=== PATIENT | female | born 1980 | race African-American/Black ===

== ENCOUNTER 2018-02-10 23:20 | Inpatient (IN) ==
[2018-02-11 00:41] LABS: Basophils # 0.1 10*3/uL (0.0-0.2); Basophils % 1.2 % (0.0-0.8); Eosinophils # 0.2 10*3/uL (0.0-0.87); Eosinophils % 2.4 % (0.00-10.9); Hematocrit 40.6 VOL% (35.7-47.0); Hemoglobin 13.2 GM/DL (12.0-16.0); Immature Granulocytes % 0.4 %; Immature Granulocytes Absolute 0.03 #; Lymphocytes % 40.1 % (21.3-54.2); Mean Corpuscular HGB Conc 32.5 GM/DL (32-36); Mean Corpuscular Hemoglobin 31 PG (27-34); Mean Corpuscular Volume 95.8 FL (87-102); Mean Platelet Volume 11.5 FL (9.6-12.0); Monocytes # 0.4 10*3/uL (0.11-0.8); Monocytes % 4.8 % (1.7-12.7); Neutrophils # 3.8 10*3/uL (1.4-7.4); Neutrophils % 51.1 % (38.7-73.9); Platelet Count 389 T/CUMM (130-400); Red Blood Count 4.24 MC/CUMM (3.8-5.5); Red Cell Distribution Width 15.9 % (9.3-17.3); White Blood Count 7.4 T/CUMM (4-12)
[2018-02-11 00:45] LABS: Alanine Aminotransferase 81 U/L (13-56); Albumin 3.6 G/DL (3.4-5.0); Alkaline Phosphatase 190 U/L (45-117); Aspartate Amino Transferase 32 U/L (0-37); Bilirubin,Total < 0.39 MG/DL (0.2-1.0); Blood Urea Nitrogen 20 MG/DL (7-18); Calcium 9.2 MG/DL (8.5-10.1); Glucose 369 MG/DL (74-106); Osmolality,Calculated 287.1 MOS/KG (273-304); Potassium 4.4 MMOL/L (3.5-5.1); Sodium 135 MMOL/L (136-145)
[2018-02-11 01:01] LABS: INR 0.9; PT Patient Result 9.8 SECS
[2018-02-11] MEDS ORDERED: INSULIN REGULAR 100 UNIT/ML IV STA (01:29)
[2018-02-11] MEDS ORDERED: SODIUM CHLORIDE 0.9% 1,000 ML IV STA (01:29)
[2018-02-11] MEDS ORDERED: MORPHINE 4 MG/1 ML VIAL IV STA (01:30)
[2018-02-11] MEDS ORDERED: ONDANSETRON 4 MG/2 ML VIAL IV STA (01:30)
[2018-02-11 01:31] LABS: Apearance,Urine CLOUDY (Clear); Bilirubin,Urine Negative (Negative); Blood, Urine Negative (Negative); Glucose,Urine (UA) >=500 mg/dL (Negative); Ketones,Urine 80 mg/dL (Negative); Nitrite,Urine Negative (Negative); Protein,Urine Negative; RBC,Urine 6 /HPF (0-4); Squamous Epithelial Cell,Urine Moderate /HPF (0-10); Urine Color Yellow (Yellow); Urine Urobilinogen < 2.0 EU/DL (0.2-1.0); WBC,Urine 8 /HPF (0-6)
[2018-02-11] MEDS ORDERED: HYDROmorphone 2 MG/1 ML VIAL IV STA (02:10)
[2018-02-11] MEDS ORDERED: DEXTROSE 50% 25 GM/50 ML VIAL IV PRN (04:16)
[2018-02-11] MEDS ORDERED: GLUCAGON 1 MG VIAL IM PRN (04:16)
[2018-02-11] MEDS ORDERED: ACETAMINOPHEN 325 MG TABLET PO PRN (04:16)
[2018-02-11] MEDS ORDERED: ZALEPLON 5 MG CAPSULE PO PRN (04:20)
[2018-02-11] MEDS ORDERED: ALBUTEROL 2.5 MG/3 ML NEB RESP TX PRN (04:20)
[2018-02-11] MEDS ORDERED: SODIUM CHLORIDE 0.9% 1,000 ML IV SCH (04:30)
[2018-02-11] MEDS: MORPHINE 4 MG/1 ML VIAL IV PRN ×4 (07:02→22:12)
[2018-02-11] MEDS: ONDANSETRON 4 MG/2 ML VIAL IV PRN ×2 (08:17→20:31)
[2018-02-11] MEDS: ENOXAPARIN 40 MG/0.4 ML SYRINGE SUBCUT SCH (08:20)
[2018-02-11] MEDS: PREGABALIN 75 MG CAPSULE PO SCH ×2 (08:25→20:32)
[2018-02-11] MEDS: FAMOTIDINE 20 MG TABLET PO SCH ×2 (08:25→20:32)
[2018-02-11] MEDS: LISINOPRIL 10 MG TABLET PO SCH (08:25)
[2018-02-11] MEDS: INSULIN LISPRO PROTAMINE/LISPRO 75/25 100 UNIT/ML SUBCUT SCH ×2 (08:39→18:09)
[2018-02-11] MEDS: INSULIN REGULAR 100 UNIT/ML SUBCUT SCH ×3 (08:40→15:31)
[2018-02-11] MEDS: INSULIN LISPRO 100 UNIT/ML SUBCUT SCH ×4 (08:42→20:30)
[2018-02-11] MEDS ORDERED: PANTOPRAZOLE 40 MG VIAL IV SCH (09:00)
[2018-02-11] MEDS: METOCLOPRAMIDE 10 MG/2 ML VIAL IV SCH ×2 (13:05→18:14)
[2018-02-11] MEDS: ALPRAZolam 0.25 MG TABLET PO PRN (13:15)
[2018-02-11] MEDS: SODIUM CHLORIDE 0.9% 1,000 ML IV SCH (13:20)
[2018-02-11] MEDS: PANTOPRAZOLE 40 MG TABLET PO SCH ×2 (14:22→20:32)
[2018-02-11] MEDS ORDERED: ATORVASTATIN 40 MG TABLET PO SCH (21:00)
[2018-02-12] MEDS: METOCLOPRAMIDE 10 MG/2 ML VIAL IV SCH ×3 (00:32→13:11)
[2018-02-12] MEDS: ONDANSETRON 4 MG/2 ML VIAL IV PRN ×3 (00:33→13:12)
[2018-02-12] MEDS: SODIUM CHLORIDE 0.9% 1,000 ML IV SCH (01:54)
[2018-02-12] MEDS: MORPHINE 4 MG/1 ML VIAL IV PRN ×3 (04:16→13:10)
[2018-02-12] MEDS: ALPRAZolam 0.25 MG TABLET PO PRN (05:26)
[2018-02-12 06:29] LABS: Basophils # 0.1 10*3/uL (0.0-0.2); Basophils % 0.6 % (0.0-0.8); Eosinophils # 0.2 10*3/uL (0.0-0.87); Eosinophils % 2.9 % (0.00-10.9); Hematocrit 31.8 VOL% (35.7-47.0); Immature Granulocytes % 0.4 %; Immature Granulocytes Absolute 0.03 #; Lymphocytes # 3.1 10*3/uL (1.4-4.0); Lymphocytes % 38.3 % (21.3-54.2); Mean Corpuscular HGB Conc 31.4 GM/DL (32-36); Mean Corpuscular Hemoglobin 30 PG (27-34); Mean Corpuscular Volume 96.1 FL (87-102); Mean Platelet Volume 10.9 FL (9.6-12.0); Monocytes # 0.4 10*3/uL (0.11-0.8); Monocytes % 5.1 % (1.7-12.7); Neutrophils # 4.2 10*3/uL (1.4-7.4); Neutrophils % 52.7 % (38.7-73.9); Platelet Count 287 T/CUMM (130-400); Red Blood Count 3.31 MC/CUMM (3.8-5.5)
[2018-02-12 07:08] LABS: Alanine Aminotransferase 48 U/L (13-56); Albumin 2.7 G/DL (3.4-5.0); Alkaline Phosphatase 125 U/L (45-117); Amylase 39 U/L (25-115); Aspartate Amino Transferase 22 U/L (0-37); Bilirubin,Total < 0.39 MG/DL (0.2-1.0); Blood Urea Nitrogen 13 MG/DL (7-18); Calcium 8.2 MG/DL (8.5-10.1); Glucose 182 MG/DL (74-106); Osmolality,Calculated 283.4 MOS/KG (273-304); Potassium 4.1 MMOL/L (3.5-5.1); Sodium 140 MMOL/L (136-145); Total Protein 6.4 G/DL (6.4-8.3)
[2018-02-12] MEDS: INSULIN LISPRO PROTAMINE/LISPRO 75/25 100 UNIT/ML SUBCUT SCH (08:20)
[2018-02-12] MEDS: INSULIN LISPRO 100 UNIT/ML SUBCUT SCH ×2 (08:21→11:54)
[2018-02-12] MEDS: FAMOTIDINE 20 MG TABLET PO SCH (08:21)
[2018-02-12] MEDS: INSULIN REGULAR 100 UNIT/ML SUBCUT SCH ×2 (08:21→11:55)
[2018-02-12] MEDS: PANTOPRAZOLE 40 MG TABLET PO SCH (08:22)
[2018-02-12] MEDS: LISINOPRIL 10 MG TABLET PO SCH (08:22)
[2018-02-12] MEDS: PREGABALIN 75 MG CAPSULE PO SCH (08:22)
[2018-02-12] MEDS: ENOXAPARIN 40 MG/0.4 ML SYRINGE SUBCUT SCH (08:22)
[2018-02-12] MEDS ORDERED: ALUM/MAG/SIMETH/LIDO VISC 1:1 30 ML BOTTLE PO PRN (08:36)
[2018-02-12] MEDS ORDERED: METOPROLOL TARTRATE 25 MG TABLET PO SCH (11:30)
[2018-02-12 12:38] VITALS: BP 138/83
== END 2018-02-12 14:22 | disposition home health service (06) | DRG 48 ==
LOC: N.ED 23:20 → N.EDINP 02-11 04:16 → MERGE 02-11 04:17 → SUATTDRO 02-11 04:17 → N.2E 02-11 05:19
PROVIDERS: ADMIT Internal Medicine; ATTEND Internal Medicine

== ENCOUNTER 2018-02-14 14:19 | Inpatient (IN) ==
[2018-02-14] MEDS ORDERED: ONDANSETRON 4 MG/2 ML VIAL IV STA (15:26)
[2018-02-14] MEDS ORDERED: SODIUM CHLORIDE 0.9% 1,000 ML IV STA ×2 (15:26→16:56)
[2018-02-14] MEDS ORDERED: ONDANSETRON 4 MG/2 ML VIAL ONE (15:28)
[2018-02-14 15:29] LABS: Basophils # 0.1 10*3/uL (0.0-0.2); Basophils % 0.7 % (0.0-0.8); Eosinophils # 0.2 10*3/uL (0.0-0.87); Eosinophils % 2.1 % (0.00-10.9); Hematocrit 37.1 VOL% (35.7-47.0); Immature Granulocytes % 0.6 %; Immature Granulocytes Absolute 0.05 #; Lymphocytes # 1.7 10*3/uL (1.4-4.0); Lymphocytes % 19.9 % (21.3-54.2); Mean Corpuscular HGB Conc 32.3 GM/DL (32-36); Mean Corpuscular Hemoglobin 31 PG (27-34); Mean Corpuscular Volume 95.9 FL (87-102); Mean Platelet Volume 11.3 FL (9.6-12.0); Monocytes # 0.4 10*3/uL (0.11-0.8); Monocytes % 4.7 % (1.7-12.7); Neutrophils # 6.2 10*3/uL (1.4-7.4); Platelet Count 316 T/CUMM (130-400); Red Blood Count 3.87 MC/CUMM (3.8-5.5); Red Cell Distribution Width 16.3 % (9.3-17.3); White Blood Count 8.5 T/CUMM (4-12)
[2018-02-14 15:41] LABS: Calcium 9.1 MG/DL (8.5-10.1); Osmolality,Calculated 285.4 MOS/KG (273-304); Potassium 4.9 MMOL/L (3.5-5.1)
[2018-02-14 15:46] LABS: Apearance,Urine Slightly Hazy (Clear); Bacteria,Urine Occasional /HPF (Few); Bilirubin,Urine Negative (Negative); Blood, Urine Negative (Negative); Glucose,Urine (UA) >=500 mg/dL (Negative); Hyaline Casts,Urine 1 /LPF (0-3); Ketones,Urine 20 mg/dL (Negative); Nitrite,Urine Negative (Negative); Protein,Urine Negative; RBC,Urine 2 /HPF (0-4); Squamous Epithelial Cell,Urine Few /HPF (0-10); Urine Color Yellow (Yellow); Urine Specific Gravity 1.025 (1.001-1.035); Urine Urobilinogen < 2.0 EU/DL (0.2-1.0); WBC,Urine 5 /HPF (0-6)
[2018-02-14 15:49] LABS: Barbiturates Screen,Urine Negative (Negative); Benzodiazepines Screen,Urine Negative (Negative); Cannabinoid Screen,Urine Negative (Negative); Opiate Screen,Urine Positive (Negative); Phencyclidine Screen,Urine Negative (Negative)
[2018-02-14] MEDS ORDERED: MORPHINE 4 MG/1 ML VIAL IV STA (16:01)
[2018-02-14] MEDS ORDERED: MORPHINE 4 MG/1 ML VIAL ONE (16:17)
[2018-02-14 16:19] LABS: Alanine Aminotransferase 94 U/L (13-56); Albumin 3.3 G/DL (3.4-5.0); Alkaline Phosphatase 186 U/L (45-117); Aspartate Amino Transferase 94 U/L (0-37); Bilirubin,Total < 0.39 MG/DL (0.2-1.0); Blood Urea Nitrogen 15 MG/DL (7-18); Calcium 8.9 MG/DL (8.5-10.1); Glucose 436 MG/DL (74-106); Osmolality,Calculated 289.1 MOS/KG (273-304); Sodium 135 MMOL/L (136-145); Total Protein 7.6 G/DL (6.4-8.3)
[2018-02-14 16:48] LABS: Lactic Acid 0.9 MMOL/L (0.4-2.0)
[2018-02-14] MEDS ORDERED: INSULIN REGULAR 100 UNIT/ML IV STA (18:20)
[2018-02-14] MEDS ORDERED: ONDANSETRON 4 MG/2 ML VIAL IV PRN (20:42)
[2018-02-14] MEDS ORDERED: PROMETHAZINE 25 MG/1 ML VIAL IM PRN (20:42)
[2018-02-14] MEDS ORDERED: ZALEPLON 5 MG CAPSULE PO PRN (20:42)
[2018-02-14] MEDS ORDERED: DEXTROSE 50% 25 GM/50 ML VIAL IV PRN (20:42)
[2018-02-14] MEDS ORDERED: ACETAMINOPHEN 325 MG TABLET PO PRN (20:42)
[2018-02-14] MEDS ORDERED: cefTRIAXone 1,000 MG in SYRINGE 1 EACH IV SCH (21:00)
[2018-02-14] MEDS ORDERED: ENOXAPARIN 40 MG/0.4 ML SYRINGE SUBCUT SCH (21:00)
[2018-02-14] MEDS ORDERED: ATORVASTATIN 40 MG TABLET PO SCH (21:00)
[2018-02-14] MEDS: SODIUM CHLORIDE 0.9% 1,000 ML IV SCH (22:00)
[2018-02-14] MEDS ORDERED: MORPHINE 4 MG/1 ML VIAL IV ONE (22:06)
[2018-02-14] MEDS: INSULIN REGULAR 100 UNIT/ML SUBCUT SCH (22:20)
[2018-02-14] MEDS: ALPRAZolam 0.25 MG TABLET PO SCH (22:30)
[2018-02-14] MEDS: METOPROLOL TARTRATE 25 MG TABLET PO SCH (22:30)
[2018-02-14] MEDS: PREGABALIN 75 MG CAPSULE PO SCH (22:40)
[2018-02-14 23:04] LABS: Apearance,Urine Slightly Hazy (Clear); Bilirubin,Urine Negative (Negative); Blood, Urine Negative (Negative); Glucose,Urine (UA) >=500 mg/dL (Negative); Ketones,Urine 80 mg/dL (Negative); Nitrite,Urine Negative (Negative); Protein,Urine Negative; RBC,Urine 2 /HPF (0-4); Squamous Epithelial Cell,Urine Occasional /HPF (0-10); Urine Color Straw (Yellow); Urine Specific Gravity 1.021 (1.001-1.035); Urine Urobilinogen < 2.0 EU/DL (0.2-1.0); WBC,Urine 3 /HPF (0-6)
[2018-02-14] MEDS: ALUM/MAG/SIMETH/LIDO VISC 1:1 30 ML BOTTLE PO SCH ×2 (23:39→23:48)
[2018-02-14] MEDS: METOCLOPRAMIDE 10 MG/2 ML VIAL IV SCH (23:43)
[2018-02-15] MEDS: INSULIN LISPRO PROTAMINE/LISPRO 75/25 100 UNIT/ML SUBCUT SCH ×2 (00:42→08:55)
[2018-02-15] MEDS: KETOROLAC 15 MG/1 ML VIAL IV PRN ×3 (02:41→15:15)
[2018-02-15] MEDS: SODIUM CHLORIDE 0.9% 1,000 ML IV SCH ×4 (02:42→13:28)
[2018-02-15] MEDS: METOCLOPRAMIDE 10 MG/2 ML VIAL IV SCH ×3 (02:42→15:16)
[2018-02-15 03:36] LABS: Basophils # 0.1 10*3/uL (0.0-0.2); Basophils % 0.8 % (0.0-0.8); Eosinophils # 0.3 10*3/uL (0.0-0.87); Hematocrit 35.3 VOL% (35.7-47.0); Hemoglobin 11.5 GM/DL (12.0-16.0); Immature Granulocytes % 0.4 %; Immature Granulocytes Absolute 0.05 #; Lymphocytes # 6.2 10*3/uL (1.4-4.0); Mean Corpuscular HGB Conc 32.6 GM/DL (32-36); Mean Corpuscular Hemoglobin 31 PG (27-34); Mean Corpuscular Volume 94.4 FL (87-102); Mean Platelet Volume 11.4 FL (9.6-12.0); Monocytes # 1.1 10*3/uL (0.11-0.8); Monocytes % 7.7 % (1.7-12.7); Neutrophils # 6.4 10*3/uL (1.4-7.4); Neutrophils % 45.1 % (38.7-73.9); Platelet Count 354 T/CUMM (130-400); Red Blood Count 3.74 MC/CUMM (3.8-5.5); Red Cell Distribution Width 16.3 % (9.3-17.3); White Blood Count 14.1 T/CUMM (4-12)
[2018-02-15 03:43] LABS: Alanine Aminotransferase 70 U/L (13-56); Albumin 3.2 G/DL (3.4-5.0); Alkaline Phosphatase 157 U/L (45-117); Aspartate Amino Transferase 41 U/L (0-37); Bilirubin,Total < 0.39 MG/DL (0.2-1.0); Blood Urea Nitrogen 13 MG/DL (7-18); Calcium 9.1 MG/DL (8.5-10.1); Osmolality,Calculated 278.1 MOS/KG (273-304); Potassium 3.2 MMOL/L (3.5-5.1); Sodium 142 MMOL/L (136-145); Total Protein 7.4 G/DL (6.4-8.3)
[2018-02-15 03:45] LABS: Glucose 28 MG/DL (74-106)
[2018-02-15] MEDS: ALUM/MAG/SIMETH/LIDO VISC 1:1 30 ML BOTTLE PO SCH ×3 (06:42→17:38)
[2018-02-15] MEDS: INSULIN REGULAR 100 UNIT/ML SUBCUT SCH ×3 (08:28→15:29)
[2018-02-15] MEDS: METOPROLOL TARTRATE 25 MG TABLET PO SCH (08:28)
[2018-02-15] MEDS: PREGABALIN 75 MG CAPSULE PO SCH (08:28)
[2018-02-15] MEDS: ALPRAZolam 0.25 MG TABLET PO SCH (08:28)
[2018-02-15] MEDS ORDERED: POTASSIUM CHLORIDE RIDER 10 MEQ in PREMIX 1 EACH IV PRN (08:46)
[2018-02-15] MEDS ORDERED: LISINOPRIL 10 MG TABLET PO SCH (09:00)
[2018-02-15] MEDS ORDERED: POTASSIUM CHLORIDE 20 MEQ/15 ML UDCUP PER TUBE PRN (10:07)
[2018-02-15] MEDS ORDERED: traMADol 50 MG TABLET PO PRN (15:07)
[2018-02-15 15:46] VITALS: BP 176/91
[2018-02-15] MEDS ORDERED: INSULIN LISPRO PROTAMINE/LISPRO 75/25 100 UNIT/ML SUBCUT SCH (16:30)
[2018-02-16] MEDS ORDERED: INSULIN LISPRO PROTAMINE/LISPRO 75/25 100 UNIT/ML SUBCUT SCH (07:30)
== END 2018-02-15 18:45 | disposition left against medical advice (07) | DRG 48 ==
LOC: N.ED 14:19 → MERGE 18:18 → N.CC 18:18 → N.2E 02-15 13:42
PROVIDERS: ADMIT Internal Medicine; ATTEND Internal Medicine

== ENCOUNTER 2018-02-26 22:32 | Inpatient (IN) ==
[2018-02-26] MEDS ORDERED: FUROSEMIDE 20 MG/2 ML VIAL ONE (22:42)
[2018-02-26] MEDS ORDERED: ONDANSETRON 4 MG/2 ML VIAL ONE (22:43)
[2018-02-26] MEDS ORDERED: MORPHINE 4 MG/1 ML VIAL ONE (22:43)
[2018-02-26] MEDS ORDERED: ONDANSETRON 4 MG/2 ML VIAL IV STA (22:56)
[2018-02-26] MEDS ORDERED: ASPIRIN 325 MG TABLET PO STA (22:56)
[2018-02-26] MEDS ORDERED: LEVALBUTEROL 1.25 MG/3 ML NEB RESP TX STA (22:56)
[2018-02-26] MEDS ORDERED: FUROSEMIDE 100 MG/10 ML VIAL IV STA (22:56)
[2018-02-26] MEDS ORDERED: methylPREDNISolone SOD SUC 125 MG/2 ML VIAL IV STA (22:56)
[2018-02-26] MEDS ORDERED: ENOXAPARIN 100 MG/ML SYRINGE SUBCUT STA (22:56)
[2018-02-26] MEDS ORDERED: MORPHINE 4 MG/1 ML VIAL IV STA (22:56)
[2018-02-26 23:05] LABS: Basophils # 0.1 10*3/uL (0.0-0.2); Basophils % 0.4 % (0.0-0.8); Eosinophils # 0.4 10*3/uL (0.0-0.87); Eosinophils % 2.1 % (0.00-10.9); Hematocrit 35.6 VOL% (35.7-47.0); Hemoglobin 11.4 GM/DL (12.0-16.0); Immature Granulocytes % 0.6 %; Lymphocytes # 2.1 10*3/uL (1.4-4.0); Lymphocytes % 12.1 % (21.3-54.2); Mean Corpuscular Hemoglobin 30 PG (27-34); Mean Corpuscular Volume 94.4 FL (87-102); Mean Platelet Volume 12.1 FL (9.6-12.0); Monocytes # 0.8 10*3/uL (0.11-0.8); Monocytes % 4.6 % (1.7-12.7); Neutrophils # 13.9 10*3/uL (1.4-7.4); Neutrophils % 80.2 % (38.7-73.9); Platelet Count 343 T/CUMM (130-400); Red Blood Count 3.77 MC/CUMM (3.8-5.5); Red Cell Distribution Width 16.3 % (9.3-17.3); White Blood Count 17.3 T/CUMM (4-12)
[2018-02-26 23:16] LABS: INR 0.9; PT Patient Result 9.5 SECS
[2018-02-26 23:33] LABS: Alanine Aminotransferase 293 U/L (13-56); Alkaline Phosphatase 310 U/L (45-117); Aspartate Amino Transferase 242 U/L (0-37); Blood Urea Nitrogen 20 MG/DL (7-18); Calcium 9.2 MG/DL (8.5-10.1); Glucose 227 MG/DL (74-106); Osmolality,Calculated 279.1 MOS/KG (273-304); Sodium 135 MMOL/L (136-145); Total Protein 8.2 G/DL (6.4-8.3); Troponin I < 0.015 NG/ML (0.00-0.045)
[2018-02-26 23:34] LABS: ABG Base Excess -0.9 MMOL/L (-2.5-2.5); ABG Oxygen Saturation 97.1 % (95-100); ABG PCO2 31.1 MM HG (35-48); ABG PH 7.468 (7.35-7.45)
[2018-02-26 23:58] LABS: Apearance,Urine CLEAR (Clear); Bacteria,Urine Occasional /HPF (Few); Bilirubin,Urine Negative (Negative); Blood, Urine Large mg/dL (Negative); Glucose,Urine (UA) 50 mg/dL (Negative); Ketones,Urine Negative (Negative); Mucus,Urine Occasional /LPF (Occasional); Nitrite,Urine Negative (Negative); Protein,Urine Negative; RBC,Urine <1 /HPF (0-4); Squamous Epithelial Cell,Urine Occasional /HPF (0-10); Urine Color Straw (Yellow); Urine Specific Gravity 1.008 (1.001-1.035); Urine Urobilinogen < 2.0 EU/DL (0.2-1.0); WBC,Urine 1 /HPF (0-6)
[2018-02-27] MEDS ORDERED: LEVOFLOXACIN INJ 750 MG in PREMIX 1 EACH IV STA (00:01)
[2018-02-27 00:02] LABS: Barbiturates Screen,Urine Negative (Negative); Benzodiazepines Screen,Urine Negative (Negative); Cannabinoid Screen,Urine Negative (Negative); Opiate Screen,Urine Positive (Negative); Phencyclidine Screen,Urine Negative (Negative)
[2018-02-27] MEDS ORDERED: LORazepam 2 MG/1 ML VIAL IV STA (00:22)
[2018-02-27] MEDS ORDERED: traZODone 50 MG TABLET PO PRN (01:23)
[2018-02-27] MEDS ORDERED: ACETAMINOPHEN 325 MG TABLET PO PRN (01:23)
[2018-02-27] MEDS ORDERED: GLUCAGON 1 MG VIAL IM PRN (01:30)
[2018-02-27] MEDS ORDERED: DEXTROSE 50% 25 GM/50 ML VIAL IV PRN (01:30)
[2018-02-27 01:55] LABS: ABG Base Excess -0.3 MMOL/L (-2.5-2.5); ABG HCO3 24.2 MMOL/L (20-26); ABG Oxygen Saturation 97.1 % (95-100); ABG PCO2 31.3 MM HG (35-48); ABG PH 7.468 (7.35-7.45); ABG PO2 83.9 MM HG (80-95); ABG TCO2 20.3 MMOL/L (23-27); Allen Test Positive
[2018-02-27] MEDS ORDERED: PIPERACILLIN/TAZOBACTAM 3,375 MG in SODIUM CHLORIDE 0.9% 100 ML IV ONE (04:30)
[2018-02-27] MEDS: VANCOMYCIN INJ 1,000 MG in SODIUM CHLORIDE 0.9% 250 ML IV SCH ×2 (04:31→15:31)
[2018-02-27 05:03] LABS: Basophils # 0.1 10*3/uL (0.0-0.2); Basophils % 0.5 % (0.0-0.8); Eosinophils # 0.2 10*3/uL (0.0-0.87); Eosinophils % 0.9 % (0.00-10.9); Hematocrit 32.6 VOL% (35.7-47.0); Hemoglobin 10.6 GM/DL (12.0-16.0); Immature Granulocytes % 0.6 %; Immature Granulocytes Absolute 0.11 #; Lymphocytes # 1.3 10*3/uL (1.4-4.0); Lymphocytes % 7.6 % (21.3-54.2); Mean Corpuscular HGB Conc 32.5 GM/DL (32-36); Mean Corpuscular Hemoglobin 30 PG (27-34); Mean Corpuscular Volume 93.1 FL (87-102); Mean Platelet Volume 12.5 FL (9.6-12.0); Monocytes # 0.6 10*3/uL (0.11-0.8); Monocytes % 3.4 % (1.7-12.7); Neutrophils # 15.3 10*3/uL (1.4-7.4); Platelet Count 305 T/CUMM (130-400); Red Cell Distribution Width 16.3 % (9.3-17.3); White Blood Count 17.6 T/CUMM (4-12)
[2018-02-27 05:29] LABS: Calcium 8.7 MG/DL (8.5-10.1); Osmolality,Calculated 272.2 MOS/KG (273-304); Potassium 3.9 MMOL/L (3.5-5.1)
[2018-02-27 05:47] LABS: HIV Antigen/Antibody Result Nonreactive (Nonreactive); Hepatitis A Ab IgM Quant 0.14 Index; Hepatitis A Ab IgM Result Negative (Negative); Hepatitis B Core IgM Quant 0.07 Index; Hepatitis B Core IgM Result Negative (Negative); Hepatitis B Surface Ag Quant 0.33 Index; Hepatitis B Surface Ag Result Negative (Negative); Hepatitis C Virus Ab Quant 0.13 Index; Hepatitis C Virus Ab Result Negative (Negative)
[2018-02-27] MEDS: ENOXAPARIN 40 MG/0.4 ML SYRINGE SUBCUT SCH (08:45)
[2018-02-27] MEDS: FUROSEMIDE 40 MG/4 ML VIAL IV SCH (08:45)
[2018-02-27] MEDS: INSULIN LISPRO 100 UNIT/ML SUBCUT SCH ×4 (08:45→21:14)
[2018-02-27] MEDS ORDERED: PROMETHAZINE 25 MG TABLET PO PRN (09:40)
[2018-02-27] MEDS ORDERED: ZALEPLON 5 MG CAPSULE PO PRN (09:40)
[2018-02-27] MEDS ORDERED: ALBUTEROL 2.5 MG/3 ML NEB RESP TX PRN (09:40)
[2018-02-27] MEDS ORDERED: ALPRAZolam 0.25 MG TABLET PO PRN (09:40)
[2018-02-27] MEDS: PANTOPRAZOLE 40 MG TABLET PO SCH ×2 (09:50→21:17)
[2018-02-27] MEDS: LISINOPRIL 10 MG TABLET PO SCH (10:30)
[2018-02-27] MEDS: METOPROLOL TARTRATE 25 MG TABLET PO SCH ×2 (10:30→21:16)
[2018-02-27] MEDS: FAMOTIDINE 20 MG TABLET PO SCH ×2 (10:30→21:15)
[2018-02-27] MEDS: PREGABALIN 75 MG CAPSULE PO SCH ×2 (10:30→21:22)
[2018-02-27] MEDS: METOCLOPRAMIDE 5 MG TABLET PO SCH ×2 (11:42→16:44)
[2018-02-27] MEDS: MORPHINE 4 MG/1 ML VIAL IV PRN ×3 (11:42→21:11)
[2018-02-27] MEDS: INSULIN REGULAR 100 UNIT/ML SUBCUT SCH ×2 (12:33→16:44)
[2018-02-27] MEDS ORDERED: INSULIN LISPRO 100 UNIT/ML SUBCUT ONE (15:30)
[2018-02-27] MEDS: ALBUTEROL 2.5 MG/3 ML NEB RESP TX PRN ×2 (15:40→17:58)
[2018-02-27] MEDS: ONDANSETRON 4 MG/2 ML VIAL IV PRN (17:32)
[2018-02-27] MEDS ORDERED: ATORVASTATIN 40 MG TABLET PO SCH (21:00)
[2018-02-27] MEDS: INSULIN LISPRO PROTAMINE/LISPRO 75/25 100 UNIT/ML SUBCUT SCH (21:13)
[2018-02-28] MEDS: ALBUTEROL 2.5 MG/3 ML NEB RESP TX PRN ×2 (00:01→04:49)
[2018-02-28] MEDS: ONDANSETRON 4 MG/2 ML VIAL IV PRN ×2 (01:12→07:49)
[2018-02-28] MEDS: MORPHINE 4 MG/1 ML VIAL IV PRN ×3 (01:14→13:53)
[2018-02-28] MEDS: VANCOMYCIN INJ 1,000 MG in SODIUM CHLORIDE 0.9% 250 ML IV SCH (03:23)
[2018-02-28] MEDS ORDERED: LEVOFLOXACIN INJ 750 MG in PREMIX 1 EACH IV SCH (04:00)
[2018-02-28] MEDS: PREGABALIN 75 MG CAPSULE PO SCH (09:09)
[2018-02-28] MEDS: METOPROLOL TARTRATE 25 MG TABLET PO SCH (09:09)
[2018-02-28] MEDS: FAMOTIDINE 20 MG TABLET PO SCH (09:09)
[2018-02-28] MEDS: PANTOPRAZOLE 40 MG TABLET PO SCH (09:09)
[2018-02-28] MEDS: ENOXAPARIN 40 MG/0.4 ML SYRINGE SUBCUT SCH (09:09)
[2018-02-28] MEDS: METOCLOPRAMIDE 5 MG TABLET PO SCH ×2 (09:09→12:12)
[2018-02-28] MEDS: LISINOPRIL 10 MG TABLET PO SCH (09:09)
[2018-02-28] MEDS: INSULIN LISPRO 100 UNIT/ML SUBCUT SCH ×2 (09:10→12:12)
[2018-02-28] MEDS: INSULIN LISPRO PROTAMINE/LISPRO 75/25 100 UNIT/ML SUBCUT SCH (09:10)
[2018-02-28] MEDS: INSULIN REGULAR 100 UNIT/ML SUBCUT SCH ×2 (09:11→12:12)
[2018-02-28] MEDS: FUROSEMIDE 40 MG/4 ML VIAL IV SCH (09:11)
[2018-02-28 12:24] VITALS: BP 97/50
[2018-02-28] MEDS ORDERED: VANCOMYCIN INJ 1,000 MG in SODIUM CHLORIDE 0.9% 250 ML IV SCH (17:00)
== END 2018-02-28 16:15 | disposition left against medical advice (07) | DRG 139 ==
LOC: N.ED 22:32 → N.EDINP 02-27 01:23 → SUATTDRO 02-27 01:26 → N.ICU 02-27 03:02 → N.5E 02-28 04:10
PROVIDERS: ADMIT Internal Medicine; ATTEND Internal Medicine

== ENCOUNTER 2018-03-11 09:48 | Inpatient (IN) ==
[2018-03-11] MEDS ORDERED: SODIUM CHLORIDE 0.9% 1,000 ML IV STA (10:05)
[2018-03-11] MEDS ORDERED: PANTOPRAZOLE 40 MG VIAL IV STA (10:05)
[2018-03-11] MEDS ORDERED: ONDANSETRON 4 MG/2 ML VIAL IV STA (10:05)
[2018-03-11] MEDS ORDERED: HYDROmorphone 2 MG/1 ML VIAL IV ONE (10:10)
[2018-03-11] MEDS ORDERED: INSULIN REGULAR 100 UNIT/ML IV STA (10:12)
[2018-03-11 10:23] LABS: ABG Base Excess -10.1 MMOL/L (-2.5-2.5); ABG HCO3 16.4 MMOL/L (20-26); ABG Oxygen Saturation 96.2 % (95-100); ABG PCO2 33.1 MM HG (35-48); ABG PH 7.284 (7.35-7.45); ABG PO2 92.6 MM HG (80-95); ABG TCO2 14.2 MMOL/L (23-27)
[2018-03-11 10:26] LABS: Basophils # 0.1 10*3/uL (0.0-0.2); Basophils % 1.3 % (0.0-0.8); Eosinophils # 0.3 10*3/uL (0.0-0.87); Hematocrit 39.8 VOL% (35.7-47.0); Hemoglobin 12.3 GM/DL (12.0-16.0); Immature Granulocytes % 0.5 %; Immature Granulocytes Absolute 0.04 #; Lymphocytes # 2.5 10*3/uL (1.4-4.0); Lymphocytes % 29.5 % (21.3-54.2); Mean Corpuscular HGB Conc 30.9 GM/DL (32-36); Mean Corpuscular Hemoglobin 30 PG (27-34); Mean Corpuscular Volume 97.1 FL (87-102); Mean Platelet Volume 11.3 FL (9.6-12.0); Monocytes # 0.5 10*3/uL (0.11-0.8); Monocytes % 5.9 % (1.7-12.7); Neutrophils # 5.1 10*3/uL (1.4-7.4); Neutrophils % 59.8 % (38.7-73.9); Platelet Count 388 T/CUMM (130-400); Red Cell Distribution Width 15.7 % (9.3-17.3); White Blood Count 8.5 T/CUMM (4-12)
[2018-03-11 10:40] LABS: Apearance,Urine CLOUDY (Clear); Bacteria,Urine Occasional /HPF (Few); Bilirubin,Urine Negative (Negative); Blood, Urine Negative (Negative); Glucose,Urine (UA) >=500 mg/dL (Negative); Hyaline Casts,Urine 10 /LPF (0-3); Ketones,Urine 80 mg/dL (Negative); Mucus,Urine Few /LPF (Occasional); Nitrite,Urine Negative (Negative); Protein,Urine 100 MG/DL; RBC,Urine 2 /HPF (0-4); Squamous Epithelial Cell,Urine Moderate /HPF (0-10); Urine Color Yellow (Yellow); Urine Specific Gravity 1.018 (1.001-1.035); WBC,Urine 15 /HPF (0-6)
[2018-03-11 10:49] LABS: Barbiturates Screen,Urine Negative (Negative); Benzodiazepines Screen,Urine Negative (Negative); Cannabinoid Screen,Urine Negative (Negative); Opiate Screen,Urine Negative (Negative); Phencyclidine Screen,Urine Negative (Negative)
[2018-03-11] MEDS ORDERED: SODIUM BICARBONATE 50 MEQ/50 ML VIAL IV STA (10:54)
[2018-03-11] MEDS ORDERED: SODIUM BICARBONATE 50 MEQ/50 ML SYRINGE IV ONE (10:57)
[2018-03-11] MEDS ORDERED: PROMETHAZINE 25 MG/1 ML VIAL ONE (11:11)
[2018-03-11] MEDS ORDERED: PROMETHAZINE 25 MG/1 ML VIAL IM STA (11:17)
[2018-03-11 11:18] LABS: Lactic Acid 1.8 MMOL/L (0.4-2.0)
[2018-03-11 11:19] LABS: Albumin 3.5 G/DL (3.4-5.0); Bilirubin,Total 0.4 MG/DL (0.2-1.0); Calcium 9.7 MG/DL (8.5-10.1); Osmolality,Calculated 283.4 MOS/KG (273-304); Potassium 4.9 MMOL/L (3.5-5.1); Total Protein 8.1 G/DL (6.4-8.3)
[2018-03-11] MEDS ORDERED: MAGNESIUM SULF RIDER 4 GM in PREMIX 1 EACH IV PRN (11:41)
[2018-03-11] MEDS ORDERED: SODIUM PHOSPHATE INJ 17.5 MMOL in SODIUM CHLORIDE 0.9% 250 ML IV PRN (11:41)
[2018-03-11] MEDS ORDERED: SODIUM BICARB INJ 100 MEQ in STERILE WATER INJ 400 ML IV PRN (11:41)
[2018-03-11] MEDS ORDERED: LEVOFLOXACIN INJ 750 MG in PREMIX 1 EACH IV STA (11:41)
[2018-03-11] MEDS ORDERED: DEXTROSE 50% 25 GM/50 ML VIAL IV PRN ×2 (11:41)
[2018-03-11] MEDS ORDERED: SODIUM CHLORIDE 0.9% 1,000 ML IV ONE (11:41)
[2018-03-11] MEDS ORDERED: POTASSIUM CHLORIDE RIDER 10 MEQ in PREMIX 1 EACH IV PRN (11:41)
[2018-03-11] MEDS ORDERED: INSULIN REGULAR 100 UNIT/ML IV ONE (11:41)
[2018-03-11] MEDS ORDERED: MAGNESIUM SULF RIDER 2 GM in PREMIX 1 EACH IV PRN (11:41)
[2018-03-11] MEDS ORDERED: ZALEPLON 5 MG CAPSULE PO PRN (11:49)
[2018-03-11] MEDS ORDERED: PROMETHAZINE 25 MG TABLET PO PRN (11:49)
[2018-03-11] MEDS ORDERED: ALPRAZolam 0.25 MG TABLET PO PRN (11:49)
[2018-03-11] MEDS ORDERED: ALBUTEROL 2.5 MG/3 ML NEB RESP TX PRN (11:49)
[2018-03-11] MEDS ORDERED: ENOXAPARIN 40 MG/0.4 ML SYRINGE SUBCUT SCH (12:00)
[2018-03-11] MEDS ORDERED: LEVOFLOXACIN INJ 750 MG in PREMIX 1 EACH IV SCH (12:30)
[2018-03-11] MEDS ORDERED: INSULIN REGULAR DRIP 100 ML IV SCH (12:30)
[2018-03-11 12:59] LABS: Calcium 9.1 MG/DL (8.5-10.1); Potassium 4.3 MMOL/L (3.5-5.1)
[2018-03-11] MEDS: SODIUM CHLORIDE 0.9% 1,000 ML IV SCH ×2 (14:10→16:31)
[2018-03-11] MEDS ORDERED: MORPHINE 4 MG/1 ML VIAL IV ONE (14:15)
[2018-03-11 14:31] LABS: ABG Base Excess -9.8 MMOL/L (-2.5-2.5); ABG HCO3 16.5 MMOL/L (20-26); ABG PCO2 34.4 MM HG (35-48); ABG PH 7.279 (7.35-7.45); ABG PO2 83.1 MM HG (80-95); ABG TCO2 14.9 MMOL/L (23-27)
[2018-03-11] MEDS: DEXTROSE 5% NACL 0.9% 1,000 ML IV SCH ×2 (16:15→19:06)
[2018-03-11] MEDS ORDERED: METOCLOPRAMIDE 5 MG TABLET PO SCH (16:30)
[2018-03-11] MEDS ORDERED: SODIUM CHLORIDE 0.9% 1,000 ML IV SCH (16:41)
[2018-03-11 17:04] LABS: Calcium 7.8 MG/DL (8.5-10.1); Osmolality,Calculated 285.5 MOS/KG (273-304)
[2018-03-11 17:18] LABS: Apearance,Urine CLEAR (Clear); Bilirubin,Urine Negative (Negative); Blood, Urine Negative (Negative); Glucose,Urine (UA) >=500 mg/dL (Negative); Ketones,Urine 80 mg/dL (Negative); Mucus,Urine Occasional /LPF (Occasional); Nitrite,Urine Negative (Negative); Protein,Urine 30 MG/DL; RBC,Urine 1 /HPF (0-4); Urine Color Yellow (Yellow); Urine Specific Gravity 1.014 (1.001-1.035); Urine Urobilinogen < 2.0 EU/DL (0.2-1.0); WBC,Urine 1 /HPF (0-6)
[2018-03-11] MEDS ORDERED: SODIUM CHLORIDE 0.45% 1,000 ML IV SCH (19:00)
[2018-03-11 19:48] LABS: Calcium 7.5 MG/DL (8.5-10.1); Osmolality,Calculated 287.4 MOS/KG (273-304); Potassium 3.8 MMOL/L (3.5-5.1)
[2018-03-11] MEDS: DEXTROSE 5% NACL 0.45% 1,000 ML IV SCH (20:08)
[2018-03-11] MEDS ORDERED: FAMOTIDINE 20 MG TABLET PO SCH (21:00)
[2018-03-11] MEDS ORDERED: PREGABALIN 75 MG CAPSULE PO SCH (21:00)
[2018-03-11] MEDS ORDERED: PANTOPRAZOLE 40 MG TABLET PO SCH (21:00)
[2018-03-11] MEDS ORDERED: METOPROLOL TARTRATE 25 MG TABLET PO SCH (21:00)
[2018-03-12] MEDS ORDERED: INSULIN REGULAR 100 UNIT/ML SUBCUT SCH
[2018-03-12] MEDS: DEXTROSE 5% NACL 0.45% 1,000 ML IV SCH (00:12)
[2018-03-12 00:15] VITALS: BP 128/82
[2018-03-12 00:40] LABS: Basophils # 0.1 10*3/uL (0.0-0.2); Basophils % 0.9 % (0.0-0.8); Eosinophils # 0.2 10*3/uL (0.0-0.87); Eosinophils % 2.1 % (0.00-10.9); Hematocrit 31.5 VOL% (35.7-47.0); Hemoglobin 9.6 GM/DL (12.0-16.0); Immature Granulocytes % 0.3 %; Immature Granulocytes Absolute 0.02 #; Lymphocytes # 2.5 10*3/uL (1.4-4.0); Mean Corpuscular HGB Conc 30.5 GM/DL (32-36); Mean Corpuscular Hemoglobin 30 PG (27-34); Mean Corpuscular Volume 97.2 FL (87-102); Mean Platelet Volume 10.9 FL (9.6-12.0); Monocytes # 0.5 10*3/uL (0.11-0.8); Monocytes % 6.7 % (1.7-12.7); Neutrophils # 4.5 10*3/uL (1.4-7.4); Platelet Count 346 T/CUMM (130-400); Red Blood Count 3.24 MC/CUMM (3.8-5.5); Red Cell Distribution Width 15.5 % (9.3-17.3); White Blood Count 7.8 T/CUMM (4-12)
[2018-03-12 01:00] LABS: Calcium 7.6 MG/DL (8.5-10.1); Osmolality,Calculated 285.5 MOS/KG (273-304); Potassium 3.7 MMOL/L (3.5-5.1)
[2018-03-12] MEDS ORDERED: SODIUM CHLORIDE 0.45% 1,000 ML IV SCH (04:41)
[2018-03-12] MEDS ORDERED: LISINOPRIL 10 MG TABLET PO SCH (08:00)
== END 2018-03-12 00:58 | disposition left against medical advice (07) | DRG 420 ==
LOC: EDUNIT# → EDBD → N.ED 09:48 → N.EDINP 11:48 → N.ICU 12:03
PROVIDERS: ADMIT Internal Medicine; ATTEND Internal Medicine

== ENCOUNTER 2018-06-16 21:13 | Inpatient (IN) ==
[2018-06-16] MEDS ORDERED: ONDANSETRON 4 MG/2 ML VIAL IV STA (21:49)
[2018-06-16] MEDS ORDERED: SODIUM CHLORIDE 0.9% 1,000 ML IV STA ×3 (21:49→23:04)
[2018-06-16] MEDS ORDERED: INSULIN REGULAR 100 UNIT/ML IV STA (21:50)
[2018-06-16 22:07] LABS: Alanine Aminotransferase 22 U/L (13-56); Albumin 3.5 G/DL (3.4-5.0); Alkaline Phosphatase 129 U/L (45-117); Aspartate Amino Transferase 20 U/L (0-37); Blood Urea Nitrogen 30 MG/DL (7-18); Calcium 9.1 MG/DL (8.5-10.1); Lipase < 50.0 U/L (73-393); Osmolality,Calculated 298.4 MOS/KG (273-304); Potassium 5.9 MMOL/L (3.5-5.1); Sodium 133 MMOL/L (136-145); Total Protein 8.8 G/DL (6.4-8.3)
[2018-06-16 22:11] LABS: Glucose 592 MG/DL (74-106)
[2018-06-16 22:18] LABS: Basophils # 0.1 10*3/uL (0.0-0.2); Basophils % 0.8 % (0.0-0.8); Eosinophils % 0.1 % (0.00-10.9); Hematocrit 44.8 VOL% (35.7-47.0); Hemoglobin 13.2 GM/DL (12.0-16.0); Immature Granulocytes Absolute 0.16 #; Lymphocytes # 1.4 10*3/uL (1.4-4.0); Lymphocytes % 8.9 % (21.3-54.2); Mean Corpuscular HGB Conc 29.5 GM/DL (32-36); Mean Corpuscular Hemoglobin 29 PG (27-34); Mean Corpuscular Volume 97.6 FL (87-102); Mean Platelet Volume 12.5 FL (9.6-12.0); Monocytes # 0.5 10*3/uL (0.11-0.8); Monocytes % 3.1 % (1.7-12.7); Neutrophils # 13.9 10*3/uL (1.4-7.4); Neutrophils % 86.1 % (38.7-73.9); Platelet Count 290 T/CUMM (130-400); Red Blood Count 4.59 MC/CUMM (3.8-5.5); Red Cell Distribution Width 18.6 % (9.3-17.3); White Blood Count 16.2 T/CUMM (4-12)
[2018-06-16] MEDS ORDERED: INSULIN REGULAR DRIP 100 ML IV PRN (22:29)
[2018-06-16 22:56] LABS: Giant Platelets Few; Platelet Estimate Normal; Polychromasia Few
[2018-06-16] MEDS ORDERED: MORPHINE 4 MG/1 ML VIAL IV STA (23:03)
[2018-06-16 23:07] LABS: VBG Base Excess -25.9 MEQ/L (0-4); VBG HCO3 7.1 MEQ/L (24-28); VBG Oxygen Saturation 90.8 %; VBG PCO2 19.9 MMHG (41-51); VBG PH 7.012; VBG PO2 86.2 MMHG (17-40)
[2018-06-16 23:26] LABS: Apearance,Urine CLOUDY (Clear); Bilirubin,Urine Negative (Negative); Blood, Urine Large mg/dL (Negative); Glucose,Urine (UA) >=500 mg/dL (Negative); Hyaline Casts,Urine 6 /LPF (0-3); Ketones,Urine 80 mg/dL (Negative); Nitrite,Urine Negative (Negative); Protein,Urine 100 MG/DL; RBC,Urine 447 /HPF (0-4); Squamous Epithelial Cell,Urine Occasional /HPF (0-10); Urine Color Red (Yellow); Urine Specific Gravity 1.016 (1.001-1.035); Urine Urobilinogen < 2.0 EU/DL (0.2-1.0); WBC,Urine 86 /HPF (0-6)
[2018-06-16] MEDS ORDERED: SODIUM CHLORIDE 0.9% 1,000 ML IV ONE (23:26)
[2018-06-16] MEDS ORDERED: SODIUM BICARB INJ 100 MEQ in STERILE WATER INJ 400 ML IV PRN (23:26)
[2018-06-16] MEDS ORDERED: DEXTROSE 50% 25 GM/50 ML SYRINGE IV PRN ×2 (23:26)
[2018-06-16] MEDS ORDERED: INSULIN REGULAR 100 UNIT/ML IV ONE (23:26)
[2018-06-16] MEDS ORDERED: SODIUM PHOSPHATE IV PRN (23:26)
[2018-06-16] MEDS ORDERED: MAGNESIUM SULF RIDER 2 GM in PREMIX 1 EACH IV PRN (23:26)
[2018-06-16] MEDS ORDERED: SODIUM CHLORIDE 0.9% IV PRN (23:26)
[2018-06-16] MEDS ORDERED: POTASSIUM CHLORIDE RIDER 10 MEQ in PREMIX 1 EACH IV PRN (23:26)
[2018-06-16] MEDS ORDERED: MAGNESIUM SULF RIDER 4 GM in PREMIX 1 EACH IV PRN (23:26)
[2018-06-16] MEDS ORDERED: INSULIN REGULAR DRIP 100 ML IV SCH (23:30)
[2018-06-16 23:52] LABS: ABG Base Excess -22.6 MMOL/L (-2.5-2.5); ABG HCO3 8.6 MMOL/L (20-26); ABG Oxygen Saturation 97.2 % (95-100); ABG TCO2 5.2 MMOL/L (23-27); Allen Test Positive; Pt O2 Delivery Device Room Air
[2018-06-16 23:55] LABS: ABG PCO2 16.5 MM HG (35-48); ABG PH 7.139 (7.35-7.45)
[2018-06-17] MEDS: SODIUM CHLORIDE 0.9% 1,000 ML IV SCH ×2 (00:32→02:41)
[2018-06-17] MEDS: ONDANSETRON 4 MG/2 ML VIAL IV PRN ×4 (00:40→16:11)
[2018-06-17] MEDS: NICOTINE 21 MG/24 HR PATCH TRANSDERM PRN ×2 (00:48→21:26)
[2018-06-17] MEDS: ALPRAZolam 0.25 MG TABLET PO PRN ×4 (00:48→21:27)
[2018-06-17 01:35] LABS: Osmolality,Calculated 296.5 MOS/KG (273-304); Potassium 4.8 MMOL/L (3.5-5.1)
[2018-06-17 02:51] LABS: Calcium 8.1 MG/DL (8.5-10.1)
[2018-06-17] MEDS ORDERED: SODIUM CHLORIDE 0.9% 1,000 ML IV SCH ×2 (04:27→09:30)
[2018-06-17] MEDS ORDERED: DEXTROSE 5% NACL 0.9% 1,000 ML IV SCH ×2 (05:15)
[2018-06-17] MEDS ORDERED: DEXTROSE 5% 1,000 ML IV SCH (05:15)
[2018-06-17] MEDS ORDERED: LORazepam 2 MG/1 ML VIAL IV ONE (06:36)
[2018-06-17 06:50] LABS: Calcium 7.4 MG/DL (8.5-10.1); Potassium 5.5 MMOL/L (3.5-5.1)
[2018-06-17 07:36] LABS: Basophils # 0.1 10*3/uL (0.0-0.2); Basophils % 0.4 % (0.0-0.8); Eosinophils % 0.1 % (0.00-10.9); Hematocrit 35.3 VOL% (35.7-47.0); Lymphocytes # 3.3 10*3/uL (1.4-4.0); Lymphocytes % 15.9 % (21.3-54.2); Mean Corpuscular Hemoglobin 29 PG (27-34); Mean Corpuscular Volume 97.5 FL (87-102); Monocytes # 1.4 10*3/uL (0.11-0.8); Monocytes % 6.5 % (1.7-12.7); Neutrophils % 76.1 % (38.7-73.9); Platelet Count 302 T/CUMM (130-400); Red Cell Distribution Width 18.3 % (9.3-17.3); White Blood Count 20.9 T/CUMM (4-12)
[2018-06-17 07:37] LABS: Hemoglobin 10.6 GM/DL (12.0-16.0); Red Blood Count 3.62 MC/CUMM (3.8-5.5)
[2018-06-17 07:41] LABS: Hypochromasia 1+; Lymphocytes 19 % (20-55); Segmented Neutrophils 74 % (50-85); Total Cells Counted 100
[2018-06-17 07:42] LABS: Macrocytosis 1+
[2018-06-17 07:43] LABS: Polychromasia Slight
[2018-06-17 07:44] LABS: Calcium 7.7 MG/DL (8.5-10.1); Osmolality,Calculated 284.8 MOS/KG (273-304); Potassium 4.3 MMOL/L (3.5-5.1)
[2018-06-17] MEDS ORDERED: LEVOFLOXACIN INJ 750 MG in PREMIX 1 EACH IV SCH (08:30)
[2018-06-17] MEDS ORDERED: INSULIN REGULAR 100 UNIT/ML IV ONE (09:11)
[2018-06-17] MEDS: METOPROLOL TARTRATE 25 MG TABLET PO SCH ×2 (09:37→21:26)
[2018-06-17] MEDS: PANTOPRAZOLE 40 MG TABLET PO SCH ×2 (09:38→21:26)
[2018-06-17] MEDS: PREGABALIN 75 MG CAPSULE PO SCH ×2 (09:38→21:27)
[2018-06-17] MEDS: MORPHINE 4 MG/1 ML VIAL IV PRN ×2 (10:21→16:08)
[2018-06-17] MEDS ORDERED: DEXTROSE 50% 25 GM/50 ML VIAL IV PRN (10:24)
[2018-06-17] MEDS ORDERED: GLUCAGON 1 MG VIAL IM PRN (10:24)
[2018-06-17] MEDS: DEXTROSE 5% NACL 0.9% 1,000 ML IV SCH ×5 (11:12→23:58)
[2018-06-17 12:20] LABS: Calcium 7.3 MG/DL (8.5-10.1); Osmolality,Calculated 283.5 MOS/KG (273-304); Potassium 3.7 MMOL/L (3.5-5.1)
[2018-06-17] MEDS ORDERED: INSULIN GLARGINE HUM REC ANLOG 100 UNIT SQ SCH (13:00)
[2018-06-17] MEDS ORDERED: [UNRECOGNIZED DRUG - OTHER] SQ SCH (13:00)
[2018-06-17] MEDS: INSULIN ASPART PROTAMINE/ASPART 70/30 100 UNIT/ML SUBCUT SCH (13:28)
[2018-06-17 15:12] LABS: Calcium 7.4 MG/DL (8.5-10.1); Osmolality,Calculated 282.5 MOS/KG (273-304); Potassium 3.8 MMOL/L (3.5-5.1)
[2018-06-17] MEDS: INSULIN REGULAR 100 UNIT/ML SUBCUT SCH ×3 (16:07→23:28)
[2018-06-17] MEDS ORDERED: SODIUM CHLORIDE 0.45% 1,000 ML IV SCH (16:27)
[2018-06-17 20:33] LABS: Calcium 7.3 MG/DL (8.5-10.1); Osmolality,Calculated 281.5 MOS/KG (273-304); Potassium 3.5 MMOL/L (3.5-5.1)
[2018-06-17] MEDS: POTASSIUM CHLORIDE 20 MEQ TABLET PO PRN ×2 (21:26→23:28)
[2018-06-18] MEDS: MORPHINE 4 MG/1 ML VIAL IV PRN ×2 (01:20→07:51)
[2018-06-18] MEDS: ONDANSETRON 4 MG/2 ML VIAL IV PRN ×3 (01:23→12:17)
[2018-06-18] MEDS: INSULIN REGULAR 100 UNIT/ML SUBCUT SCH ×2 (04:46→07:50)
[2018-06-18] MEDS: DEXTROSE 5% NACL 0.9% 1,000 ML IV SCH (04:53)
[2018-06-18 05:52] LABS: Basophils # 0.1 10*3/uL (0.0-0.2); Basophils % 0.5 % (0.0-0.8); Eosinophils # 0.2 10*3/uL (0.0-0.87); Eosinophils % 1.7 % (0.00-10.9); Hematocrit 30.9 VOL% (35.7-47.0); Hemoglobin 9.4 GM/DL (12.0-16.0); Immature Granulocytes % 0.4 %; Immature Granulocytes Absolute 0.04 #; Lymphocytes # 2.6 10*3/uL (1.4-4.0); Mean Corpuscular HGB Conc 30.4 GM/DL (32-36); Mean Corpuscular Hemoglobin 28 PG (27-34); Mean Corpuscular Volume 93.4 FL (87-102); Mean Platelet Volume 12.4 FL (9.6-12.0); Monocytes # 0.8 10*3/uL (0.11-0.8); Monocytes % 7.5 % (1.7-12.7); Neutrophils # 6.7 10*3/uL (1.4-7.4); Neutrophils % 64.9 % (38.7-73.9); Platelet Count 237 T/CUMM (130-400); Red Blood Count 3.31 MC/CUMM (3.8-5.5); Red Cell Distribution Width 18.6 % (9.3-17.3); White Blood Count 10.3 T/CUMM (4-12)
[2018-06-18 06:04] LABS: Calcium 7.5 MG/DL (8.5-10.1); Osmolality,Calculated 281.5 MOS/KG (273-304); Potassium 4.9 MMOL/L (3.5-5.1)
[2018-06-18] MEDS: INSULIN ASPART PROTAMINE/ASPART 70/30 100 UNIT/ML SUBCUT SCH (07:50)
[2018-06-18] MEDS: ALPRAZolam 0.25 MG TABLET PO PRN (07:50)
[2018-06-18] MEDS ORDERED: LEVOFLOXACIN 500 MG TABLET PO SCH (09:00)
[2018-06-18] MEDS: METOPROLOL TARTRATE 25 MG TABLET PO SCH (09:07)
[2018-06-18] MEDS: PANTOPRAZOLE 40 MG TABLET PO SCH (09:08)
[2018-06-18] MEDS: PREGABALIN 75 MG CAPSULE PO SCH (09:09)
[2018-06-18] MEDS ORDERED: INSULIN REGULAR 100 UNIT/ML SUBCUT SCH (11:30)
[2018-06-18] MEDS ORDERED: metroNIDAZOLE INJ 500 MG in PREMIX 1 EACH IV ONE (11:48)
[2018-06-18] MEDS ORDERED: LEVOFLOXACIN INJ 750 MG in PREMIX 1 EACH IV ONE (11:48)
[2018-06-18] MEDS ORDERED: CLINDAMYCIN 300 MG CAPSULE PO SCH (12:00)
[2018-06-18] MEDS ORDERED: MAGNESIUM SULF RIDER 4 GM in PREMIX 1 EACH IV ONE (12:00)
[2018-06-18] MEDS ORDERED: INSULIN ASPART PROTAMINE/ASPART 70/30 100 UNIT/ML SUBCUT SCH (14:21)
[2018-06-18 15:49] VITALS: BP 138/80
== END 2018-06-18 18:25 | disposition left against medical advice (07) | DRG 638 ==
LOC: EDBD → EDUNIT# → N.ED 21:13 → N.EDINP 23:26 → SUATTDRO 23:26 → N.ICU 06-17 00:09 → N.4E 06-18 11:07
PROVIDERS: ADMIT Internal Medicine; ATTEND Internal Medicine Geriatric Medicine

== ENCOUNTER 2018-08-06 03:02 | Inpatient (IN) ==
[2018-08-06] MEDS ORDERED: SODIUM CHLORIDE 0.9% 1,000 ML IV STA ×2 (03:07→03:09)
[2018-08-06] MEDS ORDERED: INSULIN REGULAR 100 UNIT/ML IV STA (03:10)
[2018-08-06] MEDS ORDERED: ONDANSETRON 4 MG/2 ML VIAL IV STA (03:32)
[2018-08-06] MEDS ORDERED: INSULIN REGULAR DRIP 100 ML IV PRN ×2 (03:37→03:51)
[2018-08-06 03:44] LABS: Basophils # 0.1 10*3/uL (0.0-0.2); Eosinophils # 0.1 10*3/uL (0.0-0.87); Eosinophils % 0.7 % (0.00-10.9); Hematocrit 42.9 VOL% (35.7-47.0); Hemoglobin 12.8 GM/DL (12.0-16.0); Immature Granulocytes % 0.4 %; Immature Granulocytes Absolute 0.04 #; Lymphocytes # 1.3 10*3/uL (1.4-4.0); Lymphocytes % 14.6 % (21.3-54.2); Mean Corpuscular HGB Conc 29.8 GM/DL (32-36); Mean Corpuscular Hemoglobin 30 PG (27-34); Mean Platelet Volume 12.1 FL (9.6-12.0); Monocytes # 0.5 10*3/uL (0.11-0.8); Monocytes % 5.4 % (1.7-12.7); Neutrophils % 77.9 % (38.7-73.9); Platelet Count 277 T/CUMM (130-400); Red Blood Count 4.29 MC/CUMM (3.8-5.5); Red Cell Distribution Width 16.8 % (9.3-17.3); VBG Base Excess -19.5 MEQ/L (0-4); VBG HCO3 10.6 MEQ/L (24-28); VBG Oxygen Saturation 96.7 %; VBG PCO2 24.2 MMHG (41-51); VBG PH 7.156
[2018-08-06 04:01] LABS: Albumin 3.5 G/DL (3.4-5.0); Bilirubin,Total 0.5 MG/DL (0.2-1.0); Calcium 9.7 MG/DL (8.5-10.1); Osmolality,Calculated 290.8 MOS/KG (273-304); Potassium 5.2 MMOL/L (3.5-5.1); Total Protein 8.6 G/DL (6.4-8.3)
[2018-08-06 04:20] LABS: Apearance,Urine Slightly Hazy (Clear); Bacteria,Urine Few /HPF (Few); Bilirubin,Urine Negative (Negative); Blood, Urine Small mg/dL (Negative); Glucose,Urine (UA) >=500 mg/dL (Negative); Hyaline Casts,Urine 4 /LPF (0-3); Ketones,Urine 80 mg/dL (Negative); Mucus,Urine Occasional /LPF (Occasional); Nitrite,Urine Negative (Negative); Protein,Urine 30 MG/DL; Squamous Epithelial Cell,Urine Occasional /HPF (0-10); Urine Color Yellow (Yellow); Urine Specific Gravity 1.017 (1.001-1.035); Urine Urobilinogen < 2.0 EU/DL (0.2-1.0); WBC,Urine 1 /HPF (0-6)
[2018-08-06] MEDS ORDERED: DEXTROSE 50% 25 GM/50 ML SYRINGE IV PRN (04:33)
[2018-08-06] MEDS ORDERED: SODIUM PHOSPHATE IV PRN (04:33)
[2018-08-06] MEDS ORDERED: SODIUM CHLORIDE 0.9% IV PRN (04:33)
[2018-08-06] MEDS ORDERED: MAGNESIUM SULF RIDER 4 GM in PREMIX 1 EACH IV PRN (04:33)
[2018-08-06] MEDS ORDERED: DEXTROSE 50% 25 GM/50 ML VIAL IV PRN (04:33)
[2018-08-06] MEDS ORDERED: SODIUM BICARB INJ 100 MEQ in STERILE WATER INJ 400 ML IV PRN (04:33)
[2018-08-06] MEDS ORDERED: MAGNESIUM SULF RIDER 2 GM in PREMIX 1 EACH IV PRN (04:33)
[2018-08-06] MEDS ORDERED: SODIUM CHLORIDE 0.9% 1,000 ML IV ONE (04:33)
[2018-08-06] MEDS ORDERED: POTASSIUM CHLORIDE RIDER 10 MEQ in PREMIX 1 EACH IV PRN (04:33)
[2018-08-06] MEDS ORDERED: ONDANSETRON 4 MG/2 ML VIAL IV PRN (04:40)
[2018-08-06] MEDS ORDERED: ALBUTEROL 2.5 MG/3 ML NEB RESP TX PRN (04:40)
[2018-08-06] MEDS ORDERED: ZALEPLON 5 MG CAPSULE PO PRN (04:40)
[2018-08-06] MEDS ORDERED: ENOXAPARIN 40 MG/0.4 ML SYRINGE SUBCUT SCH (05:00)
[2018-08-06] MEDS: PROMETHAZINE 25 MG/1 ML VIAL IM PRN ×2 (05:23→19:32)
[2018-08-06] MEDS: SODIUM CHLORIDE 0.9% 1,000 ML IV SCH ×2 (08:01→09:51)
[2018-08-06 08:23] LABS: Calcium 8.3 MG/DL (8.5-10.1); Potassium 5.5 MMOL/L (3.5-5.1)
[2018-08-06] MEDS ORDERED: PANTOPRAZOLE 40 MG TABLET PO SCH (09:00)
[2018-08-06] MEDS ORDERED: SODIUM CHLORIDE 0.9% 1,000 ML IV SCH (09:34)
[2018-08-06] MEDS: PREGABALIN 75 MG CAPSULE PO SCH ×2 (10:28→21:24)
[2018-08-06] MEDS ORDERED: INSULIN REGULAR 100 UNIT/ML IV PRN (11:15)
[2018-08-06] MEDS: ACETAMINOPHEN 325 MG TABLET PO PRN ×2 (13:05→21:24)
[2018-08-06 13:09] LABS: Calcium 7.6 MG/DL (8.5-10.1); Osmolality,Calculated 284.5 MOS/KG (273-304); Potassium 4.3 MMOL/L (3.5-5.1)
[2018-08-06] MEDS ORDERED: DEXTROSE 5% NACL 0.9% 1,000 ML IV SCH (13:30)
[2018-08-06] MEDS ORDERED: DEXT 5% NACL 0.45% KCL 20 MEQ 20 MEQ/1,000 ML BAG IV SCH (16:30)
[2018-08-06 17:08] LABS: Calcium 7.8 MG/DL (8.5-10.1); Potassium 5.2 MMOL/L (3.5-5.1)
[2018-08-06] MEDS ORDERED: DEXTROSE 5% NACL 0.45% 1,000 ML IV PRN (17:29)
[2018-08-06] MEDS ORDERED: SODIUM CHLORIDE 0.45% 1,000 ML IV SCH (21:34)
[2018-08-06 22:05] LABS: Calcium 7.4 MG/DL (8.5-10.1); Osmolality,Calculated 283.3 MOS/KG (273-304); Potassium 3.5 MMOL/L (3.5-5.1)
[2018-08-06 23:46] VITALS: BP 124/82
== END 2018-08-07 00:05 | disposition left against medical advice (07) | DRG 639 ==
LOC: EDUNIT# → EDBD → N.ED 03:02 → N.EDINP 04:33 → N.ICU 05:32
PROVIDERS: ADMIT Internal Medicine; ATTEND Internal Medicine

== ENCOUNTER 2018-08-16 10:37 | Inpatient (IN) ==
[2018-08-16] MEDS ORDERED: MORPHINE 4 MG/1 ML VIAL IV STA ×2 (10:56→14:38)
[2018-08-16] MEDS ORDERED: SODIUM CHLORIDE 0.9% 1,000 ML IV STA ×2 (10:56→11:56)
[2018-08-16 11:20] LABS: ABG Base Excess -21.8 MMOL/L (-2.5-2.5); ABG HCO3 3.4 MMOL/L (20-26); ABG Oxygen Saturation 97.5 % (95-100); ABG PH 7.228 (7.35-7.45); ABG PO2 120.9 MM HG (80-95); ABG TCO2 3.7 MMOL/L (23-27)
[2018-08-16 11:21] LABS: ABG PCO2 8.4 MM HG (35-48)
[2018-08-16] MEDS ORDERED: INSULIN REGULAR 100 UNIT/ML IV STA (11:26)
[2018-08-16 11:38] LABS: Apearance,Urine CLEAR (Clear); Bilirubin,Urine Negative (Negative); Blood, Urine Moderate mg/dL (Negative); Glucose,Urine (UA) >=500 mg/dL (Negative); Ketones,Urine 80 mg/dL (Negative); Mucus,Urine Occasional /LPF (Occasional); Nitrite,Urine Negative (Negative); Protein,Urine 30 MG/DL; RBC,Urine 3 /HPF (0-4); Squamous Epithelial Cell,Urine Occasional /HPF (0-10); Urine Color Straw (Yellow); Urine Specific Gravity 1.012 (1.001-1.035); Urine Urobilinogen < 2.0 EU/DL (0.2-1.0); WBC,Urine <1 /HPF (0-6)
[2018-08-16 11:48] LABS: Barbiturates Screen,Urine Negative (Negative); Benzodiazepines Screen,Urine Negative (Negative); Cannabinoid Screen,Urine Negative (Negative); Opiate Screen,Urine Positive (Negative); Phencyclidine Screen,Urine Negative (Negative)
[2018-08-16 11:56] LABS: Basophils # 0.2 10*3/uL (0.0-0.2); Basophils % 0.9 % (0.0-0.8); Eosinophils # 0.3 10*3/uL (0.0-0.87); Hematocrit 31.9 VOL% (35.7-47.0); Hemoglobin 9.8 GM/DL (12.0-16.0); Immature Granulocytes % 7.1 %; Immature Granulocytes Absolute 1.21 #; Lymphocytes # 2.2 10*3/uL (1.4-4.0); Lymphocytes % 13.2 % (21.3-54.2); Mean Corpuscular HGB Conc 30.7 GM/DL (32-36); Mean Corpuscular Hemoglobin 30 PG (27-34); Mean Platelet Volume 12.1 FL (9.6-12.0); Monocytes # 1.1 10*3/uL (0.11-0.8); Monocytes % 6.6 % (1.7-12.7); NRBC # 0.15 10*3/uL; Neutrophils # 11.9 10*3/uL (1.4-7.4); Neutrophils % 70.2 % (38.7-73.9); Platelet Count 296 T/CUMM (130-400); Red Blood Count 3.29 MC/CUMM (3.8-5.5); Red Cell Distribution Width 18.1 % (9.3-17.3)
[2018-08-16] MEDS ORDERED: SODIUM BICARBONATE 50 MEQ/50 ML SYRINGE IV STA (11:56)
[2018-08-16] MEDS ORDERED: PROMETHAZINE 25 MG/1 ML VIAL IM PRN (11:57)
[2018-08-16] MEDS ORDERED: ALBUTEROL 2.5 MG/3 ML NEB RESP TX PRN (11:57)
[2018-08-16] MEDS ORDERED: MAGNESIUM SULF RIDER 2 GM in PREMIX 1 EACH IV PRN (11:59)
[2018-08-16] MEDS ORDERED: SODIUM CHLORIDE 0.9% IV PRN (11:59)
[2018-08-16] MEDS ORDERED: SODIUM PHOSPHATE IV PRN (11:59)
[2018-08-16] MEDS ORDERED: MAGNESIUM SULF RIDER 4 GM in PREMIX 1 EACH IV PRN (11:59)
[2018-08-16] MEDS ORDERED: DEXTROSE 50% 25 GM/50 ML VIAL IV PRN ×2 (11:59)
[2018-08-16] MEDS ORDERED: SODIUM CHLORIDE 0.9% 1,000 ML IV ONE (11:59)
[2018-08-16] MEDS ORDERED: SODIUM BICARB INJ 100 MEQ in STERILE WATER INJ 400 ML IV PRN (11:59)
[2018-08-16] MEDS ORDERED: INSULIN REGULAR DRIP 100 ML IV SCH (12:00)
[2018-08-16] MEDS ORDERED: PANTOPRAZOLE 40 MG VIAL IV SCH (12:00)
[2018-08-16 12:20] LABS: Bilirubin,Total 0.4 MG/DL (0.2-1.0); Calcium 8.4 MG/DL (8.5-10.1); Potassium 4.7 MMOL/L (3.5-5.1); Total Protein 6.4 G/DL (6.4-8.3)
[2018-08-16 12:30] LABS: Anisocytosis 1+; Band Neutrophils 7 % (0-10); Burr Cells Slight; Eosinophils 2 % (0-10); Lymphocytes 7 % (20-55); Macrocytosis 1+; Metamyelocytes 6 %; Nucleated Red Blood Cells 2 (0-5); Platelet Estimate Normal; Segmented Neutrophils 68 % (50-85); Target Cells Slight; Total Cells Counted 100
[2018-08-16 12:31] LABS: Poikilocytosis 1+; Schistocytes Slight
[2018-08-16] MEDS ORDERED: SODIUM BICARB INJ 100 MEQ in STERILE WATER INJ 400 ML IV ONE (12:31)
[2018-08-16] MEDS ORDERED: INSULIN GLARGINE 100 UNIT/ML SUBCUT STA (12:41)
[2018-08-16 12:42] LABS: Cholesterol 130 MG/DL (50-200); HDL Cholesterol < 10 MG/DL (40-60); Thyroid Stimulating Hormone 0.179 uIU/ml (0.358-3.74); Triglycerides 307 MG/DL (2-150); VLDL CHOLESTEROL 61.4 MG/DL
[2018-08-16] MEDS ORDERED: SODIUM CHLORIDE 0.9% 1,000 ML IV SCH ×2 (13:00→17:00)
[2018-08-16] MEDS: INSULIN REGULAR 100 UNIT/ML SUBCUT SCH ×6 (13:40→22:43)
[2018-08-16 13:53] LABS: Free T4 (Free Thyroxine) 1.49 NG/DL (0.76-1.46)
[2018-08-16] MEDS ORDERED: INSULIN REGULAR 100 UNIT/ML SUBCUT SCH (14:00)
[2018-08-16 16:31] LABS: Calcium 8.5 MG/DL (8.5-10.1); Potassium 4.7 MMOL/L (3.5-5.1)
[2018-08-16 17:45] LABS: ABG Base Excess -6.1 MMOL/L (-2.5-2.5); ABG HCO3 19.3 MMOL/L (20-26); ABG Oxygen Saturation 95.5 % (95-100); ABG PCO2 23.5 MM HG (35-48); ABG PH 7.462 (7.35-7.45); ABG PO2 75.1 MM HG (80-95); ABG TCO2 15.8 MMOL/L (23-27); Pt O2 Delivery Device BIPAP
[2018-08-16 18:35] LABS: Pt O2 Delivery Device BIPAP
[2018-08-16 18:36] LABS: ABG Base Excess -3.8 MMOL/L (-2.5-2.5); ABG HCO3 21.2 MMOL/L (20-26); ABG PCO2 25.4 MM HG (35-48); ABG PH 7.481 (7.35-7.45); ABG PO2 95.7 MM HG (80-95); ABG TCO2 17.8 MMOL/L (23-27)
[2018-08-16 19:21] LABS: Alanine Aminotransferase 13 U/L (13-56); Albumin 1.6 G/DL (3.4-5.0); Alkaline Phosphatase 130 U/L (45-117); Aspartate Amino Transferase 11 U/L (0-37); Bilirubin,Total < 0.39 MG/DL (0.2-1.0); Blood Urea Nitrogen 35 MG/DL (7-18); Calcium 8.1 MG/DL (8.5-10.1); Glucose 251 MG/DL (74-106); Sodium 143 MMOL/L (136-145); Total Protein 6.1 G/DL (6.4-8.3)
[2018-08-16] MEDS ORDERED: POTASSIUM CHLORIDE RIDER 20 MEQ in PREMIX 1 EACH IV PRN (20:06)
[2018-08-16] MEDS: POTASSIUM CHLORIDE RIDER 10 MEQ in PREMIX 1 EACH IV PRN ×2 (20:25→21:30)
[2018-08-16] MEDS: SODIUM CHLOR 0.45% KCL 20 MEQ 20 MEQ/1,000 ML BAG IV SCH (20:50)
[2018-08-16 21:03] LABS: Calcium 7.9 MG/DL (8.5-10.1)
[2018-08-16] MEDS: MORPHINE 4 MG/1 ML VIAL IV PRN (21:14)
[2018-08-16] MEDS: ONDANSETRON 4 MG/2 ML VIAL IV PRN (21:14)
[2018-08-16] MEDS: ENOXAPARIN 40 MG/0.4 ML SYRINGE SUBCUT SCH (21:14)
[2018-08-17 00:44] LABS: Calcium 7.8 MG/DL (8.5-10.1); Osmolality,Calculated 298.6 MOS/KG (273-304); Potassium 3.3 MMOL/L (3.5-5.1)
[2018-08-17] MEDS: INSULIN REGULAR 100 UNIT/ML SUBCUT SCH ×7 (00:54→21:19)
[2018-08-17] MEDS: ONDANSETRON 4 MG/2 ML VIAL IV PRN ×3 (01:55→11:21)
[2018-08-17] MEDS: MORPHINE 4 MG/1 ML VIAL IV PRN ×4 (01:55→14:19)
[2018-08-17 03:27] LABS: Basophils # 0.1 10*3/uL (0.0-0.2); Basophils % 0.4 % (0.0-0.8); Eosinophils # 0.3 10*3/uL (0.0-0.87); Eosinophils % 1.7 % (0.00-10.9); Hematocrit 21.7 VOL% (35.7-47.0); Hemoglobin 7.1 GM/DL (12.0-16.0); Immature Granulocytes % 1.7 %; Immature Granulocytes Absolute 0.33 #; Lymphocytes # 3.8 10*3/uL (1.4-4.0); Lymphocytes % 19.9 % (21.3-54.2); Mean Corpuscular HGB Conc 32.7 GM/DL (32-36); Mean Corpuscular Hemoglobin 29 PG (27-34); Mean Corpuscular Volume 89.3 FL (87-102); Mean Platelet Volume 11.7 FL (9.6-12.0); Monocytes # 1.9 10*3/uL (0.11-0.8); Monocytes % 9.8 % (1.7-12.7); Neutrophils # 12.6 10*3/uL (1.4-7.4); Neutrophils % 66.5 % (38.7-73.9); Platelet Count 346 T/CUMM (130-400); Red Blood Count 2.43 MC/CUMM (3.8-5.5); Red Cell Distribution Width 17.1 % (9.3-17.3)
[2018-08-17 03:40] LABS: Calcium 7.8 MG/DL (8.5-10.1); Osmolality,Calculated 295.6 MOS/KG (273-304); Potassium 3.3 MMOL/L (3.5-5.1)
[2018-08-17] MEDS ORDERED: NITROGLYCERIN SL 0.4 MG TABLET SL ONE (03:46)
[2018-08-17] MEDS: NITROGLYCERIN SL 0.4 MG TABLET SL PRN ×2 (03:48→03:53)
[2018-08-17 03:57] LABS: ABG Base Excess 0.6 MMOL/L (-2.5-2.5); ABG HCO3 24.9 MMOL/L (20-26); ABG Oxygen Saturation 92.2 % (95-100); ABG PCO2 39.1 MM HG (35-48); ABG PH 7.415 (7.35-7.45); ABG PO2 65.9 MM HG (80-95); Allen Test Positive; Pt O2 Delivery Device BIPAP
[2018-08-17] MEDS ORDERED: SODIUM CHLORIDE 0.45% 1,000 ML IV SCH (05:00)
[2018-08-17] MEDS: SODIUM CHLOR 0.45% KCL 20 MEQ 20 MEQ/1,000 ML BAG IV SCH ×2 (06:20→14:56)
[2018-08-17] MEDS: INSULIN ASPART PROTAMINE/ASPART 70/30 100 UNIT/ML SUBCUT SCH ×2 (07:45→15:54)
[2018-08-17] MEDS: ACETAMINOPHEN 325 MG TABLET PO PRN ×2 (08:21→12:45)
[2018-08-17 08:28] LABS: Calcium 7.7 MG/DL (8.5-10.1); Osmolality,Calculated 295.7 MOS/KG (273-304); Potassium 3.4 MMOL/L (3.5-5.1)
[2018-08-17] MEDS: PANTOPRAZOLE 40 MG TABLET PO SCH (10:22)
[2018-08-17] MEDS ORDERED: INSULIN REGULAR 100 UNIT/ML SUBCUT SCH (12:00)
[2018-08-17] MEDS: ENOXAPARIN 40 MG/0.4 ML SYRINGE SUBCUT SCH (21:20)
[2018-08-17] MEDS ORDERED: oxyCODONE/ACETAMINOPHEN 5-325 MG TABLET PO PRN (23:00)
[2018-08-18] MEDS: ONDANSETRON 4 MG/2 ML VIAL IV PRN (08:53)
[2018-08-18] MEDS: MORPHINE 4 MG/1 ML VIAL IV PRN (08:54)
[2018-08-18] MEDS: INSULIN ASPART PROTAMINE/ASPART 70/30 100 UNIT/ML SUBCUT SCH ×2 (08:55→17:26)
[2018-08-18] MEDS: INSULIN REGULAR 100 UNIT/ML SUBCUT SCH ×4 (08:56→20:39)
[2018-08-18] MEDS: PANTOPRAZOLE 40 MG TABLET PO SCH (08:57)
[2018-08-18] MEDS ORDERED: FUROSEMIDE 40 MG/4 ML VIAL IV ONE ×2 (09:33→09:48)
[2018-08-18 09:46] LABS: Alanine Aminotransferase 13 U/L (13-56); Alkaline Phosphatase 126 U/L (45-117); Aspartate Amino Transferase 21 U/L (0-37); Bilirubin,Total < 0.39 MG/DL (0.2-1.0); Blood Urea Nitrogen 24 MG/DL (7-18); Glucose 292 MG/DL (74-106); Potassium 3.8 MMOL/L (3.5-5.1); Sodium 136 MMOL/L (136-145); Total Protein 6.9 G/DL (6.4-8.3)
[2018-08-18] MEDS ORDERED: SODIUM CHLORIDE 0.9% 1,000 ML IV PRN (09:48)
[2018-08-18 09:50] LABS: Basophils # 0.1 10*3/uL (0.0-0.2); Basophils % 0.4 % (0.0-0.8); Eosinophils # 0.4 10*3/uL (0.0-0.87); Eosinophils % 3.6 % (0.00-10.9); Hematocrit 25.1 VOL% (35.7-47.0); Hemoglobin 7.8 GM/DL (12.0-16.0); Immature Granulocytes % 1.9 %; Immature Granulocytes Absolute 0.23 #; Lymphocytes # 2.3 10*3/uL (1.4-4.0); Lymphocytes % 18.7 % (21.3-54.2); Mean Corpuscular HGB Conc 31.1 GM/DL (32-36); Mean Corpuscular Hemoglobin 29 PG (27-34); Mean Corpuscular Volume 94.4 FL (87-102); Mean Platelet Volume 11.5 FL (9.6-12.0); Monocytes # 0.5 10*3/uL (0.11-0.8); Monocytes % 3.9 % (1.7-12.7); NRBC # 0.02 10*3/uL; Neutrophils # 8.8 10*3/uL (1.4-7.4); Neutrophils % 71.5 % (38.7-73.9); Platelet Count 358 T/CUMM (130-400); Red Blood Count 2.66 MC/CUMM (3.8-5.5); Red Cell Distribution Width 17.9 % (9.3-17.3); White Blood Count 12.3 T/CUMM (4-12)
[2018-08-18] MEDS ORDERED: INSULIN ASPART PROTAMINE/ASPART 70/30 100 UNIT/ML SUBCUT SCH (10:06)
[2018-08-18] MEDS ORDERED: CYCLOBENZAPRINE 10 MG TABLET PO PRN (10:07)
[2018-08-18] MEDS ORDERED: SODIUM BICARB INJ 100 MEQ in STERILE WATER INJ 400 ML IV ONE (10:10)
[2018-08-18] MEDS ORDERED: POTASSIUM CHLORIDE 20 MEQ TABLET PO ONE (10:10)
[2018-08-18 10:47] LABS: % Iron Saturation 11.8 % (18-50); Ferritin 262.8 ng/ml (8-252)
[2018-08-18] MEDS: CITALOPRAM 20 MG TABLET PO SCH (11:15)
[2018-08-18] MEDS: oxyCODONE/ACETAMINOPHEN 5-325 MG TABLET PO PRN ×2 (11:16→23:26)
[2018-08-18] MEDS: LIDOCAINE 5% PATCH TRANSDERM SCH (11:17)
[2018-08-18] MEDS: DULoxetine 20 MG CAPSULE PO SCH (11:17)
[2018-08-18] MEDS: SODIUM CHLOR 0.45% KCL 20 MEQ 20 MEQ/1,000 ML BAG IV SCH (11:26)
[2018-08-18] MEDS ORDERED: INSULIN LISPRO 100 UNIT/ML SUBCUT SCH (12:00)
[2018-08-18] MEDS: METOCLOPRAMIDE 10 MG/2 ML VIAL IV SCH ×3 (12:48→23:24)
[2018-08-18] MEDS: METHOCARBAMOL 500 MG TABLET PO SCH ×2 (15:30→20:18)
[2018-08-18] MEDS: INSULIN LISPRO 100 UNIT/ML SUBCUT SCH (17:27)
[2018-08-18 18:07] LABS: Calcium 7.9 MG/DL (8.5-10.1); Osmolality,Calculated 274.1 MOS/KG (273-304); Potassium 3.8 MMOL/L (3.5-5.1)
[2018-08-18] MEDS: ENOXAPARIN 40 MG/0.4 ML SYRINGE SUBCUT SCH (20:18)
[2018-08-18] MEDS ORDERED: TEMAZEPAM 15 MG CAPSULE PO SCH (21:00)
[2018-08-19 04:39] LABS: Basophils # 0.1 10*3/uL (0.0-0.2); Basophils % 0.5 % (0.0-0.8); Eosinophils # 0.4 10*3/uL (0.0-0.87); Eosinophils % 3.5 % (0.00-10.9); Hematocrit 28.8 VOL% (35.7-47.0); Hemoglobin 9.4 GM/DL (12.0-16.0); Immature Granulocytes % 1.5 %; Immature Granulocytes Absolute 0.18 #; Lymphocytes # 2.8 10*3/uL (1.4-4.0); Mean Corpuscular HGB Conc 32.6 GM/DL (32-36); Mean Corpuscular Hemoglobin 29 PG (27-34); Monocytes % 8.3 % (1.7-12.7); NRBC # 0.04 10*3/uL; Neutrophils # 7.8 10*3/uL (1.4-7.4); Neutrophils % 63.2 % (38.7-73.9); Platelet Count 326 T/CUMM (130-400); Red Cell Distribution Width 16.4 % (9.3-17.3); White Blood Count 12.4 T/CUMM (4-12)
[2018-08-19 04:59] LABS: Calcium 7.7 MG/DL (8.5-10.1); Osmolality,Calculated 274.8 MOS/KG (273-304); Potassium 3.1 MMOL/L (3.5-5.1)
[2018-08-19 05:06] LABS: Hypochromasia 1+; Platelet Estimate Normal; Polychromasia Few; Target Cells 2+
[2018-08-19] MEDS: METOCLOPRAMIDE 10 MG/2 ML VIAL IV SCH ×2 (05:08→12:02)
[2018-08-19] MEDS: INSULIN REGULAR 100 UNIT/ML SUBCUT SCH ×2 (09:05→11:51)
[2018-08-19] MEDS: INSULIN LISPRO 100 UNIT/ML SUBCUT SCH ×2 (09:08→11:51)
[2018-08-19] MEDS: oxyCODONE/ACETAMINOPHEN 5-325 MG TABLET PO PRN (09:08)
[2018-08-19] MEDS: CITALOPRAM 20 MG TABLET PO SCH (09:08)
[2018-08-19] MEDS: DULoxetine 20 MG CAPSULE PO SCH (09:08)
[2018-08-19] MEDS: METHOCARBAMOL 500 MG TABLET PO SCH (09:08)
[2018-08-19] MEDS: PANTOPRAZOLE 40 MG TABLET PO SCH (09:08)
[2018-08-19] MEDS: INSULIN ASPART PROTAMINE/ASPART 70/30 100 UNIT/ML SUBCUT SCH (09:09)
[2018-08-19] MEDS: LIDOCAINE 5% PATCH TRANSDERM SCH (09:09)
[2018-08-19] MEDS ORDERED: POTASSIUM CHLORIDE 20 MEQ TABLET PO PRN (09:32)
[2018-08-19] MEDS ORDERED: FUROSEMIDE 20 MG/2 ML VIAL IV ONE (09:34)
[2018-08-19 12:38] VITALS: BP 176/103
[2018-08-19 13:51] LABS: Folate 9.4 NG/ML (5.4-24.0)
== END 2018-08-19 15:43 | disposition home or self-care (01) | DRG 637 ==
LOC: EDUNIT# → EDBD → N.ED 10:37 → SUATTDRO 11:52 → N.EDINP 11:52 → N.CC 17:52 → N.4E 08-17 16:56
PROVIDERS: ADMIT Internal Medicine; ATTEND Phlebology

== ENCOUNTER 2018-08-21 20:52 | Inpatient (IN) ==
[2018-08-21] MEDS ORDERED: ONDANSETRON 4 MG/2 ML VIAL IV STA (21:09)
[2018-08-21] MEDS ORDERED: SODIUM CHLORIDE 0.9% 1,000 ML IV STA (21:09)
[2018-08-21] MEDS ORDERED: INSULIN REGULAR 100 UNIT/ML SUBCUT STA (21:09)
[2018-08-21] MEDS ORDERED: METOCLOPRAMIDE 10 MG/2 ML VIAL IV STA (21:09)
[2018-08-21] MEDS ORDERED: PANTOPRAZOLE 40 MG VIAL IV STA (21:09)
[2018-08-21] MEDS ORDERED: LEVOFLOXACIN INJ 750 MG in PREMIX 1 EACH IV STA (21:14)
[2018-08-21] MEDS ORDERED: VANCOMYCIN INJ 1,000 MG in SODIUM CHLORIDE 0.9% 250 ML IV STA (21:21)
[2018-08-21] MEDS ORDERED: KETOROLAC 30 MG/1 ML VIAL IV STA (21:28)
[2018-08-21] MEDS ORDERED: FUROSEMIDE 40 MG/4 ML VIAL IV STA (21:31)
[2018-08-21] MEDS ORDERED: ALBUTEROL/IPRATROPIUM 3 ML NEB RESP TX STA (21:31)
[2018-08-21 21:39] LABS: Basophils # 0.1 10*3/uL (0.0-0.2); Basophils % 0.3 % (0.0-0.8); Eosinophils # 0.3 10*3/uL (0.0-0.87); Eosinophils % 1.6 % (0.00-10.9); Hematocrit 30.9 VOL% (35.7-47.0); Immature Granulocytes % 0.7 %; Immature Granulocytes Absolute 0.13 #; Lymphocytes # 1.7 10*3/uL (1.4-4.0); Lymphocytes % 9.1 % (21.3-54.2); Mean Corpuscular HGB Conc 32.4 GM/DL (32-36); Mean Corpuscular Hemoglobin 30 PG (27-34); Mean Corpuscular Volume 92.2 FL (87-102); Monocytes # 0.9 10*3/uL (0.11-0.8); Monocytes % 4.8 % (1.7-12.7); NRBC # 0.02 10*3/uL; Neutrophils # 15.5 10*3/uL (1.4-7.4); Neutrophils % 83.5 % (38.7-73.9); Platelet Count 306 T/CUMM (130-400); Red Blood Count 3.35 MC/CUMM (3.8-5.5); Red Cell Distribution Width 17.3 % (9.3-17.3); White Blood Count 18.5 T/CUMM (4-12)
[2018-08-21 21:42] LABS: Apearance,Urine CLEAR (Clear); Bilirubin,Urine Negative (Negative); Blood, Urine Small mg/dL (Negative); Glucose,Urine (UA) >=500 mg/dL (Negative); Ketones,Urine Negative (Negative); Nitrite,Urine Negative (Negative); Protein,Urine Negative; RBC,Urine 1 /HPF (0-4); Squamous Epithelial Cell,Urine Occasional /HPF (0-10); Urine Color Straw (Yellow); Urine Specific Gravity 1.012 (1.001-1.035); Urine Urobilinogen < 2.0 EU/DL (0.2-1.0); WBC,Urine 2 /HPF (0-6)
[2018-08-21 21:50] LABS: PT Patient Result 10.5 SECS; Partial Thromboplastin Time 23.9 SECS (0-40)
[2018-08-21] MEDS ORDERED: MORPHINE 4 MG/1 ML VIAL ONE (22:05)
[2018-08-21] MEDS ORDERED: NITROGLYCERIN 2% OINT 1 INCH/GM PACK TOP ONE (22:06)
[2018-08-21 22:09] LABS: Alanine Aminotransferase 58 U/L (13-56); Albumin 2.2 G/DL (3.4-5.0); Alkaline Phosphatase 210 U/L (45-117); Aspartate Amino Transferase 120 U/L (0-37); Blood Urea Nitrogen 16 MG/DL (7-18); Calcium 8.2 MG/DL (8.5-10.1); Potassium 3.8 MMOL/L (3.5-5.1); Sodium 136 MMOL/L (136-145); Total Protein 7.2 G/DL (6.4-8.3); Troponin I < 0.015 NG/ML (0.00-0.045)
[2018-08-21] MEDS ORDERED: MORPHINE 4 MG/1 ML VIAL IV STA (22:10)
[2018-08-21] MEDS ORDERED: hydrALAZINE 20 MG/1 ML VIAL IV STA (22:28)
[2018-08-21 22:32] LABS: Glucose 504 MG/DL (74-106)
[2018-08-22] MEDS ORDERED: CYCLOBENZAPRINE 10 MG TABLET PO PRN (00:59)
[2018-08-22] MEDS ORDERED: ALBUTEROL 2.5 MG/3 ML NEB RESP TX PRN (01:47)
[2018-08-22] MEDS ORDERED: ZALEPLON 5 MG CAPSULE PO PRN (01:47)
[2018-08-22] MEDS ORDERED: GLUCAGON 1 MG VIAL IM PRN (01:47)
[2018-08-22] MEDS ORDERED: DEXTROSE 50% 25 GM/50 ML SYRINGE IV PRN (01:47)
[2018-08-22] MEDS ORDERED: DOCUSATE SODIUM 100 MG CAPSULE PO PRN (01:47)
[2018-08-22] MEDS ORDERED: ACETAMINOPHEN 325 MG TABLET PO PRN (01:47)
[2018-08-22] MEDS ORDERED: ONDANSETRON 4 MG/2 ML VIAL IV PRN (01:47)
[2018-08-22] MEDS ORDERED: ALBUTEROL/IPRATROPIUM 3 ML NEB RESP TX PRN (01:57)
[2018-08-22] MEDS ORDERED: hydrALAZINE 20 MG/1 ML VIAL IV PRN (02:27)
[2018-08-22] MEDS: AZTREONAM 2,000 MG in SODIUM CHLORIDE 0.9% 100 ML IV SCH ×4 (02:30→22:42)
[2018-08-22 06:54] LABS: Basophils # 0.1 10*3/uL (0.0-0.2); Basophils % 0.4 % (0.0-0.8); Eosinophils # 0.5 10*3/uL (0.0-0.87); Eosinophils % 2.7 % (0.00-10.9); Hematocrit 27.3 VOL% (35.7-47.0); Hemoglobin 8.7 GM/DL (12.0-16.0); Immature Granulocytes % 0.8 %; Immature Granulocytes Absolute 0.14 #; Mean Corpuscular HGB Conc 31.9 GM/DL (32-36); Mean Corpuscular Hemoglobin 29 PG (27-34); Mean Corpuscular Volume 92.2 FL (87-102); Mean Platelet Volume 12.2 FL (9.6-12.0); Monocytes # 1.1 10*3/uL (0.11-0.8); Neutrophils # 14.3 10*3/uL (1.4-7.4); Neutrophils % 79.1 % (38.7-73.9); Platelet Count 281 T/CUMM (130-400); Red Blood Count 2.96 MC/CUMM (3.8-5.5); Red Cell Distribution Width 17.1 % (9.3-17.3); White Blood Count 18.1 T/CUMM (4-12)
[2018-08-22] MEDS: ENOXAPARIN 30 MG/0.3 ML SYRINGE SUBCUT SCH (07:07)
[2018-08-22] MEDS: INSULIN REGULAR 100 UNIT/ML SUBCUT SCH ×5 (07:10→21:59)
[2018-08-22 07:16] LABS: Alanine Aminotransferase 43 U/L (13-56); Albumin 1.9 G/DL (3.4-5.0); Alkaline Phosphatase 173 U/L (45-117); Aspartate Amino Transferase 52 U/L (0-37); Bilirubin,Total < 0.39 MG/DL (0.2-1.0); Blood Urea Nitrogen 17 MG/DL (7-18); Calcium 7.8 MG/DL (8.5-10.1); Glucose 169 MG/DL (74-106); Potassium 3.6 MMOL/L (3.5-5.1); Sodium 136 MMOL/L (136-145); Total Protein 6.5 G/DL (6.4-8.3)
[2018-08-22] MEDS ORDERED: MAGNESIUM SULF RIDER 2 GM in PREMIX 1 EACH IV ONE (08:12)
[2018-08-22] MEDS ORDERED: SODIUM CHLORIDE 0.9% 100 ML IV ONE (08:39)
[2018-08-22] MEDS ORDERED: AZTREONAM 1,000 MG VIAL ONE (08:39)
[2018-08-22] MEDS: FUROSEMIDE 40 MG/4 ML VIAL IV SCH ×3 (08:50→17:21)
[2018-08-22] MEDS: PREGABALIN 75 MG CAPSULE PO SCH ×2 (10:08→21:58)
[2018-08-22] MEDS: METHOCARBAMOL 500 MG TABLET PO SCH ×3 (10:08→21:57)
[2018-08-22] MEDS: CITALOPRAM 20 MG TABLET PO SCH (10:08)
[2018-08-22] MEDS ORDERED: ASPIRIN CHEW 81 MG TABLET PO ONE ×2 (17:05→17:06)
[2018-08-22] MEDS ORDERED: NITROGLYCERIN SL 0.4 MG TABLET SL PRN (17:05)
[2018-08-22 17:23] LABS: Basophils # 0.1 10*3/uL (0.0-0.2); Basophils % 0.6 % (0.0-0.8); Eosinophils # 0.7 10*3/uL (0.0-0.87); Eosinophils % 5.2 % (0.00-10.9); Hematocrit 26.5 VOL% (35.7-47.0); Hemoglobin 8.4 GM/DL (12.0-16.0); Immature Granulocytes % 0.8 %; Lymphocytes # 2.4 10*3/uL (1.4-4.0); Mean Corpuscular HGB Conc 31.7 GM/DL (32-36); Mean Corpuscular Hemoglobin 30 PG (27-34); Mean Corpuscular Volume 94.6 FL (87-102); Mean Platelet Volume 12.3 FL (9.6-12.0); Monocytes # 0.9 10*3/uL (0.11-0.8); Monocytes % 6.9 % (1.7-12.7); Neutrophils # 8.5 10*3/uL (1.4-7.4); Neutrophils % 67.5 % (38.7-73.9); Platelet Count 274 T/CUMM (130-400); Red Cell Distribution Width 17.2 % (9.3-17.3); White Blood Count 12.7 T/CUMM (4-12)
[2018-08-22] MEDS: MORPHINE 4 MG/1 ML VIAL IV PRN ×2 (17:32→20:08)
[2018-08-22 17:53] LABS: Alanine Aminotransferase 36 U/L (13-56); Albumin 1.8 G/DL (3.4-5.0); Alkaline Phosphatase 183 U/L (45-117); Aspartate Amino Transferase 43 U/L (0-37); Bilirubin,Total < 0.39 MG/DL (0.2-1.0); Blood Urea Nitrogen 19 MG/DL (7-18); Calcium 7.8 MG/DL (8.5-10.1); Glucose 297 MG/DL (74-106); Osmolality,Calculated 276.5 MOS/KG (273-304); Potassium 3.7 MMOL/L (3.5-5.1); Sodium 132 MMOL/L (136-145); Total Protein 6.5 G/DL (6.4-8.3)
[2018-08-22] MEDS: TEMAZEPAM 15 MG CAPSULE PO SCH (21:58)
[2018-08-22] MEDS: INSULIN GLARGINE 100 UNIT/ML SUBCUT SCH (22:00)
[2018-08-22] MEDS ORDERED: BENZONATATE 100 MG CAPSULE PO PRN (23:55)
[2018-08-23] MEDS: MORPHINE 4 MG/1 ML VIAL IV PRN (03:09)
[2018-08-23] MEDS: AZTREONAM 2,000 MG in SODIUM CHLORIDE 0.9% 100 ML IV SCH ×2 (04:40→11:41)
[2018-08-23 04:53] LABS: Basophils # 0.1 10*3/uL (0.0-0.2); Basophils % 0.7 % (0.0-0.8); Eosinophils # 0.7 10*3/uL (0.0-0.87); Eosinophils % 7.8 % (0.00-10.9); Hematocrit 27.8 VOL% (35.7-47.0); Hemoglobin 8.7 GM/DL (12.0-16.0); Immature Granulocytes % 0.7 %; Immature Granulocytes Absolute 0.07 #; Lymphocytes # 2.4 10*3/uL (1.4-4.0); Lymphocytes % 25.5 % (21.3-54.2); Mean Corpuscular HGB Conc 31.3 GM/DL (32-36); Mean Corpuscular Hemoglobin 29 PG (27-34); Mean Corpuscular Volume 93.9 FL (87-102); Mean Platelet Volume 13.3 FL (9.6-12.0); Monocytes # 0.7 10*3/uL (0.11-0.8); Monocytes % 7.6 % (1.7-12.7); Neutrophils # 5.4 10*3/uL (1.4-7.4); Neutrophils % 57.7 % (38.7-73.9); Platelet Count 262 T/CUMM (130-400); Red Blood Count 2.96 MC/CUMM (3.8-5.5); Red Cell Distribution Width 17.2 % (9.3-17.3); White Blood Count 9.4 T/CUMM (4-12)
[2018-08-23 05:27] LABS: Calcium 7.9 MG/DL (8.5-10.1); Potassium 4.4 MMOL/L (3.5-5.1)
[2018-08-23 07:29] LABS: Eosinophils 8 % (0-10); Lymphocytes 31 % (20-55); Segmented Neutrophils 58 % (50-85); Total Cells Counted 100
[2018-08-23 07:30] LABS: Hypochromasia 1+; Target Cells Few
[2018-08-23 07:31] LABS: Anisocytosis 1+; Microcytosis 1+; Platelet Estimate Normal
[2018-08-23] MEDS: INSULIN REGULAR 100 UNIT/ML SUBCUT SCH ×4 (08:45→20:53)
[2018-08-23] MEDS: PREGABALIN 75 MG CAPSULE PO SCH ×2 (08:46→20:52)
[2018-08-23] MEDS: METHOCARBAMOL 500 MG TABLET PO SCH ×3 (08:46→20:52)
[2018-08-23] MEDS: ENOXAPARIN 30 MG/0.3 ML SYRINGE SUBCUT SCH (08:46)
[2018-08-23] MEDS: CITALOPRAM 20 MG TABLET PO SCH (08:47)
[2018-08-23] MEDS: FUROSEMIDE 40 MG/4 ML VIAL IV SCH ×2 (08:48→15:17)
[2018-08-23] MEDS ORDERED: amLODIPine 5 MG TABLET PO SCH (09:00)
[2018-08-23] MEDS: traMADol 50 MG TABLET PO PRN ×2 (12:21→21:20)
[2018-08-23] MEDS: LIDOCAINE 5% PATCH TRANSDERM SCH (15:17)
[2018-08-23] MEDS: AZTREONAM 2,000 MG in SYRINGE 1 EACH IV SCH ×2 (15:25→23:18)
[2018-08-23] MEDS ORDERED: NICOTINE 21 MG/24 HR PATCH TRANSDERM PRN (16:23)
[2018-08-23] MEDS: TEMAZEPAM 15 MG CAPSULE PO SCH (20:52)
[2018-08-23] MEDS: amLODIPine 5 MG TABLET PO SCH (20:52)
[2018-08-23] MEDS: INSULIN GLARGINE 100 UNIT/ML SUBCUT SCH (20:53)
[2018-08-23] MEDS ORDERED: LEVOFLOXACIN INJ 750 MG in PREMIX 1 EACH IV SCH (21:00)
[2018-08-24 04:58] LABS: Basophils # 0.1 10*3/uL (0.0-0.2); Basophils % 0.7 % (0.0-0.8); Eosinophils # 0.7 10*3/uL (0.0-0.87); Eosinophils % 7.4 % (0.00-10.9); Hematocrit 27.8 VOL% (35.7-47.0); Hemoglobin 8.8 GM/DL (12.0-16.0); Immature Granulocytes % 0.8 %; Immature Granulocytes Absolute 0.08 #; Lymphocytes # 1.9 10*3/uL (1.4-4.0); Lymphocytes % 19.4 % (21.3-54.2); Mean Corpuscular HGB Conc 31.7 GM/DL (32-36); Mean Corpuscular Hemoglobin 29 PG (27-34); Mean Platelet Volume 12.7 FL (9.6-12.0); Monocytes # 0.8 10*3/uL (0.11-0.8); Monocytes % 8.1 % (1.7-12.7); Neutrophils # 6.3 10*3/uL (1.4-7.4); Neutrophils % 63.6 % (38.7-73.9); Platelet Count 311 T/CUMM (130-400); Red Blood Count 2.99 MC/CUMM (3.8-5.5); Red Cell Distribution Width 16.8 % (9.3-17.3)
[2018-08-24] MEDS: AZTREONAM 2,000 MG in SYRINGE 1 EACH IV SCH ×2 (05:09→09:33)
[2018-08-24 05:21] LABS: Calcium 8.1 MG/DL (8.5-10.1); Osmolality,Calculated 283.5 MOS/KG (273-304); Potassium 3.9 MMOL/L (3.5-5.1)
[2018-08-24] MEDS: traMADol 50 MG TABLET PO PRN (06:22)
[2018-08-24] MEDS: ENOXAPARIN 30 MG/0.3 ML SYRINGE SUBCUT SCH (06:23)
[2018-08-24] MEDS: LIDOCAINE 5% PATCH TRANSDERM SCH (09:28)
[2018-08-24] MEDS: FUROSEMIDE 40 MG/4 ML VIAL IV SCH (09:30)
[2018-08-24] MEDS: CITALOPRAM 20 MG TABLET PO SCH (09:31)
[2018-08-24] MEDS: METHOCARBAMOL 500 MG TABLET PO SCH (09:31)
[2018-08-24] MEDS: PREGABALIN 75 MG CAPSULE PO SCH (09:32)
[2018-08-24] MEDS: amLODIPine 5 MG TABLET PO SCH (09:32)
[2018-08-24] MEDS: INSULIN REGULAR 100 UNIT/ML SUBCUT SCH ×2 (09:39→12:03)
[2018-08-24 11:55] VITALS: BP 144/84
[2018-08-24] MEDS ORDERED: KETOROLAC 30 MG/1 ML VIAL IM ONE (12:22)
== END 2018-08-24 13:55 | disposition home or self-care (01) | DRG 291 ==
LOC: N.ED 20:52 → SUATTDRO 08-22 00:58 → N.EDINP 08-22 00:58 → N.2E 08-22 14:32
PROVIDERS: ADMIT Family Medicine; ATTEND Internal Medicine

== ENCOUNTER 2018-08-30 17:06 | Inpatient (IN) ==
[2018-08-30] MEDS ORDERED: ONDANSETRON 4 MG/2 ML VIAL ONE (18:09)
[2018-08-30] MEDS ORDERED: ONDANSETRON 4 MG/2 ML VIAL IV STA (18:19)
[2018-08-30 18:25] LABS: Basophils # 0.2 10*3/uL (0.0-0.2); Eosinophils % 0.2 % (0.00-10.9); Hematocrit 37.1 VOL% (35.7-47.0); Hemoglobin 11.4 GM/DL (12.0-16.0); Immature Granulocytes % 0.5 %; Immature Granulocytes Absolute 0.08 #; Lymphocytes % 6.3 % (21.3-54.2); Mean Corpuscular HGB Conc 30.7 GM/DL (32-36); Mean Corpuscular Hemoglobin 29 PG (27-34); Mean Corpuscular Volume 95.4 FL (87-102); Monocytes # 0.2 10*3/uL (0.11-0.8); Monocytes % 1.1 % (1.7-12.7); Neutrophils # 14.7 10*3/uL (1.4-7.4); Neutrophils % 90.9 % (38.7-73.9); Platelet Count 376 T/CUMM (130-400); Red Blood Count 3.89 MC/CUMM (3.8-5.5); Red Cell Distribution Width 18.8 % (9.3-17.3); White Blood Count 16.1 T/CUMM (4-12)
[2018-08-30 18:39] LABS: Albumin 2.7 G/DL (3.4-5.0); Bilirubin,Total 0.8 MG/DL (0.2-1.0); Osmolality,Calculated 298.5 MOS/KG (273-304); Potassium 4.7 MMOL/L (3.5-5.1); Total Protein 8.3 G/DL (6.4-8.3)
[2018-08-30] MEDS ORDERED: INSULIN REGULAR 100 UNIT/ML IV STA (18:44)
[2018-08-30] MEDS ORDERED: SODIUM CHLORIDE 0.9% 1,000 ML IV STA (18:47)
[2018-08-30] MEDS ORDERED: MORPHINE 4 MG/1 ML VIAL IV STA (18:47)
[2018-08-30] MEDS ORDERED: FAMOTIDINE 20 MG/2 ML VIAL IV STA (18:48)
[2018-08-30 19:00] LABS: Lymphocytes 6 % (20-55)
[2018-08-30 19:01] LABS: Hypochromasia Slight; Platelet Estimate Normal; Segmented Neutrophils 92 % (50-85)
[2018-08-30 19:02] LABS: Macrocytosis 1+; Total Cells Counted 100
[2018-08-30] MEDS ORDERED: SODIUM CHLORIDE 0.9% 1,000 ML IV ONE (19:16)
[2018-08-30] MEDS ORDERED: SODIUM CHLORIDE 0.9% IV PRN (19:16)
[2018-08-30] MEDS ORDERED: POTASSIUM CHLORIDE RIDER 10 MEQ in PREMIX 1 EACH IV PRN (19:16)
[2018-08-30] MEDS ORDERED: MAGNESIUM SULF RIDER 4 GM in PREMIX 1 EACH IV PRN (19:16)
[2018-08-30] MEDS ORDERED: MAGNESIUM SULF RIDER 2 GM in PREMIX 1 EACH IV PRN (19:16)
[2018-08-30] MEDS ORDERED: SODIUM PHOSPHATE IV PRN (19:16)
[2018-08-30] MEDS ORDERED: SODIUM BICARB INJ 100 MEQ in STERILE WATER INJ 400 ML IV PRN (19:16)
[2018-08-30] MEDS ORDERED: DEXTROSE 50% 25 GM/50 ML SYRINGE IV PRN ×2 (19:16)
[2018-08-30] MEDS ORDERED: ALBUTEROL/IPRATROPIUM 3 ML NEB RESP TX PRN (19:22)
[2018-08-30] MEDS ORDERED: INSULIN REGULAR DRIP 100 ML IV SCH (19:30)
[2018-08-30] MEDS ORDERED: METOCLOPRAMIDE 10 MG/2 ML VIAL IV STA (19:40)
[2018-08-30 19:43] LABS: Albumin 2.8 G/DL (3.4-5.0); Bilirubin,Direct 0.38 MG/DL (0.0-0.20); Bilirubin,Indirect 0.4 MG/DL (0.0-1.0); Bilirubin,Total 0.8 MG/DL (0.2-1.0); Total Protein 8.4 G/DL (6.4-8.3)
[2018-08-30 19:54] LABS: ABG Base Excess -15.2 MMOL/L (-2.5-2.5); ABG HCO3 12.8 MMOL/L (20-26); ABG Oxygen Saturation 97.7 % (95-100); ABG PCO2 24.6 MM HG (35-48); ABG PH 7.251 (7.35-7.45); Allen Test Positive; Pt O2 Delivery Device Room Air
[2018-08-30] MEDS: SODIUM CHLORIDE 0.9% 1,000 ML IV SCH ×2 (21:15→22:33)
[2018-08-30] MEDS ORDERED: LEVOFLOXACIN INJ 750 MG in PREMIX 1 EACH IV SCH (21:30)
[2018-08-30] MEDS: INSULIN GLARGINE 100 UNIT/ML SUBCUT SCH (21:56)
[2018-08-30] MEDS: ENOXAPARIN 40 MG/0.4 ML SYRINGE SUBCUT SCH (22:00)
[2018-08-30] MEDS: ONDANSETRON 4 MG/2 ML VIAL IV PRN (22:00)
[2018-08-30] MEDS: MORPHINE 4 MG/1 ML VIAL IV PRN (22:15)
[2018-08-30] MEDS: amLODIPine 5 MG TABLET PO SCH (22:31)
[2018-08-30] MEDS: METHOCARBAMOL 500 MG TABLET PO SCH (23:07)
[2018-08-30] MEDS: PREGABALIN 75 MG CAPSULE PO SCH (23:07)
[2018-08-30 23:28] LABS: Osmolality,Calculated 313.1 MOS/KG (273-304); Potassium 5.5 MMOL/L (3.5-5.1)
[2018-08-30] MEDS: INSULIN REGULAR 100 UNIT/ML IV ONE (23:42)
[2018-08-30] MEDS: INSULIN REGULAR DRIP 100 ML IV PRN (23:44)
[2018-08-30 23:56] LABS: Calcium 7.9 MG/DL (8.5-10.1); Potassium 5.4 MMOL/L (3.5-5.1)
[2018-08-31] MEDS ORDERED: SODIUM CHLORIDE 0.9% 1,000 ML IV SCH (00:16)
[2018-08-31] MEDS: MORPHINE 4 MG/1 ML VIAL IV PRN ×6 (01:56→23:50)
[2018-08-31 02:07] LABS: Apearance,Urine CLOUDY (Clear); Bacteria,Urine Few /HPF (Few); Bilirubin,Urine Negative (Negative); Blood, Urine Small mg/dL (Negative); Glucose,Urine (UA) >=500 mg/dL (Negative); Ketones,Urine 80 mg/dL (Negative); Mucus,Urine Occasional /LPF (Occasional); Nitrite,Urine Negative (Negative); Protein,Urine Negative; RBC,Urine 3 /HPF (0-4); Squamous Epithelial Cell,Urine Few /HPF (0-10); Urine Color Yellow (Yellow); Urine Specific Gravity 1.015 (1.001-1.035); Urine Urobilinogen < 2.0 EU/DL (0.2-1.0); WBC,Urine 4 /HPF (0-6)
[2018-08-31 05:19] LABS: Calcium 8.1 MG/DL (8.5-10.1); Osmolality,Calculated 305.5 MOS/KG (273-304); Potassium 4.4 MMOL/L (3.5-5.1)
[2018-08-31 05:24] LABS: Albumin 2.4 G/DL (3.4-5.0); Basophils # 0.1 10*3/uL (0.0-0.2); Basophils % 0.4 % (0.0-0.8); Bilirubin,Direct 0.17 MG/DL (0.0-0.20); Bilirubin,Indirect 0.6 MG/DL (0.0-1.0); Bilirubin,Total 0.8 MG/DL (0.2-1.0); Eosinophils % 0.1 % (0.00-10.9); Hematocrit 29.3 VOL% (35.7-47.0); Immature Granulocytes % 1.5 %; Immature Granulocytes Absolute 0.39 #; Lymphocytes # 3.2 10*3/uL (1.4-4.0); Lymphocytes % 12.4 % (21.3-54.2); Mean Corpuscular HGB Conc 30.7 GM/DL (32-36); Mean Corpuscular Hemoglobin 30 PG (27-34); Mean Corpuscular Volume 97.7 FL (87-102); Mean Platelet Volume 12.3 FL (9.6-12.0); Monocytes # 1.3 10*3/uL (0.11-0.8); Neutrophils # 20.5 10*3/uL (1.4-7.4); Neutrophils % 80.6 % (38.7-73.9); Platelet Count 324 T/CUMM (130-400); Red Cell Distribution Width 18.6 % (9.3-17.3); Total Protein 7.1 G/DL (6.4-8.3)
[2018-08-31 05:26] LABS: White Blood Count 25.5 T/CUMM (4-12)
[2018-08-31 05:47] LABS: Band Neutrophils 7 % (0-10); Lymphocytes 11 % (20-55); Platelet Estimate Normal; Segmented Neutrophils 77 % (50-85); Total Cells Counted 100
[2018-08-31 06:33] LABS: Hepatitis A Ab IgM Quant 0.18 Index; Hepatitis A Ab IgM Result Negative (Negative); Hepatitis B Core IgM Quant 0.11 Index; Hepatitis B Core IgM Result Negative (Negative); Hepatitis B Surface Ag Quant 0.28 Index; Hepatitis B Surface Ag Result Negative (Negative); Hepatitis C Virus Ab Quant 0.07 Index; Hepatitis C Virus Ab Result Negative (Negative)
[2018-08-31] MEDS ORDERED: SODIUM CHLOR 0.45% KCL 20 MEQ 20 MEQ/1,000 ML BAG IV SCH (07:30)
[2018-08-31 07:50] LABS: Calcium 7.8 MG/DL (8.5-10.1); Osmolality,Calculated 300.3 MOS/KG (273-304)
[2018-08-31] MEDS: METHOCARBAMOL 500 MG TABLET PO SCH ×3 (08:57→21:05)
[2018-08-31] MEDS: CITALOPRAM 20 MG TABLET PO SCH (08:58)
[2018-08-31] MEDS: PREGABALIN 75 MG CAPSULE PO SCH ×2 (08:58→21:05)
[2018-08-31] MEDS: DEXT 5% NACL 0.45% KCL 20 MEQ 20 MEQ/1,000 ML BAG IV SCH ×3 (09:00→22:22)
[2018-08-31] MEDS: amLODIPine 5 MG TABLET PO SCH ×2 (09:00→21:05)
[2018-08-31] MEDS: INSULIN REGULAR 100 UNIT/ML IV ONE (09:04)
[2018-08-31] MEDS: ONDANSETRON 4 MG/2 ML VIAL IV PRN ×2 (09:19→13:07)
[2018-08-31] MEDS: diphenhydrAMINE 25 MG/10 ML UDCUP PO PRN ×2 (10:38→21:39)
[2018-08-31 12:04] LABS: Osmolality,Calculated 282.5 MOS/KG (273-304); Potassium 3.7 MMOL/L (3.5-5.1)
[2018-08-31] MEDS ORDERED: SODIUM CHLORIDE 0.45% 1,000 ML IV SCH (12:16)
[2018-08-31 16:27] LABS: Calcium 7.7 MG/DL (8.5-10.1); Osmolality,Calculated 280.5 MOS/KG (273-304)
[2018-08-31] MEDS: INSULIN REGULAR DRIP 100 ML IV PRN (17:43)
[2018-08-31] MEDS: INSULIN GLARGINE 100 UNIT/ML SUBCUT SCH (21:04)
[2018-08-31] MEDS: ENOXAPARIN 40 MG/0.4 ML SYRINGE SUBCUT SCH (21:05)
[2018-08-31 21:06] LABS: Osmolality,Calculated 276.2 MOS/KG (273-304); Potassium 3.9 MMOL/L (3.5-5.1)
[2018-08-31] MEDS: CYCLOBENZAPRINE 10 MG TABLET PO PRN (23:53)
[2018-09-01] MEDS: INSULIN LISPRO 100 UNIT/ML SUBCUT SCH ×6 (02:16→21:24)
[2018-09-01] MEDS: MORPHINE 4 MG/1 ML VIAL IV PRN (03:20)
[2018-09-01] MEDS: DEXT 5% NACL 0.45% KCL 20 MEQ 20 MEQ/1,000 ML BAG IV SCH (03:56)
[2018-09-01 03:57] LABS: Calcium 7.9 MG/DL (8.5-10.1); Osmolality,Calculated 285.2 MOS/KG (273-304); Potassium 4.4 MMOL/L (3.5-5.1)
[2018-09-01] MEDS: PREGABALIN 75 MG CAPSULE PO SCH ×2 (08:32→21:25)
[2018-09-01] MEDS: CYCLOBENZAPRINE 10 MG TABLET PO PRN (08:32)
[2018-09-01] MEDS: METHOCARBAMOL 500 MG TABLET PO SCH ×3 (08:33→21:25)
[2018-09-01] MEDS ORDERED: LEVOFLOXACIN 750 MG TABLET PO SCH (09:00)
[2018-09-01] MEDS: amLODIPine 5 MG TABLET PO SCH ×2 (09:36→21:25)
[2018-09-01] MEDS: CITALOPRAM 20 MG TABLET PO SCH (09:36)
[2018-09-01] MEDS: ONDANSETRON 4 MG/2 ML VIAL IV PRN ×2 (17:17→20:06)
[2018-09-01 18:11] VITALS: BP 150/85
[2018-09-01] MEDS: INSULIN GLARGINE 100 UNIT/ML SUBCUT SCH (21:24)
[2018-09-01] MEDS: ENOXAPARIN 40 MG/0.4 ML SYRINGE SUBCUT SCH (21:25)
[2018-09-02] MEDS: diphenhydrAMINE 25 MG/10 ML UDCUP PO PRN (01:52)
[2018-09-02 05:19] LABS: Basophils % 0.8 % (0.0-0.8); Eosinophils # 0.5 10*3/uL (0.0-0.87); Eosinophils % 9.6 % (0.00-10.9); Hematocrit 28.2 VOL% (35.7-47.0); Hemoglobin 8.6 GM/DL (12.0-16.0); Immature Granulocytes % 0.6 %; Immature Granulocytes Absolute 0.03 #; Lymphocytes # 1.8 10*3/uL (1.4-4.0); Lymphocytes % 37.1 % (21.3-54.2); Mean Corpuscular HGB Conc 30.5 GM/DL (32-36); Mean Corpuscular Hemoglobin 29 PG (27-34); Mean Corpuscular Volume 95.6 FL (87-102); Mean Platelet Volume 12.3 FL (9.6-12.0); Monocytes # 0.3 10*3/uL (0.11-0.8); Monocytes % 5.2 % (1.7-12.7); Neutrophils # 2.2 10*3/uL (1.4-7.4); Neutrophils % 46.7 % (38.7-73.9); Platelet Count 251 T/CUMM (130-400); Red Blood Count 2.95 MC/CUMM (3.8-5.5); Red Cell Distribution Width 19.3 % (9.3-17.3); White Blood Count 4.8 T/CUMM (4-12)
[2018-09-02 05:40] LABS: Calcium 8.3 MG/DL (8.5-10.1); Osmolality,Calculated 284.5 MOS/KG (273-304); Potassium 4.5 MMOL/L (3.5-5.1)
[2018-09-02] MEDS: CYCLOBENZAPRINE 10 MG TABLET PO PRN (07:26)
[2018-09-02] MEDS ORDERED: INSULIN GLARGINE 100 UNIT/ML SUBCUT ONE (08:01)
[2018-09-02] MEDS: amLODIPine 5 MG TABLET PO SCH (09:15)
[2018-09-02] MEDS: PREGABALIN 75 MG CAPSULE PO SCH (09:16)
[2018-09-02] MEDS: METHOCARBAMOL 500 MG TABLET PO SCH (09:16)
[2018-09-02] MEDS: CITALOPRAM 20 MG TABLET PO SCH (09:16)
[2018-09-02] MEDS: INSULIN LISPRO 100 UNIT/ML SUBCUT SCH (09:19)
== END 2018-09-02 09:30 | disposition home or self-care (01) | DRG 637 ==
LOC: EDUNIT# → N.ED 17:06 → N.EDINP 19:16 → SUATTDRO 19:16 → N.ICU 20:48
PROVIDERS: ADMIT Internal Medicine; ATTEND Internal Medicine

== ENCOUNTER 2018-09-18 17:01 | Inpatient (IN) ==
[2018-09-18] MEDS ORDERED: SODIUM CHLORIDE 0.9% 1,000 ML IV STA (17:26)
[2018-09-18] MEDS ORDERED: ONDANSETRON 4 MG/2 ML VIAL IV STA (17:26)
[2018-09-18] MEDS ORDERED: ONDANSETRON 4 MG/2 ML VIAL ONE (17:29)
[2018-09-18 18:18] LABS: Basophils # 0.1 10*3/uL (0.0-0.2); Basophils % 0.7 % (0.0-0.8); Eosinophils % 0.1 % (0.00-10.9); Hematocrit 36.8 VOL% (35.7-47.0); Hemoglobin 11.3 GM/DL (12.0-16.0); Immature Granulocytes % 0.7 %; Lymphocytes # 0.7 10*3/uL (1.4-4.0); Mean Corpuscular HGB Conc 30.7 GM/DL (32-36); Mean Corpuscular Hemoglobin 30 PG (27-34); Mean Corpuscular Volume 97.9 FL (87-102); Mean Platelet Volume 13.3 FL (9.6-12.0); Monocytes # 0.2 10*3/uL (0.11-0.8); Monocytes % 1.5 % (1.7-12.7); Neutrophils # 12.5 10*3/uL (1.4-7.4); Platelet Count 319 T/CUMM (130-400); Red Blood Count 3.76 MC/CUMM (3.8-5.5); Red Cell Distribution Width 21.6 % (9.3-17.3); White Blood Count 13.6 T/CUMM (4-12)
[2018-09-18] MEDS ORDERED: KETOROLAC 30 MG/1 ML VIAL IV STA (18:30)
[2018-09-18] MEDS ORDERED: INSULIN REGULAR 100 UNIT/ML IV STA (18:30)
[2018-09-18 18:53] LABS: Alanine Aminotransferase 228 U/L (13-56); Amylase 40 U/L (25-115); Aspartate Amino Transferase 79 U/L (0-37); Blood Urea Nitrogen 25 MG/DL (7-18); Calcium 9.6 MG/DL (8.5-10.1); Lipase < 50.0 U/L (73-393); Osmolality,Calculated 293.4 MOS/KG (273-304); Potassium 4.5 MMOL/L (3.5-5.1); Sodium 133 MMOL/L (136-145); Total Protein 8.5 G/DL (6.4-8.3)
[2018-09-18 19:00] LABS: Eosinophils 1 % (0-10); Hypochromasia Slight; Lymphocytes 3 % (20-55); Platelet Estimate Normal; Segmented Neutrophils 96 % (50-85)
[2018-09-18 19:01] LABS: Polychromasia Slight; Total Cells Counted 100
[2018-09-18 19:02] LABS: Alkaline Phosphatase 1488 U/L (45-117)
[2018-09-18 19:06] LABS: Glucose 531 MG/DL (74-106)
[2018-09-18] MEDS ORDERED: HYDROmorphone 2 MG/1 ML VIAL IV ONE (19:14)
[2018-09-18 19:17] LABS: Apearance,Urine CLEAR (Clear); Bilirubin,Urine Negative (Negative); Blood, Urine Large mg/dL (Negative); Glucose,Urine (UA) >=500 mg/dL (Negative); Ketones,Urine 80 mg/dL (Negative); Nitrite,Urine Negative (Negative); Protein,Urine 100 MG/DL; RBC,Urine 385 /HPF (0-4); Squamous Epithelial Cell,Urine Occasional /HPF (0-10); Urine Color Yellow (Yellow); Urine Specific Gravity 1.023 (1.001-1.035); Urine Urobilinogen < 2.0 EU/DL (0.2-1.0); WBC,Urine 10 /HPF (0-6)
[2018-09-18 19:32] LABS: Barbiturates Screen,Urine Negative (Negative); Benzodiazepines Screen,Urine Negative (Negative); Cannabinoid Screen,Urine Negative (Negative); Opiate Screen,Urine Positive (Negative); Phencyclidine Screen,Urine Negative (Negative)
[2018-09-18] MEDS ORDERED: LEVOFLOXACIN INJ 750 MG in PREMIX 1 EACH IV STA (19:54)
[2018-09-18] MEDS ORDERED: SODIUM CHLORIDE 0.9% 1,000 ML IV ONE (19:57)
[2018-09-18] MEDS ORDERED: DEXTROSE 50% 25 GM/50 ML SYRINGE IV PRN ×2 (19:57)
[2018-09-18] MEDS ORDERED: SODIUM PHOSPHATE INJ 19.3 MMOL in SODIUM CHLORIDE 0.9% 250 ML IV PRN (19:57)
[2018-09-18] MEDS ORDERED: MAGNESIUM SULF RIDER 2 GM in PREMIX 1 EACH IV PRN (19:57)
[2018-09-18] MEDS ORDERED: SODIUM BICARB INJ 100 MEQ in STERILE WATER INJ 400 ML IV PRN (19:57)
[2018-09-18] MEDS ORDERED: POTASSIUM CHLORIDE RIDER 10 MEQ in PREMIX 1 EACH IV PRN (19:57)
[2018-09-18] MEDS ORDERED: MAGNESIUM SULF RIDER 4 GM in PREMIX 1 EACH IV PRN (19:57)
[2018-09-18] MEDS ORDERED: INSULIN REGULAR DRIP 100 ML IV SCH (20:00)
[2018-09-18] MEDS ORDERED: ONDANSETRON 4 MG/2 ML VIAL IV PRN (20:05)
[2018-09-18] MEDS ORDERED: ALBUTEROL 2.5 MG/3 ML NEB RESP TX PRN (20:05)
[2018-09-18] MEDS ORDERED: PROMETHAZINE 25 MG/1 ML VIAL IM PRN (20:05)
[2018-09-18] MEDS ORDERED: ALBUTEROL/IPRATROPIUM 3 ML NEB RESP TX PRN (20:10)
[2018-09-18] MEDS: PANTOPRAZOLE 40 MG VIAL IV SCH (21:15)
[2018-09-18] MEDS: PREGABALIN 75 MG CAPSULE PO SCH (21:16)
[2018-09-18] MEDS: SODIUM CHLORIDE 0.9% 1,000 ML IV SCH ×2 (21:16→23:57)
[2018-09-18] MEDS: ENOXAPARIN 40 MG/0.4 ML SYRINGE SUBCUT SCH (21:16)
[2018-09-18] MEDS: TEMAZEPAM 15 MG CAPSULE PO SCH (21:17)
[2018-09-18] MEDS: amLODIPine 5 MG TABLET PO SCH (21:17)
[2018-09-18] MEDS: METHOCARBAMOL 500 MG TABLET PO SCH (21:17)
[2018-09-18 21:50] LABS: Troponin I < 0.015 NG/ML (0.00-0.045)
[2018-09-18] MEDS: CYCLOBENZAPRINE 10 MG TABLET PO PRN (22:22)
[2018-09-18 22:57] LABS: Calcium 8.8 MG/DL (8.5-10.1); Osmolality,Calculated 292.1 MOS/KG (273-304); Potassium 4.1 MMOL/L (3.5-5.1)
[2018-09-19 00:32] LABS: Calcium 7.9 MG/DL (8.5-10.1); Potassium 3.7 MMOL/L (3.5-5.1)
[2018-09-19] MEDS ORDERED: SODIUM CHLORIDE 0.9% 1,000 ML IV SCH (00:57)
[2018-09-19] MEDS: HYDROmorphone 2 MG/1 ML VIAL IV PRN ×2 (01:06→05:46)
[2018-09-19] MEDS: METOCLOPRAMIDE 10 MG/2 ML VIAL IV SCH ×4 (01:06→17:46)
[2018-09-19 04:16] LABS: Basophils % 0.3 % (0.0-0.8); Eosinophils % 0.2 % (0.00-10.9); Hematocrit 30.3 VOL% (35.7-47.0); Hemoglobin 9.1 GM/DL (12.0-16.0); Immature Granulocytes % 0.5 %; Immature Granulocytes Absolute 0.07 #; Lymphocytes # 1.6 10*3/uL (1.4-4.0); Lymphocytes % 12.4 % (21.3-54.2); Mean Corpuscular Hemoglobin 31 PG (27-34); Mean Corpuscular Volume 102.4 FL (87-102); Mean Platelet Volume 13.6 FL (9.6-12.0); Monocytes # 0.4 10*3/uL (0.11-0.8); Monocytes % 3.4 % (1.7-12.7); Neutrophils # 10.6 10*3/uL (1.4-7.4); Neutrophils % 83.2 % (38.7-73.9); Platelet Count 257 T/CUMM (130-400); Red Blood Count 2.96 MC/CUMM (3.8-5.5); Red Cell Distribution Width 20.8 % (9.3-17.3); White Blood Count 12.8 T/CUMM (4-12)
[2018-09-19 04:57] LABS: Albumin 2.3 G/DL (3.4-5.0); Bilirubin,Total 0.8 MG/DL (0.2-1.0); Calcium 7.8 MG/DL (8.5-10.1); Osmolality,Calculated 287.1 MOS/KG (273-304); Total Protein 6.7 G/DL (6.4-8.3)
[2018-09-19] MEDS: SODIUM CHLORIDE 0.45% 1,000 ML IV SCH ×2 (05:28→13:29)
[2018-09-19] MEDS: DEXTROSE 5% NACL 0.9% 1,000 ML IV SCH ×2 (05:30→13:28)
[2018-09-19] MEDS: DEXT 5% NACL 0.45% KCL 20 MEQ 20 MEQ/1,000 ML BAG IV SCH ×2 (06:19→10:31)
[2018-09-19] MEDS: amLODIPine 5 MG TABLET PO SCH ×2 (08:17→21:01)
[2018-09-19] MEDS: CITALOPRAM 20 MG TABLET PO SCH (08:17)
[2018-09-19] MEDS: PREGABALIN 75 MG CAPSULE PO SCH ×2 (08:17→21:01)
[2018-09-19] MEDS: FUROSEMIDE 40 MG TABLET PO SCH (08:17)
[2018-09-19] MEDS: METHOCARBAMOL 500 MG TABLET PO SCH ×3 (08:17→21:01)
[2018-09-19 08:28] LABS: Calcium 7.8 MG/DL (8.5-10.1); Osmolality,Calculated 281.8 MOS/KG (273-304); Potassium 3.8 MMOL/L (3.5-5.1)
[2018-09-19] MEDS: INSULIN REGULAR 100 UNIT/ML SUBCUT SCH ×3 (10:29→15:50)
[2018-09-19] MEDS: INSULIN GLARGINE 100 UNIT/ML SUBCUT SCH ×2 (10:30→20:59)
[2018-09-19] MEDS: LACTATED RINGERS 1,000 ML IV SCH ×2 (11:20→21:51)
[2018-09-19 12:17] LABS: Calcium 7.8 MG/DL (8.5-10.1); Osmolality,Calculated 281.1 MOS/KG (273-304); Potassium 3.8 MMOL/L (3.5-5.1)
[2018-09-19] MEDS: INSULIN LISPRO 100 UNIT/ML SUBCUT SCH ×3 (12:30→20:59)
[2018-09-19] MEDS: CYCLOBENZAPRINE 10 MG TABLET PO PRN (15:49)
[2018-09-19 17:31] LABS: Calcium 7.6 MG/DL (8.5-10.1); Osmolality,Calculated 289.8 MOS/KG (273-304); Potassium 4.2 MMOL/L (3.5-5.1)
[2018-09-19] MEDS: PROMETHAZINE 25 MG TABLET PO SCH (20:59)
[2018-09-19] MEDS: PANTOPRAZOLE 40 MG VIAL IV SCH (20:59)
[2018-09-19] MEDS: ENOXAPARIN 40 MG/0.4 ML SYRINGE SUBCUT SCH (21:00)
[2018-09-19] MEDS ORDERED: INSULIN GLARGINE 100 UNIT/ML SUBCUT SCH (21:00)
[2018-09-19] MEDS: TEMAZEPAM 15 MG CAPSULE PO SCH (21:01)
[2018-09-20] MEDS: PROMETHAZINE 25 MG TABLET PO SCH ×4 (01:13→17:31)
[2018-09-20] MEDS: METOCLOPRAMIDE 10 MG/2 ML VIAL IV SCH ×4 (01:13→17:31)
[2018-09-20 06:29] LABS: Basophils # 0.1 10*3/uL (0.0-0.2); Basophils % 0.4 % (0.0-0.8); Eosinophils # 0.3 10*3/uL (0.0-0.87); Eosinophils % 2.1 % (0.00-10.9); Hematocrit 31.7 VOL% (35.7-47.0); Hemoglobin 9.8 GM/DL (12.0-16.0); Immature Granulocytes % 0.4 %; Immature Granulocytes Absolute 0.05 #; Lymphocytes # 1.8 10*3/uL (1.4-4.0); Lymphocytes % 13.3 % (21.3-54.2); Mean Corpuscular HGB Conc 30.9 GM/DL (32-36); Mean Corpuscular Hemoglobin 30 PG (27-34); Mean Corpuscular Volume 98.1 FL (87-102); Mean Platelet Volume 13.2 FL (9.6-12.0); Monocytes # 0.5 10*3/uL (0.11-0.8); Neutrophils # 10.8 10*3/uL (1.4-7.4); Neutrophils % 79.8 % (38.7-73.9); Platelet Count 289 T/CUMM (130-400); Red Blood Count 3.23 MC/CUMM (3.8-5.5); Red Cell Distribution Width 20.5 % (9.3-17.3); White Blood Count 13.6 T/CUMM (4-12)
[2018-09-20] MEDS ORDERED: INSULIN REGULAR 100 UNIT/ML SUBCUT SCH (07:30)
[2018-09-20] MEDS: CITALOPRAM 20 MG TABLET PO SCH (08:17)
[2018-09-20] MEDS: METHOCARBAMOL 500 MG TABLET PO SCH ×3 (08:18→21:38)
[2018-09-20] MEDS: FUROSEMIDE 40 MG TABLET PO SCH (08:18)
[2018-09-20] MEDS: amLODIPine 5 MG TABLET PO SCH ×2 (08:18→21:38)
[2018-09-20] MEDS: LACTATED RINGERS 1,000 ML IV SCH ×2 (08:19→17:13)
[2018-09-20] MEDS: PREGABALIN 75 MG CAPSULE PO SCH ×2 (08:19→21:38)
[2018-09-20] MEDS: INSULIN LISPRO 100 UNIT/ML SUBCUT SCH ×4 (08:20→21:37)
[2018-09-20] MEDS: INSULIN REGULAR 100 UNIT/ML SUBCUT SCH ×3 (08:21→16:43)
[2018-09-20] MEDS: ACETAMINOPHEN 325 MG TABLET PO PRN ×2 (14:34→21:36)
[2018-09-20] MEDS: CYCLOBENZAPRINE 10 MG TABLET PO PRN ×2 (17:34→21:58)
[2018-09-20] MEDS: INSULIN GLARGINE 100 UNIT/ML SUBCUT SCH (21:37)
[2018-09-20] MEDS: PANTOPRAZOLE 40 MG VIAL IV SCH (21:37)
[2018-09-20] MEDS: TEMAZEPAM 15 MG CAPSULE PO SCH (21:38)
[2018-09-20] MEDS: ENOXAPARIN 40 MG/0.4 ML SYRINGE SUBCUT SCH (21:38)
[2018-09-21] MEDS: METOCLOPRAMIDE 10 MG/2 ML VIAL IV SCH ×2 (01:39→06:10)
[2018-09-21] MEDS: PROMETHAZINE 25 MG TABLET PO SCH ×2 (01:39→06:10)
[2018-09-21] MEDS ORDERED: DEXTROSE 50% 25 GM/50 ML VIAL IV PRN ×2 (02:00)
[2018-09-21 05:09] LABS: Basophils # 0.1 10*3/uL (0.0-0.2); Basophils % 0.7 % (0.0-0.8); Eosinophils # 0.3 10*3/uL (0.0-0.87); Eosinophils % 3.9 % (0.00-10.9); Hematocrit 29.5 VOL% (35.7-47.0); Hemoglobin 9.2 GM/DL (12.0-16.0); Immature Granulocytes % 0.3 %; Immature Granulocytes Absolute 0.03 #; Lymphocytes # 1.9 10*3/uL (1.4-4.0); Lymphocytes % 22.3 % (21.3-54.2); Mean Corpuscular HGB Conc 31.2 GM/DL (32-36); Mean Corpuscular Hemoglobin 31 PG (27-34); Mean Platelet Volume 12.6 FL (9.6-12.0); Monocytes # 0.6 10*3/uL (0.11-0.8); Monocytes % 6.8 % (1.7-12.7); Neutrophils # 5.8 10*3/uL (1.4-7.4); Platelet Count 270 T/CUMM (130-400); Red Blood Count 2.98 MC/CUMM (3.8-5.5); Red Cell Distribution Width 20.4 % (9.3-17.3); White Blood Count 8.7 T/CUMM (4-12)
[2018-09-21 05:44] LABS: Calcium 8.1 MG/DL (8.5-10.1); Osmolality,Calculated 284.5 MOS/KG (273-304); Potassium 3.6 MMOL/L (3.5-5.1)
[2018-09-21] MEDS: INSULIN REGULAR 100 UNIT/ML SUBCUT SCH ×2 (08:31→11:15)
[2018-09-21] MEDS: INSULIN LISPRO 100 UNIT/ML SUBCUT SCH ×2 (08:31→11:15)
[2018-09-21] MEDS: METHOCARBAMOL 500 MG TABLET PO SCH (08:32)
[2018-09-21] MEDS: amLODIPine 5 MG TABLET PO SCH (08:32)
[2018-09-21] MEDS: CITALOPRAM 20 MG TABLET PO SCH (08:33)
[2018-09-21] MEDS: FUROSEMIDE 40 MG TABLET PO SCH (08:33)
[2018-09-21] MEDS: PREGABALIN 75 MG CAPSULE PO SCH (08:33)
[2018-09-21 10:53] VITALS: BP 162/97
[2018-09-21] MEDS: LACTATED RINGERS 1,000 ML IV SCH (11:12)
== END 2018-09-21 11:50 | disposition home or self-care (01) | DRG 638 ==
LOC: EDUNIT# → EDBD → N.ED 17:01 → N.EDINP 19:56 → SUATTDRO 19:56 → N.CC 20:23 → N.5E 09-20 13:04
PROVIDERS: ADMIT Family Medicine; ATTEND Internal Medicine

== ENCOUNTER 2019-03-22 22:45 | Inpatient (IN) ==
[2019-03-22] MEDS ORDERED: SODIUM CHLORIDE 0.9% 1,000 ML IV STA (23:43)
[2019-03-22] MEDS ORDERED: INSULIN REGULAR 100 UNIT/ML IV STA (23:44)
[2019-03-22 23:51] LABS: Basophils # 0.1 10*3/uL (0.0-0.2); Basophils % 0.9 % (0.0-0.8); Eosinophils # 0.3 10*3/uL (0.0-0.87); Eosinophils % 3.9 % (0.00-10.9); Hematocrit 40.2 VOL% (35.7-47.0); Hemoglobin 13.3 GM/DL (12.0-16.0); Immature Granulocytes % 0.2 %; Immature Granulocytes Absolute 0.02 #; Mean Corpuscular HGB Conc 33.1 GM/DL (32-36); Mean Platelet Volume 12.1 FL (9.6-12.0); Monocytes % 5.7 % (1.7-12.7); Neutrophils % 64.3 % (38.7-73.9); Platelet Count 267 T/CUMM (130-400); Red Blood Count 4.06 MC/CUMM (3.8-5.5); Red Cell Distribution Width 13.8 % (9.3-17.3); White Blood Count 8.1 T/CUMM (4-12)
[2019-03-23 00:14] LABS: Albumin 3.5 G/DL (3.4-5.0); Bilirubin,Total 0.4 MG/DL (0.2-1.0); Calcium 9.4 MG/DL (8.5-10.1); Osmolality,Calculated 301.4 MOS/KG (273-304)
[2019-03-23] MEDS ORDERED: HYDROmorphone 2 MG/1 ML VIAL IV STA (00:32)
[2019-03-23] MEDS ORDERED: ONDANSETRON 4 MG/2 ML VIAL IV STA (00:33)
[2019-03-23 01:59] LABS: Apearance,Urine CLEAR (Clear); Bilirubin,Urine Negative (Negative); Blood, Urine Small mg/dL (Negative); Glucose,Urine (UA) >=500 mg/dL (Negative); Ketones,Urine 20 mg/dL (Negative); Nitrite,Urine Negative (Negative); Protein,Urine Negative; RBC,Urine 2 /HPF (0-4); Squamous Epithelial Cell,Urine Occasional /HPF (0-10); Urine Color Straw (Yellow); Urine Specific Gravity 1.024 (1.001-1.035); Urine Urobilinogen < 2.0 EU/DL (0.2-1.0); WBC,Urine <1 /HPF (0-6)
[2019-03-23] MEDS ORDERED: ONDANSETRON 4 MG/2 ML VIAL IV PRN (02:48)
[2019-03-23] MEDS ORDERED: DOCUSATE SODIUM 100 MG CAPSULE PO PRN (02:48)
[2019-03-23] MEDS ORDERED: PROMETHAZINE 25 MG/1 ML VIAL IM PRN (02:48)
[2019-03-23] MEDS ORDERED: ZALEPLON 5 MG CAPSULE PO PRN (02:48)
[2019-03-23] MEDS ORDERED: hydrALAZINE 20 MG/1 ML VIAL IV PRN (04:15)
[2019-03-23] MEDS ORDERED: HYDROmorphone 2 MG/1 ML VIAL IV PRN (04:15)
[2019-03-23] MEDS ORDERED: ALBUTEROL/IPRATROPIUM 3 ML NEB RESP TX PRN (04:15)
[2019-03-23] MEDS: INSULIN REGULAR 100 UNIT/ML SUBCUT SCH ×7 (04:40→20:40)
[2019-03-23] MEDS: SODIUM CHLORIDE 0.9% 1,000 ML IV SCH ×3 (04:41→23:25)
[2019-03-23] MEDS: ENOXAPARIN 40 MG/0.4 ML SYRINGE SUBCUT SCH (05:56)
[2019-03-23 07:22] LABS: Basophils # 0.1 10*3/uL (0.0-0.2); Basophils % 0.7 % (0.0-0.8); Eosinophils # 0.3 10*3/uL (0.0-0.87); Eosinophils % 3.2 % (0.00-10.9); Hematocrit 38.4 VOL% (35.7-47.0); Hemoglobin 12.4 GM/DL (12.0-16.0); Immature Granulocytes % 0.2 %; Immature Granulocytes Absolute 0.02 #; Lymphocytes # 2.6 10*3/uL (1.4-4.0); Lymphocytes % 31.5 % (21.3-54.2); Mean Corpuscular HGB Conc 32.3 GM/DL (32-36); Mean Corpuscular Volume 98.7 FL (87-102); Mean Platelet Volume 11.5 FL (9.6-12.0); Neutrophils % 58.4 % (38.7-73.9); Platelet Count 258 T/CUMM (130-400); Red Blood Count 3.89 MC/CUMM (3.8-5.5); Red Cell Distribution Width 13.8 % (9.3-17.3); White Blood Count 8.3 T/CUMM (4-12)
[2019-03-23 07:48] LABS: Alanine Aminotransferase 18 U/L (13-56); Albumin 3.4 G/DL (3.4-5.0); Alkaline Phosphatase 100 U/L (45-117); Aspartate Amino Transferase 11 U/L (0-37); Bilirubin,Total < 0.39 MG/DL (0.2-1.0); Blood Urea Nitrogen 33 MG/DL (7-18); Calcium 9.3 MG/DL (8.5-10.1); Estimated Glom Filtration Rate 67 ML/MIN; Glucose 209 MG/DL (74-106); Osmolality,Calculated 289.5 MOS/KG (273-304); Total Protein 7.7 G/DL (6.4-8.3)
[2019-03-23] MEDS: PANTOPRAZOLE 40 MG TABLET PO SCH (09:17)
[2019-03-23] MEDS ORDERED: METAXALONE 800 MG TABLET PO ONE (10:29)
[2019-03-23] MEDS ORDERED: SCOPOLAMINE 1.5 MG PATCH TRANSDERM ONE (10:29)
[2019-03-23] MEDS ORDERED: PROCHLORPERAZINE 10 MG TABLET PO ONE (10:30)
[2019-03-23] MEDS ORDERED: CYCLOBENZAPRINE 10 MG TABLET PO PRN (10:31)
[2019-03-23] MEDS ORDERED: METOPROLOL TARTRATE 25 MG TABLET PO ONE (10:31)
[2019-03-23] MEDS: PREGABALIN 75 MG CAPSULE PO SCH ×2 (10:46→20:32)
[2019-03-23] MEDS: CITALOPRAM 20 MG TABLET PO SCH (10:47)
[2019-03-23] MEDS: METOCLOPRAMIDE 5 MG TABLET PO SCH ×3 (10:47→20:32)
[2019-03-23] MEDS: amLODIPine 5 MG TABLET PO SCH ×2 (10:47→20:32)
[2019-03-23] MEDS: METHOCARBAMOL 500 MG TABLET PO SCH ×2 (14:45→20:33)
[2019-03-23] MEDS: ACETAMINOPHEN 325 MG TABLET PO PRN ×2 (19:14→23:20)
[2019-03-24 05:40] LABS: Calcium 8.9 MG/DL (8.5-10.1); Osmolality,Calculated 283.7 MOS/KG (273-304)
[2019-03-24] MEDS: ENOXAPARIN 40 MG/0.4 ML SYRINGE SUBCUT SCH (05:40)
[2019-03-24] MEDS: SODIUM CHLORIDE 0.9% 1,000 ML IV SCH (06:35)
[2019-03-24 07:31] VITALS: BP 156/87
[2019-03-24] MEDS: METOCLOPRAMIDE 5 MG TABLET PO SCH (09:09)
[2019-03-24] MEDS: CITALOPRAM 20 MG TABLET PO SCH (09:09)
[2019-03-24] MEDS: PANTOPRAZOLE 40 MG TABLET PO SCH (09:09)
[2019-03-24] MEDS: amLODIPine 5 MG TABLET PO SCH (09:10)
[2019-03-24] MEDS: PREGABALIN 75 MG CAPSULE PO SCH (09:10)
[2019-03-24] MEDS: INSULIN REGULAR 100 UNIT/ML SUBCUT SCH ×2 (09:10)
[2019-03-24] MEDS ORDERED: METHOCARBAMOL 750 MG TABLET PO ONE (09:30)
[2019-03-24] MEDS: METHOCARBAMOL 500 MG TABLET PO SCH (10:18)
== END 2019-03-24 10:10 | disposition home or self-care (01) | DRG 74 ==
LOC: N.ED 22:45 → N.EDINP 03-23 02:49 → N.5E 03-23 03:53
PROVIDERS: ADMIT Internal Medicine; ATTEND Internal Medicine

== ENCOUNTER 2020-05-08 01:58 | Inpatient (IN) ==
[2020-05-08 02:33] LABS: Basophils % 0.6 % (0.0-0.8); Eosinophils # 0.3 10*3/uL (0.0-0.87); Eosinophils % 4.4 % (0.00-10.9); Hematocrit 35.1 VOL% (35.7-47.0); Hemoglobin 11.4 GM/DL (12.0-16.0); Immature Granulocytes % 0.3 %; Immature Granulocytes Absolute 0.02 #; Lymphocytes # 1.5 10*3/uL (1.4-4.0); Lymphocytes % 20.1 % (21.3-54.2); Mean Corpuscular HGB Conc 32.5 GM/DL (32-36); Mean Corpuscular Volume 100.3 FL (87-102); Mean Platelet Volume 11.9 FL (9.6-12.0); Monocytes % 5.6 % (1.7-12.7); Platelet Count 267 T/CUMM (130-400); Red Cell Distribution Width 13.3 % (9.3-17.3); White Blood Count 7.2 T/CUMM (4-12)
[2020-05-08 03:00] LABS: Alanine Aminotransferase 304 U/L (13-56); Alkaline Phosphatase 706 U/L (45-117); Aspartate Amino Transferase 664 U/L (0-37); Bilirubin,Total < 0.39 MG/DL (0.2-1.0); Blood Urea Nitrogen 25 MG/DL (7-18); Calcium 8.4 MG/DL (8.5-10.1); Estimated Glom Filtration Rate 68 ML/MIN; Glucose 338 MG/DL (74-106); Osmolality,Calculated 286.1 MOS/KG (273-304); Total Protein 6.8 G/DL (6.4-8.3)
[2020-05-08] MEDS ORDERED: SODIUM CHLORIDE 0.9% 1,000 ML IV STA (03:13)
[2020-05-08] MEDS ORDERED: ONDANSETRON 4 MG/2 ML VIAL IV ONE (03:13)
[2020-05-08] MEDS ORDERED: ACETAMINOPHEN 500 MG TABLET PO STA (03:14)
[2020-05-08 04:07] LABS: Bilirubin,Urine Negative (Negative); Blood, Urine Small mg/dL (Negative); Glucose,Urine (UA) >=500 mg/dL (Negative); Ketones,Urine Negative (Negative); Mucus,Urine Occasional /LPF (Occasional); Nitrite,Urine Negative (Negative); Protein,Urine 100 MG/DL; RBC,Urine 10 /HPF (0-4); Squamous Epithelial Cell,Urine Occasional /HPF (0-10); Urine Appearance CLEAR (Clear); Urine Color Yellow (Yellow); Urine Specific Gravity 1.027 (1.001-1.035); Urine Urobilinogen < 2.0 EU/DL (0.2-1.0); WBC,Urine 2 /HPF (0-6)
[2020-05-08 04:56] LABS: Hepatitis B Core IgM Quant 0.19 Index; Hepatitis B Surface Ag Quant < 0.10 Index; Hepatitis B Surface Ag Result Negative (Negative); Hepatitis C Virus Ab Quant 0.02 Index; Hepatitis C Virus Ab Result Negative (Negative)
[2020-05-08] MEDS ORDERED: CYCLOBENZAPRINE 10 MG TABLET PO PRN (05:50)
[2020-05-08] MEDS ORDERED: ALBUTEROL/IPRATROPIUM 3 ML NEB RESP TX PRN (05:50)
[2020-05-08] MEDS ORDERED: PROMETHAZINE 25 MG TABLET PO SCH (06:00)
[2020-05-08] MEDS ORDERED: NICOTINE 21 MG/24 HR PATCH TRANSDERM PRN (06:24)
[2020-05-08] MEDS ORDERED: guaiFENesin/DM ER 600-30 MG TABLET PO PRN (06:24)
[2020-05-08] MEDS ORDERED: ZALEPLON 5 MG CAPSULE PO PRN (06:24)
[2020-05-08] MEDS ORDERED: ALUMINUM/MAGNES/SIMETH MAX STR 30 ML UDCUP PO PRN (06:24)
[2020-05-08] MEDS ORDERED: diphenhydrAMINE CAP 25 MG CAPSULE PO PRN (06:24)
[2020-05-08] MEDS ORDERED: PROMETHAZINE 25 MG TABLET PO PRN (06:24)
[2020-05-08] MEDS ORDERED: DEXTROSE 50% 25 GM/50 ML VIAL IV PRN ×2 (06:24)
[2020-05-08] MEDS ORDERED: SIMETHICONE CHEW 125 MG TABLET PO PRN (06:24)
[2020-05-08] MEDS ORDERED: ONDANSETRON 4 MG/2 ML VIAL IV PRN (06:24)
[2020-05-08] MEDS ORDERED: GLUCAGON 1 MG VIAL IM PRN ×2 (06:24)
[2020-05-08] MEDS: SODIUM CHLORIDE 0.9% 1,000 ML IV SCH ×2 (07:13→20:56)
[2020-05-08] MEDS: LEVOFLOXACIN INJ 750 MG in PREMIX 1 EACH IV SCH (07:14)
[2020-05-08] MEDS: ENOXAPARIN 40 MG/0.4 ML SYRINGE SUBCUT SCH (07:15)
[2020-05-08] MEDS ORDERED: INSULIN GLARGINE 100 UNIT/ML SUBCUT SCH (09:00)
[2020-05-08] MEDS ORDERED: PANTOPRAZOLE 40 MG TABLET PO SCH (09:00)
[2020-05-08] MEDS: CITALOPRAM 20 MG TABLET PO SCH (11:01)
[2020-05-08] MEDS: DOCUSATE SODIUM 100 MG CAPSULE PO SCH ×2 (11:01→20:32)
[2020-05-08] MEDS: amLODIPine 5 MG TABLET PO SCH ×2 (11:02→20:32)
[2020-05-08] MEDS: PANTOPRAZOLE 40 MG TABLET PO SCH (11:02)
[2020-05-08] MEDS: PREGABALIN 75 MG CAPSULE PO SCH ×2 (11:02→20:32)
[2020-05-08] MEDS: METOCLOPRAMIDE 5 MG TABLET PO SCH ×4 (11:37→20:33)
[2020-05-08] MEDS: metroNIDAZOLE INJ 500 MG in PREMIX 1 EACH IV SCH ×3 (11:37→23:30)
[2020-05-08] MEDS: INSULIN LISPRO 100 UNIT/ML SUBCUT SCH ×4 (12:31→20:32)
[2020-05-08] MEDS: hydrALAZINE 20 MG/1 ML VIAL IV PRN (13:20)
[2020-05-08] MEDS: PROMETHAZINE 25 MG/1 ML VIAL IM PRN (14:56)
[2020-05-08] MEDS: INSULIN GLARGINE 100 UNIT/ML SUBCUT SCH (20:32)
[2020-05-08] MEDS: TEMAZEPAM 15 MG CAPSULE PO SCH (20:33)
[2020-05-08] MEDS: MORPHINE 4 MG/1 ML VIAL IV PRN (20:57)
[2020-05-09] MEDS: PROMETHAZINE 25 MG/1 ML VIAL IM PRN ×2 (00:27→09:20)
[2020-05-09] MEDS: MORPHINE 4 MG/1 ML VIAL IV PRN ×4 (04:37→17:59)
[2020-05-09] MEDS: LEVOFLOXACIN INJ 750 MG in PREMIX 1 EACH IV SCH (06:09)
[2020-05-09] MEDS: ENOXAPARIN 40 MG/0.4 ML SYRINGE SUBCUT SCH (06:10)
[2020-05-09 07:17] LABS: Basophils % 0.7 % (0.0-0.8); Eosinophils # 0.3 10*3/uL (0.0-0.87); Eosinophils % 5.3 % (0.00-10.9); Hematocrit 32.6 VOL% (35.7-47.0); Hemoglobin 10.5 GM/DL (12.0-16.0); Immature Granulocytes % 0.3 %; Immature Granulocytes Absolute 0.02 #; Lymphocytes # 1.4 10*3/uL (1.4-4.0); Lymphocytes % 23.9 % (21.3-54.2); Mean Corpuscular HGB Conc 32.2 GM/DL (32-36); Mean Corpuscular Volume 101.2 FL (87-102); Mean Platelet Volume 11.9 FL (9.6-12.0); Monocytes % 7.7 % (1.7-12.7); Neutrophils % 62.1 % (38.7-73.9); Platelet Count 246 T/CUMM (130-400); Red Blood Count 3.22 MC/CUMM (3.8-5.5); Red Cell Distribution Width 13.5 % (9.3-17.3); White Blood Count 5.9 T/CUMM (4-12)
[2020-05-09 07:38] LABS: Alanine Aminotransferase 280 U/L (13-56); Albumin 1.8 G/DL (3.4-5.0); Alkaline Phosphatase 620 U/L (45-117); Aspartate Amino Transferase 252 U/L (0-37); Bilirubin,Total < 0.39 MG/DL (0.2-1.0); Blood Urea Nitrogen 18 MG/DL (7-18); Calcium 8.2 MG/DL (8.5-10.1); Estimated Glom Filtration Rate 85 ML/MIN; Glucose 177 MG/DL (74-106); Osmolality,Calculated 284.4 MOS/KG (273-304); Total Protein 6.3 G/DL (6.4-8.3)
[2020-05-09 07:39] LABS: Alanine Aminotransferase 283 U/L (13-56); Albumin 1.8 G/DL (3.4-5.0); Alkaline Phosphatase 631 U/L (45-117); Aspartate Amino Transferase 259 U/L (0-37); Bilirubin,Direct < 0.100 MG/DL (0.0-0.20); Bilirubin,Indirect 0.3 MG/DL (0.0-1.0); Blood Urea Nitrogen 19 MG/DL (7-18); Estimated Glom Filtration Rate 85 ML/MIN; Glucose 172 MG/DL (74-106); Osmolality,Calculated 286.3 MOS/KG (273-304); Total Protein 5.7 G/DL (6.4-8.3)
[2020-05-09] MEDS: INSULIN LISPRO 100 UNIT/ML SUBCUT SCH ×3 (09:19→17:54)
[2020-05-09] MEDS: METOCLOPRAMIDE 5 MG TABLET PO SCH ×3 (09:23→16:10)
[2020-05-09] MEDS: lisinopriL 20 MG TABLET PO SCH (09:23)
[2020-05-09] MEDS: CITALOPRAM 20 MG TABLET PO SCH (09:23)
[2020-05-09] MEDS: amLODIPine 5 MG TABLET PO SCH (09:23)
[2020-05-09] MEDS: PREGABALIN 75 MG CAPSULE PO SCH (09:23)
[2020-05-09] MEDS: PANTOPRAZOLE 40 MG TABLET PO SCH (09:24)
[2020-05-09] MEDS: DOCUSATE SODIUM 100 MG CAPSULE PO SCH (09:24)
[2020-05-09] MEDS: metroNIDAZOLE INJ 500 MG in PREMIX 1 EACH IV SCH ×2 (09:25→16:09)
[2020-05-09] MEDS: SODIUM CHLORIDE 0.9% 1,000 ML IV SCH (12:36)
[2020-05-10] MEDS: metroNIDAZOLE INJ 500 MG in PREMIX 1 EACH IV SCH ×2 (02:02→08:49)
[2020-05-10] MEDS: DOCUSATE SODIUM 100 MG CAPSULE PO SCH ×3 (02:08→20:18)
[2020-05-10] MEDS: INSULIN GLARGINE 100 UNIT/ML SUBCUT SCH ×2 (02:09→21:57)
[2020-05-10] MEDS: INSULIN LISPRO 100 UNIT/ML SUBCUT SCH ×5 (02:09→21:57)
[2020-05-10] MEDS: amLODIPine 5 MG TABLET PO SCH ×2 (02:10→08:51)
[2020-05-10] MEDS: PREGABALIN 75 MG CAPSULE PO SCH ×3 (02:10→20:18)
[2020-05-10] MEDS: TEMAZEPAM 15 MG CAPSULE PO SCH ×2 (02:11→20:18)
[2020-05-10] MEDS: METOCLOPRAMIDE 5 MG TABLET PO SCH ×5 (02:11→20:18)
[2020-05-10] MEDS: SODIUM CHLORIDE 0.9% 1,000 ML IV SCH ×4 (02:16→22:12)
[2020-05-10] MEDS: MORPHINE 4 MG/1 ML VIAL IV PRN ×3 (05:31→21:57)
[2020-05-10] MEDS: LEVOFLOXACIN INJ 750 MG in PREMIX 1 EACH IV SCH (06:02)
[2020-05-10] MEDS: hydrALAZINE 20 MG/1 ML VIAL IV PRN (06:02)
[2020-05-10 06:03] LABS: Basophils % 0.4 % (0.0-0.8); Eosinophils # 0.3 10*3/uL (0.0-0.87); Eosinophils % 4.6 % (0.00-10.9); Hematocrit 32.4 VOL% (35.7-47.0); Hemoglobin 10.5 GM/DL (12.0-16.0); Immature Granulocytes % 0.3 %; Immature Granulocytes Absolute 0.02 #; Lymphocytes # 1.4 10*3/uL (1.4-4.0); Lymphocytes % 20.1 % (21.3-54.2); Mean Corpuscular HGB Conc 32.4 GM/DL (32-36); Monocytes % 7.4 % (1.7-12.7); Neutrophils % 67.2 % (38.7-73.9); Platelet Count 249 T/CUMM (130-400); Red Blood Count 3.24 MC/CUMM (3.8-5.5); Red Cell Distribution Width 13.6 % (9.3-17.3); White Blood Count 6.8 T/CUMM (4-12)
[2020-05-10] MEDS: ENOXAPARIN 40 MG/0.4 ML SYRINGE SUBCUT SCH (06:03)
[2020-05-10 06:16] LABS: Calcium 8.3 MG/DL (8.5-10.1); Osmolality,Calculated 282.5 MOS/KG (273-304)
[2020-05-10] MEDS: lisinopriL 20 MG TABLET PO SCH (08:50)
[2020-05-10] MEDS: CITALOPRAM 20 MG TABLET PO SCH (08:50)
[2020-05-10] MEDS: PANTOPRAZOLE 40 MG TABLET PO SCH (08:51)
[2020-05-10] MEDS ORDERED: amLODIPine 5 MG TABLET PO ONE (09:30)
[2020-05-10] MEDS: PROMETHAZINE 25 MG/1 ML VIAL IM PRN (10:18)
[2020-05-10] MEDS: LACTULOSE 20 GM/30 ML UDCUP PO SCH ×2 (10:36→20:18)
[2020-05-10] MEDS: PANTOPRAZOLE 40 MG VIAL IV SCH (11:21)
[2020-05-11] MEDS: MORPHINE 4 MG/1 ML VIAL IV PRN ×4 (02:36→20:32)
[2020-05-11] MEDS: ENOXAPARIN 40 MG/0.4 ML SYRINGE SUBCUT SCH (05:58)
[2020-05-11] MEDS: lisinopriL 20 MG TABLET PO SCH (09:31)
[2020-05-11] MEDS: amLODIPine 10 MG TABLET PO SCH (09:31)
[2020-05-11] MEDS: PROMETHAZINE 25 MG/1 ML VIAL IM PRN (09:40)
[2020-05-11] MEDS: LACTATED RINGERS 1,000 ML IV SCH (10:11)
[2020-05-11] MEDS ORDERED: ONDANSETRON 4 MG/2 ML VIAL ONE (11:11)
[2020-05-11] MEDS ORDERED: propofoL 200 MG/20 ML VIAL IV ONE (11:11)
[2020-05-11] MEDS ORDERED: LIDOCAINE 2% 5 ML VIAL ONE (11:11)
[2020-05-11] MEDS ORDERED: PANTOPRAZOLE 40 MG VIAL IV SCH (11:30)
[2020-05-11] MEDS ORDERED: DEXTROSE 50% 25 GM/50 ML VIAL IV PRN (13:17)
[2020-05-11] MEDS: INSULIN LISPRO 100 UNIT/ML SUBCUT SCH ×4 (17:04→20:33)
[2020-05-11] MEDS: LACTULOSE 20 GM/30 ML UDCUP PO SCH ×2 (17:06→20:32)
[2020-05-11] MEDS: METOCLOPRAMIDE 5 MG TABLET PO SCH ×3 (17:06→20:34)
[2020-05-11] MEDS: CITALOPRAM 20 MG TABLET PO SCH (17:06)
[2020-05-11] MEDS: PREGABALIN 75 MG CAPSULE PO SCH ×2 (17:07→20:32)
[2020-05-11] MEDS: SODIUM CHLORIDE 0.9% 1,000 ML IV SCH (17:07)
[2020-05-11] MEDS: DOCUSATE SODIUM 100 MG CAPSULE PO SCH ×2 (17:07→20:33)
[2020-05-11] MEDS: TEMAZEPAM 15 MG CAPSULE PO SCH (20:32)
[2020-05-11] MEDS: PANTOPRAZOLE 40 MG VIAL IV SCH (20:33)
[2020-05-11] MEDS: INSULIN GLARGINE 100 UNIT/ML SUBCUT SCH (20:34)
[2020-05-12] MEDS: SODIUM CHLORIDE 0.9% 1,000 ML IV SCH ×2 (00:17→16:23)
[2020-05-12] MEDS: MORPHINE 4 MG/1 ML VIAL IV PRN ×3 (02:05→11:46)
[2020-05-12] MEDS: ENOXAPARIN 40 MG/0.4 ML SYRINGE SUBCUT SCH (05:36)
[2020-05-12 05:50] LABS: Basophils # 0.1 10*3/uL (0.0-0.2); Basophils % 0.7 % (0.0-0.8); Eosinophils # 0.3 10*3/uL (0.0-0.87); Eosinophils % 4.6 % (0.00-10.9); Hematocrit 32.7 VOL% (35.7-47.0); Hemoglobin 10.6 GM/DL (12.0-16.0); Immature Granulocytes % 0.3 %; Immature Granulocytes Absolute 0.02 #; Lymphocytes # 2.3 10*3/uL (1.4-4.0); Lymphocytes % 33.3 % (21.3-54.2); Mean Corpuscular HGB Conc 32.4 GM/DL (32-36); Mean Corpuscular Volume 99.7 FL (87-102); Mean Platelet Volume 11.8 FL (9.6-12.0); Neutrophils % 53.1 % (38.7-73.9); Platelet Count 260 T/CUMM (130-400); Red Blood Count 3.28 MC/CUMM (3.8-5.5); Red Cell Distribution Width 13.5 % (9.3-17.3)
[2020-05-12] MEDS: PANTOPRAZOLE 40 MG VIAL IV SCH ×2 (05:55→09:50)
[2020-05-12 06:12] LABS: Hypochromasia Slight; Microcytosis Slight; Platelet Estimate Normal
[2020-05-12 06:26] LABS: Albumin 1.9 G/DL (3.4-5.0); Bilirubin,Total 0.9 MG/DL (0.2-1.0); Calcium 8.6 MG/DL (8.5-10.1); Osmolality,Calculated 283.4 MOS/KG (273-304); Total Protein 6.4 G/DL (6.4-8.3)
[2020-05-12] MEDS: METOCLOPRAMIDE 5 MG TABLET PO SCH ×3 (07:41→16:24)
[2020-05-12] MEDS: LACTATED RINGERS 1,000 ML IV SCH (08:16)
[2020-05-12] MEDS: DOCUSATE SODIUM 100 MG CAPSULE PO SCH (09:50)
[2020-05-12] MEDS: LACTULOSE 20 GM/30 ML UDCUP PO SCH (09:50)
[2020-05-12] MEDS: INSULIN LISPRO 100 UNIT/ML SUBCUT SCH ×3 (09:50→16:23)
[2020-05-12] MEDS: PREGABALIN 75 MG CAPSULE PO SCH (09:50)
[2020-05-12] MEDS: lisinopriL 20 MG TABLET PO SCH (09:50)
[2020-05-12] MEDS: amLODIPine 10 MG TABLET PO SCH (09:50)
[2020-05-12] MEDS: CITALOPRAM 20 MG TABLET PO SCH (09:50)
[2020-05-12 15:49] VITALS: BP 174/82
== END 2020-05-12 16:25 | disposition home or self-care (01) | DRG 392 ==
LOC: N.ED 01:58 → N.EDINP 01:58 → SUATTDRO 06:24 → N.3E 07:18 → SUATTDRO 05-10 09:06
PROVIDERS: ADMIT Internal Medicine; ATTEND Internal Medicine

== ENCOUNTER 2020-07-05 03:03 | Observation (INO) ==
[2020-07-05] MEDS ORDERED: ALUM/MAG/SIMETH/LIDO VISC 1:1 30 ML BOTTLE PO STA (03:27)
[2020-07-05] MEDS ORDERED: MORPHINE 4 MG/1 ML VIAL IV STA (03:27)
[2020-07-05] MEDS ORDERED: ONDANSETRON 4 MG/2 ML VIAL IV STA (03:27)
[2020-07-05] MEDS ORDERED: NITROGLYCERIN 2% OINT 1 INCH/GM PACK TOP STA (03:27)
[2020-07-05] MEDS ORDERED: hydrALAZINE 20 MG/1 ML VIAL IV STA (03:57)
[2020-07-05 04:07] LABS: Basophils # 0.1 10*3/uL (0.0-0.2); Basophils % 0.8 % (0.0-0.8); Eosinophils # 0.5 10*3/uL (0.0-0.87); Eosinophils % 5.4 % (0.00-10.9); Hematocrit 32.7 VOL% (35.7-47.0); Hemoglobin 10.4 GM/DL (12.0-16.0); Immature Granulocytes % 0.3 %; Immature Granulocytes Absolute 0.03 #; Lymphocytes # 1.8 10*3/uL (1.4-4.0); Lymphocytes % 19.7 % (21.3-54.2); Mean Corpuscular HGB Conc 31.8 GM/DL (32-36); Mean Platelet Volume 12.6 FL (9.6-12.0); Monocytes % 7.6 % (1.7-12.7); Neutrophils % 66.2 % (38.7-73.9); Platelet Count 213 T/CUMM (130-400); Red Blood Count 3.27 MC/CUMM (3.8-5.5); Red Cell Distribution Width 17.2 % (9.3-17.3); White Blood Count 9.1 T/CUMM (4-12)
[2020-07-05 04:15] LABS: Bilirubin,Urine Negative (Negative); Blood, Urine Small mg/dL (Negative); Glucose,Urine (UA) Negative (Negative); Ketones,Urine Negative (Negative); Nitrite,Urine Negative (Negative); Protein,Urine >=500 MG/DL; Urine Appearance CLOUDY (Clear); Urine Specific Gravity 1.027 (1.001-1.035)
[2020-07-05 04:25] LABS: Amorphous Crystals,Urine Rare /HPF (Few); Squamous Epithelial Cell,Urine Moderate /HPF (0-10); Urine Color Yellow (Yellow); WBC,Urine 0.1 /HPF (0-6)
[2020-07-05 04:26] LABS: INR 0.9; PT Patient Result 9.9 SECS (9.8-11.9)
[2020-07-05 04:28] LABS: Hypochromasia 1+
[2020-07-05 04:29] LABS: Anisocytosis 1+; Macrocytosis 1+; Platelet Estimate Normal
[2020-07-05 04:47] LABS: Barbiturates Screen,Urine Negative (Negative); Benzodiazepines Screen,Urine Negative (Negative); Cannabinoid Screen,Urine Negative (Negative); Opiate Screen,Urine Positive (Negative); Phencyclidine Screen,Urine Negative (Negative)
[2020-07-05 05:01] LABS: Albumin 2.1 G/DL (3.4-5.0); Bilirubin,Total 1.2 MG/DL (0.2-1.0); Calcium 8.2 MG/DL (8.5-10.1); Osmolality,Calculated 276.4 MOS/KG (273-304); Potassium 3.4 MMOL/L (3.5-5.1); Total Protein 6.2 G/DL (6.4-8.3)
[2020-07-05] MEDS ORDERED: DEXTROSE 50% 25 GM/50 ML SYRINGE IV ONE (05:09)
[2020-07-05] MEDS ORDERED: DEXTROSE 50% 25 GM/50 ML VIAL IV STA (05:12)
[2020-07-05] MEDS ORDERED: DEXTROSE 50% 25 GM/50 ML VIAL IV PRN (05:51)
[2020-07-05] MEDS ORDERED: GLUCAGON 1 MG VIAL IM PRN (05:51)
[2020-07-05] MEDS ORDERED: ACETAMINOPHEN 325 MG TABLET PO PRN (05:51)
[2020-07-05] MEDS ORDERED: POTASSIUM CHLORIDE 20 MEQ TABLET PO STA (06:00)
[2020-07-05] MEDS: NITROGLYCERIN 2% OINT 1 INCH/GM PACK TOP SCH ×3 (06:08→20:35)
[2020-07-05] MEDS: INSULIN REGULAR 100 UNIT/ML SUBCUT SCH ×4 (07:55→20:35)
[2020-07-05] MEDS: MORPHINE 4 MG/1 ML VIAL IV PRN ×4 (08:05→23:15)
[2020-07-05] MEDS: ENOXAPARIN 40 MG/0.4 ML SYRINGE SUBCUT SCH (08:45)
[2020-07-05] MEDS ORDERED: PANTOPRAZOLE 40 MG TABLET PO SCH (09:00)
[2020-07-05] MEDS: lisinopriL 20 MG TABLET PO SCH (10:40)
[2020-07-05] MEDS ORDERED: ALUM/MAG/SIMETH/LIDO VISC 1:1 30 ML BOTTLE PO ONE (17:31)
[2020-07-05] MEDS: ONDANSETRON 4 MG/2 ML VIAL IV PRN ×2 (17:41→20:46)
[2020-07-05] MEDS: PANTOPRAZOLE 40 MG TABLET PO SCH (20:46)
[2020-07-06] MEDS: NITROGLYCERIN 2% OINT 1 INCH/GM PACK TOP SCH ×2 (00:04→05:07)
[2020-07-06 04:01] LABS: Basophils # 0.1 10*3/uL (0.0-0.2); Basophils % 0.8 % (0.0-0.8); Eosinophils # 0.5 10*3/uL (0.0-0.87); Eosinophils % 6.9 % (0.00-10.9); Hematocrit 31.8 VOL% (35.7-47.0); Hemoglobin 10.6 GM/DL (12.0-16.0); Immature Granulocytes % 0.3 %; Immature Granulocytes Absolute 0.02 #; Lymphocytes # 1.4 10*3/uL (1.4-4.0); Lymphocytes % 18.4 % (21.3-54.2); Mean Corpuscular HGB Conc 33.3 GM/DL (32-36); Mean Corpuscular Volume 97.8 FL (87-102); Mean Platelet Volume 13.4 FL (9.6-12.0); Monocytes % 7.5 % (1.7-12.7); Neutrophils % 66.1 % (38.7-73.9); Platelet Count 196 T/CUMM (130-400); Red Blood Count 3.25 MC/CUMM (3.8-5.5); Red Cell Distribution Width 16.9 % (9.3-17.3); White Blood Count 7.5 T/CUMM (4-12)
[2020-07-06] MEDS: MORPHINE 4 MG/1 ML VIAL IV PRN ×5 (04:04→21:35)
[2020-07-06 04:36] LABS: Albumin 2.1 G/DL (3.4-5.0); Bilirubin,Total 0.7 MG/DL (0.2-1.0); Calcium 8.6 MG/DL (8.5-10.1); Osmolality,Calculated 284.3 MOS/KG (273-304); Potassium 4.2 MMOL/L (3.5-5.1); Total Protein 6.8 G/DL (6.4-8.3)
[2020-07-06] MEDS: lisinopriL 20 MG TABLET PO SCH (09:24)
[2020-07-06] MEDS: ENOXAPARIN 40 MG/0.4 ML SYRINGE SUBCUT SCH (09:24)
[2020-07-06] MEDS: PANTOPRAZOLE 40 MG TABLET PO SCH ×2 (09:24→21:35)
[2020-07-06] MEDS: INSULIN REGULAR 100 UNIT/ML SUBCUT SCH ×4 (09:25→21:34)
[2020-07-06] MEDS: carvediloL 3.125 MG TABLET PO SCH ×2 (10:13→16:19)
[2020-07-06] MEDS: hydrALAZINE 20 MG/1 ML VIAL IV PRN ×2 (12:35→16:19)
[2020-07-06] MEDS: METOCLOPRAMIDE 10 MG/10 ML UDCUP PO SCH ×2 (16:19→21:35)
[2020-07-06] MEDS ORDERED: INSULIN GLARGINE 100 UNIT/ML SUBCUT SCH (21:00)
[2020-07-06] MEDS: carvediloL 6.25 MG TABLET PO SCH (21:34)
[2020-07-06] MEDS: ONDANSETRON 4 MG/2 ML VIAL IV PRN (21:36)
[2020-07-07] MEDS: MORPHINE 4 MG/1 ML VIAL IV PRN (02:43)
[2020-07-07 05:58] LABS: Basophils # 0.1 10*3/uL (0.0-0.2); Basophils % 0.9 % (0.0-0.8); Eosinophils # 0.3 10*3/uL (0.0-0.87); Eosinophils % 3.4 % (0.00-10.9); Hematocrit 33.8 VOL% (35.7-47.0); Hemoglobin 10.4 GM/DL (12.0-16.0); Immature Granulocytes % 0.4 %; Immature Granulocytes Absolute 0.03 #; Lymphocytes # 1.1 10*3/uL (1.4-4.0); Lymphocytes % 14.1 % (21.3-54.2); Mean Corpuscular HGB Conc 30.8 GM/DL (32-36); Mean Corpuscular Volume 103.7 FL (87-102); Mean Platelet Volume 13.1 FL (9.6-12.0); Monocytes % 6.4 % (1.7-12.7); Neutrophils % 74.8 % (38.7-73.9); Platelet Count 229 T/CUMM (130-400); Red Blood Count 3.26 MC/CUMM (3.8-5.5); Red Cell Distribution Width 15.9 % (9.3-17.3); White Blood Count 7.6 T/CUMM (4-12)
[2020-07-07 06:23] LABS: Hypochromasia 2+; Macrocytosis 1+; Platelet Estimate Normal
[2020-07-07 06:35] LABS: Albumin 1.9 G/DL (3.4-5.0); Bilirubin,Direct 0.29 MG/DL (0.0-0.20); Bilirubin,Indirect 0.3 MG/DL (0.0-1.0); Bilirubin,Total 0.6 MG/DL (0.2-1.0); Calcium 8.8 MG/DL (8.5-10.1); Potassium 4.4 MMOL/L (3.5-5.1); Total Protein 6.8 G/DL (6.4-8.3)
[2020-07-07] MEDS ORDERED: GABAPENTIN 100 MG CAPSULE PO SCH (09:00)
[2020-07-07] MEDS: PANTOPRAZOLE 40 MG TABLET PO SCH (09:24)
[2020-07-07] MEDS: METOCLOPRAMIDE 10 MG/10 ML UDCUP PO SCH ×2 (09:24→12:48)
[2020-07-07] MEDS: lisinopriL 20 MG TABLET PO SCH (09:24)
[2020-07-07] MEDS: carvediloL 6.25 MG TABLET PO SCH (09:25)
[2020-07-07] MEDS: INSULIN REGULAR 100 UNIT/ML SUBCUT SCH ×2 (09:25→12:48)
[2020-07-07] MEDS: ENOXAPARIN 40 MG/0.4 ML SYRINGE SUBCUT SCH (09:26)
[2020-07-07 12:12] VITALS: BP 128/70
== END 2020-07-07 14:48 | disposition home or self-care (01) ==
LOC: N.ED 03:03 → N.EDINP 03:03 → N.5E 15:50
PROVIDERS: ADMIT Internal Medicine; ATTEND Internal Medicine

== ENCOUNTER 2020-07-23 00:27 | Inpatient (IN) ==
[2020-07-23] MEDS ORDERED: SODIUM CHLORIDE 0.9% 1,000 ML IV STA ×2 (01:11→01:59)
[2020-07-23 01:43] LABS: Basophils # 0.1 10*3/uL (0.0-0.2); Basophils % 0.9 % (0.0-0.8); Eosinophils # 0.1 10*3/uL (0.0-0.87); Hematocrit 37.8 VOL% (35.7-47.0); Hemoglobin 11.2 GM/DL (12.0-16.0); Immature Granulocytes % 0.9 %; Immature Granulocytes Absolute 0.09 #; Lymphocytes # 1.1 10*3/uL (1.4-4.0); Mean Corpuscular HGB Conc 29.6 GM/DL (32-36); Mean Corpuscular Volume 110.5 FL (87-102); Mean Platelet Volume 13.5 FL (9.6-12.0); Monocytes % 4.5 % (1.7-12.7); Neutrophils % 82.7 % (38.7-73.9); Platelet Count 270 T/CUMM (130-400); Red Blood Count 3.42 MC/CUMM (3.8-5.5); Red Cell Distribution Width 14.6 % (9.3-17.3); White Blood Count 10.6 T/CUMM (4-12)
[2020-07-23 01:49] LABS: Bilirubin,Total 0.9 MG/DL (0.2-1.0); Calcium 8.6 MG/DL (8.5-10.1); Osmolality,Calculated 302.1 MOS/KG (273-304); Total Protein 7.6 G/DL (6.4-8.3)
[2020-07-23 01:56] LABS: Potassium 6.5 MMOL/L (3.5-5.1)
[2020-07-23] MEDS ORDERED: INSULIN REGULAR 100 UNIT/ML IV ONE (01:59)
[2020-07-23 02:00] LABS: ABG Base Excess -18.2 MMOL/L (-2.5-2.5); ABG HCO3 10.6 MMOL/L (20-26); ABG Oxygen Saturation 70.4 % (95-100); ABG PCO2 25.4 MM HG (35-48); ABG PO2 44.6 MM HG (80-95); ABG TCO2 8.7 MMOL/L (23-27)
[2020-07-23] MEDS ORDERED: SODIUM POLYSTYRENE SULFATE 15 GM/60 ML BOTTLE PO STA (02:00)
[2020-07-23] MEDS ORDERED: SODIUM BICARBONATE 50 MEQ/50 ML VIAL IV STA (02:00)
[2020-07-23 02:01] LABS: ABG PH 7.171 (7.35-7.45)
[2020-07-23] MEDS ORDERED: MAGNESIUM SULF RIDER 4 GM in PREMIX 1 EACH IV PRN (02:05)
[2020-07-23] MEDS ORDERED: SODIUM BICARB INJ 100 MEQ in STERILE WATER INJ 400 ML IV PRN (02:05)
[2020-07-23] MEDS ORDERED: MAGNESIUM SULF RIDER 2 GM in PREMIX 1 EACH IV PRN (02:05)
[2020-07-23] MEDS ORDERED: SODIUM PHOSPHATE INJ 17.5 MMOL in SODIUM CHLORIDE 0.9% 250 ML IV PRN (02:05)
[2020-07-23] MEDS ORDERED: DEXTROSE 50% 25 GM/50 ML VIAL IV PRN ×2 (02:05)
[2020-07-23] MEDS ORDERED: POTASSIUM CHLORIDE RIDER 10 MEQ in PREMIX 1 EACH IV PRN (02:05)
[2020-07-23 02:08] LABS: Bilirubin,Urine Negative (Negative); Blood, Urine Small mg/dL (Negative); Glucose,Urine (UA) >=500 mg/dL (Negative); Ketones,Urine 20 mg/dL (Negative); Nitrite,Urine Negative (Negative); Protein,Urine 100 MG/DL; RBC,Urine 3 /HPF (0-4); Squamous Epithelial Cell,Urine Many /HPF (0-10); Urine Appearance CLOUDY (Clear); Urine Color Yellow (Yellow); Urine Specific Gravity 1.022 (1.001-1.035); Urine Urobilinogen < 2.0 EU/DL (0.2-1.0); WBC,Urine 4 /HPF (0-6)
[2020-07-23] MEDS ORDERED: ALBUTEROL 2.5 MG/3 ML NEB RESP TX PRN (02:13)
[2020-07-23] MEDS ORDERED: DOCUSATE SODIUM 100 MG CAPSULE PO PRN (02:13)
[2020-07-23] MEDS ORDERED: PROMETHAZINE 25 MG/1 ML VIAL IV PRN (02:13)
[2020-07-23] MEDS ORDERED: PROMETHAZINE 25 MG/1 ML VIAL IM PRN (02:28)
[2020-07-23] MEDS ORDERED: MORPHINE 4 MG/1 ML VIAL ONE (02:42)
[2020-07-23] MEDS ORDERED: MORPHINE 4 MG/1 ML VIAL IV ONE ×2 (02:43→08:13)
[2020-07-23] MEDS: PANTOPRAZOLE 40 MG VIAL IV SCH ×2 (03:07→08:12)
[2020-07-23] MEDS: INSULIN REGULAR DRIP 100 ML IV SCH (03:11)
[2020-07-23] MEDS: SODIUM CHLORIDE 0.9% 1,000 ML IV SCH ×5 (03:54→20:47)
[2020-07-23] MEDS ORDERED: HYDROmorphone 2 MG/1 ML VIAL IV ONE (04:13)
[2020-07-23 04:19] LABS: Basophils # 0.1 10*3/uL (0.0-0.2); Basophils % 0.7 % (0.0-0.8); Eosinophils % 0.4 % (0.00-10.9); Hematocrit 30.2 VOL% (35.7-47.0); Hemoglobin 9.2 GM/DL (12.0-16.0); Immature Granulocytes % 0.5 %; Immature Granulocytes Absolute 0.05 #; Lymphocytes # 1.2 10*3/uL (1.4-4.0); Lymphocytes % 12.6 % (21.3-54.2); Mean Corpuscular HGB Conc 30.5 GM/DL (32-36); Mean Corpuscular Volume 107.5 FL (87-102); Mean Platelet Volume 12.9 FL (9.6-12.0); Monocytes % 5.8 % (1.7-12.7); Platelet Count 227 T/CUMM (130-400); Red Blood Count 2.81 MC/CUMM (3.8-5.5); Red Cell Distribution Width 14.1 % (9.3-17.3); White Blood Count 9.4 T/CUMM (4-12)
[2020-07-23 04:37] LABS: INR 0.9; PT Patient Result 10.2 SECS (9.8-11.9)
[2020-07-23 05:05] LABS: Albumin 1.7 G/DL (3.4-5.0); Bilirubin,Total 0.6 MG/DL (0.2-1.0); Calcium 7.5 MG/DL (8.5-10.1); Osmolality,Calculated 304.9 MOS/KG (273-304); Potassium 4.6 MMOL/L (3.5-5.1); Total Protein 6.2 G/DL (6.4-8.3)
[2020-07-23] MEDS ORDERED: SODIUM CHLORIDE 0.9% 1,000 ML IV SCH (07:05)
[2020-07-23 07:59] LABS: Calcium 7.2 MG/DL (8.5-10.1); Osmolality,Calculated 299.5 MOS/KG (273-304); Potassium 4.7 MMOL/L (3.5-5.1)
[2020-07-23] MEDS ORDERED: ENOXAPARIN 40 MG/0.4 ML SYRINGE SUBCUT SCH (08:00)
[2020-07-23] MEDS: METOCLOPRAMIDE 10 MG/2 ML VIAL IV SCH ×4 (08:12→20:46)
[2020-07-23 10:41] LABS: Calcium 6.6 MG/DL (8.5-10.1); Osmolality,Calculated 293.2 MOS/KG (273-304); Potassium 4.4 MMOL/L (3.5-5.1)
[2020-07-23] MEDS ORDERED: ASPIRIN CHEW 81 MG TABLET PO ONE (10:43)
[2020-07-23 11:11] LABS: Risk Ratio 5.78; VLDL CHOLESTEROL 46.4 MG/DL
[2020-07-23] MEDS: NITROGLYCERIN SL 0.4 MG TABLET SL PRN ×3 (11:45→11:55)
[2020-07-23] MEDS: LIDOCAINE 5% PATCH TRANSDERM SCH (14:12)
[2020-07-23 14:50] LABS: Calcium 6.6 MG/DL (8.5-10.1); Potassium 4.4 MMOL/L (3.5-5.1)
[2020-07-23 14:51] LABS: Barbiturates Screen,Urine Negative (Negative); Benzodiazepines Screen,Urine Negative (Negative); Cannabinoid Screen,Urine Negative (Negative); Opiate Screen,Urine Positive (Negative); Phencyclidine Screen,Urine Negative (Negative)
[2020-07-23] MEDS: ENOXAPARIN 80 MG/0.8 ML SYRINGE SUBCUT SCH (16:06)
[2020-07-23] MEDS: carvediloL 6.25 MG TABLET PO SCH (16:06)
[2020-07-23 17:50] LABS: Calcium 6.9 MG/DL (8.5-10.1); Osmolality,Calculated 291.5 MOS/KG (273-304); Potassium 4.5 MMOL/L (3.5-5.1)
[2020-07-23] MEDS: DEXT 5% NACL 0.45% KCL 20 MEQ 20 MEQ/1,000 ML BAG IV SCH (18:00)
[2020-07-23] MEDS: SODIUM CHLORIDE 0.45% 1,000 ML IV SCH (20:37)
[2020-07-23] MEDS: PANTOPRAZOLE 40 MG TABLET PO SCH (20:45)
[2020-07-23 22:09] LABS: Osmolality,Calculated 287.5 MOS/KG (273-304); Potassium 4.1 MMOL/L (3.5-5.1)
[2020-07-24] MEDS: DEXT 5% NACL 0.45% KCL 20 MEQ 20 MEQ/1,000 ML BAG IV SCH ×4 (00:30→09:04)
[2020-07-24] MEDS: SODIUM CHLORIDE 0.9% 1,000 ML IV SCH ×4 (01:00→13:51)
[2020-07-24 02:28] LABS: Calcium 7.2 MG/DL (8.5-10.1); Osmolality,Calculated 287.3 MOS/KG (273-304); Potassium 4.1 MMOL/L (3.5-5.1)
[2020-07-24 04:02] LABS: Basophils # 0.1 10*3/uL (0.0-0.2); Basophils % 0.8 % (0.0-0.8); Eosinophils # 0.5 10*3/uL (0.0-0.87); Eosinophils % 5.6 % (0.00-10.9); Hematocrit 24.7 VOL% (35.7-47.0); Hemoglobin 7.9 GM/DL (12.0-16.0); Immature Granulocytes % 0.2 %; Immature Granulocytes Absolute 0.02 #; Lymphocytes # 2.8 10*3/uL (1.4-4.0); Lymphocytes % 31.7 % (21.3-54.2); Mean Corpuscular Volume 102.5 FL (87-102); Mean Platelet Volume 12.1 FL (9.6-12.0); Monocytes % 6.1 % (1.7-12.7); Neutrophils % 55.6 % (38.7-73.9); Platelet Count 207 T/CUMM (130-400); Red Blood Count 2.41 MC/CUMM (3.8-5.5); Red Cell Distribution Width 14.4 % (9.3-17.3); White Blood Count 8.7 T/CUMM (4-12)
[2020-07-24] MEDS: INSULIN REGULAR DRIP 100 ML IV SCH (04:08)
[2020-07-24 04:13] LABS: Alanine Aminotransferase 88 U/L (13-56); Albumin 1.4 G/DL (3.4-5.0); Alkaline Phosphatase 964 U/L (45-117); Aspartate Amino Transferase 33 U/L (0-37); Bilirubin,Total < 0.39 MG/DL (0.2-1.0); Blood Urea Nitrogen 31 MG/DL (7-18); Calcium 7.1 MG/DL (8.5-10.1); Carbon Dioxide 18 MMOL/L (21-32); Estimated Glom Filtration Rate 71 ML/MIN; Glucose 126 MG/DL (74-106); Osmolality,Calculated 287.4 MOS/KG (273-304); Potassium 4.2 MMOL/L (3.5-5.1); Sodium 140 MMOL/L (136-145); Total Protein 5.3 G/DL (6.4-8.3)
[2020-07-24] MEDS: ENOXAPARIN 80 MG/0.8 ML SYRINGE SUBCUT SCH ×2 (04:23→16:11)
[2020-07-24] MEDS: SODIUM CHLORIDE 0.45% 1,000 ML IV SCH ×2 (04:38→13:42)
[2020-07-24 05:09] LABS: Eosinophils 6 % (0-10); Lymphocytes 40 % (20-55); Segmented Neutrophils 53 % (50-85); Total Cells Counted 100
[2020-07-24 05:10] LABS: Atypical Lymphocytes Few; Microcytosis 1+
[2020-07-24 05:11] LABS: Platelet Estimate Adequate; Schistocytes Few; Spherocytes Few
[2020-07-24 07:16] LABS: Calcium 7.3 MG/DL (8.5-10.1); Osmolality,Calculated 285.4 MOS/KG (273-304); Potassium 4.3 MMOL/L (3.5-5.1)
[2020-07-24] MEDS: METOCLOPRAMIDE 10 MG/2 ML VIAL IV SCH (08:44)
[2020-07-24] MEDS: LIDOCAINE 5% PATCH TRANSDERM SCH (08:44)
[2020-07-24] MEDS: ASPIRIN EC 81 MG TABLET PO SCH (08:44)
[2020-07-24] MEDS: carvediloL 6.25 MG TABLET PO SCH ×2 (08:45→18:10)
[2020-07-24] MEDS: PANTOPRAZOLE 40 MG TABLET PO SCH ×2 (08:45→20:45)
[2020-07-24] MEDS ORDERED: PREGABALIN 75 MG CAPSULE PO SCH (09:00)
[2020-07-24] MEDS ORDERED: ERGOCALCIFEROL 50,000 UNIT CAPSULE PO SCH (09:30)
[2020-07-24] MEDS: hydrALAZINE 20 MG/1 ML VIAL IV PRN (10:03)
[2020-07-24] MEDS ORDERED: GLUCAGON 1 MG VIAL IM PRN (10:29)
[2020-07-24] MEDS ORDERED: DEXTROSE 50% 25 GM/50 ML VIAL IV PRN (10:29)
[2020-07-24] MEDS: INSULIN GLARGINE 100 UNIT/ML SUBCUT SCH ×2 (11:14→20:45)
[2020-07-24] MEDS: INSULIN LISPRO 100 UNIT/ML SUBCUT SCH ×3 (11:23→20:46)
[2020-07-24 11:42] LABS: Osmolality,Calculated 282.7 MOS/KG (273-304); Potassium 4.4 MMOL/L (3.5-5.1)
[2020-07-24 12:16] LABS: Hepatitis B Core IgM Quant < 0.05 Index; Hepatitis B Surface Ag Quant 0.41 Index; Hepatitis B Surface Ag Result Non-Reactive (NonReactive); Hepatitis C Virus Ab Quant 0.31 Index; Hepatitis C Virus Ab Result Non-Reactive (NonReactive)
[2020-07-24] MEDS: amLODIPine 10 MG TABLET PO SCH (13:51)
[2020-07-24] MEDS: NITROGLYCERIN SL 0.4 MG TABLET SL PRN ×3 (15:17→15:28)
[2020-07-24] MEDS: MORPHINE 4 MG/1 ML VIAL IV PRN ×3 (15:50→23:21)
[2020-07-24] MEDS ORDERED: ALUM/MAG/SIMETH/LIDO VISC 1:1 30 ML BOTTLE PO ONE (17:37)
[2020-07-24] MEDS ORDERED: guaiFENesin/DM ER 600-30 MG TABLET PO PRN (17:39)
[2020-07-24] MEDS: ONDANSETRON 4 MG/2 ML VIAL IV PRN (19:27)
[2020-07-24] MEDS: PREGABALIN 75 MG CAPSULE PO SCH (20:45)
[2020-07-24] MEDS: METOCLOPRAMIDE 5 MG TABLET PO SCH (20:45)
[2020-07-24 21:21] LABS: Calcium 7.8 MG/DL (8.5-10.1); Osmolality,Calculated 288.5 MOS/KG (273-304); Potassium 4.3 MMOL/L (3.5-5.1)
[2020-07-25] MEDS: ENOXAPARIN 80 MG/0.8 ML SYRINGE SUBCUT SCH ×2 (04:50→16:26)
[2020-07-25 05:06] LABS: Basophils # 0.1 10*3/uL (0.0-0.2); Basophils % 0.8 % (0.0-0.8); Eosinophils # 0.4 10*3/uL (0.0-0.87); Hematocrit 24.7 VOL% (35.7-47.0); Hemoglobin 7.9 GM/DL (12.0-16.0); Immature Granulocytes % 0.3 %; Immature Granulocytes Absolute 0.03 #; Lymphocytes % 23.3 % (21.3-54.2); Mean Corpuscular Volume 102.1 FL (87-102); Mean Platelet Volume 12.1 FL (9.6-12.0); Monocytes % 6.7 % (1.7-12.7); Neutrophils % 63.9 % (38.7-73.9); Platelet Count 196 T/CUMM (130-400); Red Blood Count 2.42 MC/CUMM (3.8-5.5); Red Cell Distribution Width 14.6 % (9.3-17.3); White Blood Count 8.6 T/CUMM (4-12)
[2020-07-25 05:23] LABS: Alanine Aminotransferase 64 U/L (13-56); Albumin 1.4 G/DL (3.4-5.0); Alkaline Phosphatase 875 U/L (45-117); Aspartate Amino Transferase 21 U/L (0-37); Bilirubin,Total < 0.39 MG/DL (0.2-1.0); Blood Urea Nitrogen 14 MG/DL (7-18); Calcium 7.5 MG/DL (8.5-10.1); Carbon Dioxide 21 MMOL/L (21-32); Estimated Glom Filtration Rate 101 ML/MIN; Glucose 159 MG/DL (74-106); Osmolality,Calculated 284.3 MOS/KG (273-304); Potassium 4.1 MMOL/L (3.5-5.1); Sodium 141 MMOL/L (136-145); Total Protein 5.6 G/DL (6.4-8.3)
[2020-07-25] MEDS: INSULIN REGULAR DRIP 100 ML IV SCH (05:43)
[2020-07-25] MEDS: SODIUM CHLORIDE 0.9% 1,000 ML IV SCH ×2 (05:43→15:57)
[2020-07-25] MEDS: MORPHINE 4 MG/1 ML VIAL IV PRN ×4 (07:50→20:11)
[2020-07-25] MEDS: PREGABALIN 75 MG CAPSULE PO SCH ×2 (08:43→20:11)
[2020-07-25] MEDS: ASPIRIN EC 81 MG TABLET PO SCH (08:43)
[2020-07-25] MEDS: METOCLOPRAMIDE 5 MG TABLET PO SCH ×4 (08:43→20:46)
[2020-07-25] MEDS: PANTOPRAZOLE 40 MG TABLET PO SCH ×2 (08:44→20:11)
[2020-07-25] MEDS: INSULIN GLARGINE 100 UNIT/ML SUBCUT SCH ×2 (08:44→20:12)
[2020-07-25] MEDS: amLODIPine 10 MG TABLET PO SCH (08:44)
[2020-07-25] MEDS: carvediloL 6.25 MG TABLET PO SCH (08:44)
[2020-07-25] MEDS: INSULIN LISPRO 100 UNIT/ML SUBCUT SCH ×4 (08:45→20:25)
[2020-07-25] MEDS: LIDOCAINE 5% PATCH TRANSDERM SCH (08:45)
[2020-07-25] MEDS: ALUM/MAG/SIMETH/LIDO VISC 1:1 30 ML BOTTLE PO PRN ×2 (10:00→18:14)
[2020-07-25] MEDS: carvediloL 12.5 MG TABLET PO SCH (16:38)
[2020-07-25] MEDS: NITROGLYCERIN SL 0.4 MG TABLET SL PRN ×2 (18:13→18:57)
[2020-07-25] MEDS: ONDANSETRON 4 MG/2 ML VIAL IV PRN (18:13)
[2020-07-26] MEDS: MORPHINE 4 MG/1 ML VIAL IV PRN ×3 (03:11→19:25)
[2020-07-26] MEDS: ENOXAPARIN 80 MG/0.8 ML SYRINGE SUBCUT SCH ×2 (04:44→17:32)
[2020-07-26 08:39] LABS: Basophils # 0.1 10*3/uL (0.0-0.2); Basophils % 0.6 % (0.0-0.8); Eosinophils # 0.3 10*3/uL (0.0-0.87); Eosinophils % 2.2 % (0.00-10.9); Hematocrit 30.2 VOL% (35.7-47.0); Hemoglobin 9.6 GM/DL (12.0-16.0); Immature Granulocytes % 0.4 %; Immature Granulocytes Absolute 0.05 #; Lymphocytes # 1.4 10*3/uL (1.4-4.0); Lymphocytes % 12.7 % (21.3-54.2); Mean Corpuscular HGB Conc 31.8 GM/DL (32-36); Mean Corpuscular Volume 102.4 FL (87-102); Mean Platelet Volume 12.2 FL (9.6-12.0); Monocytes % 4.8 % (1.7-12.7); Neutrophils % 79.3 % (38.7-73.9); Platelet Count 228 T/CUMM (130-400); Red Blood Count 2.95 MC/CUMM (3.8-5.5); Red Cell Distribution Width 14.6 % (9.3-17.3); White Blood Count 11.4 T/CUMM (4-12)
[2020-07-26] MEDS ORDERED: ALUM/MAG/SIMETH/LIDO VISC 1:1 30 ML BOTTLE PO ONE (08:54)
[2020-07-26 09:09] LABS: Alanine Aminotransferase 51 U/L (13-56); Albumin 1.5 G/DL (3.4-5.0); Alkaline Phosphatase 908 U/L (45-117); Aspartate Amino Transferase 25 U/L (0-37); Bilirubin,Total < 0.39 MG/DL (0.2-1.0); Blood Urea Nitrogen 9 MG/DL (7-18); Calcium 8.5 MG/DL (8.5-10.1); Carbon Dioxide 22 MMOL/L (21-32); Estimated Glom Filtration Rate 90 ML/MIN; Free T4 (Free Thyroxine) 1.04 NG/DL (0.76-1.46); Glucose 308 MG/DL (74-106); Potassium 4.4 MMOL/L (3.5-5.1); Sodium 136 MMOL/L (136-145); Total Protein 6.5 G/DL (6.4-8.3)
[2020-07-26 09:19] LABS: Folate 6.9 NG/ML (5.38-24.0)
[2020-07-26] MEDS: INSULIN LISPRO 100 UNIT/ML SUBCUT SCH ×4 (09:30→22:14)
[2020-07-26] MEDS: PANTOPRAZOLE 40 MG TABLET PO SCH ×2 (09:31→22:06)
[2020-07-26] MEDS: amLODIPine 10 MG TABLET PO SCH (09:31)
[2020-07-26] MEDS: ASPIRIN EC 81 MG TABLET PO SCH (09:31)
[2020-07-26] MEDS: carvediloL 12.5 MG TABLET PO SCH ×2 (09:31→17:32)
[2020-07-26] MEDS: METOCLOPRAMIDE 5 MG TABLET PO SCH ×4 (09:32→22:06)
[2020-07-26] MEDS: PREGABALIN 75 MG CAPSULE PO SCH ×2 (09:32→22:38)
[2020-07-26] MEDS: CHLORTHALIDONE 25 MG TABLET PO SCH (09:32)
[2020-07-26] MEDS: INSULIN GLARGINE 100 UNIT/ML SUBCUT SCH ×2 (09:33→22:07)
[2020-07-26] MEDS: LIDOCAINE 5% PATCH TRANSDERM SCH (09:34)
[2020-07-26] MEDS: hydrALAZINE 20 MG/1 ML VIAL IV PRN (11:47)
[2020-07-26] MEDS ORDERED: HYDROmorphone 2 MG/1 ML VIAL IV PRN (12:22)
[2020-07-26] MEDS: ALBUTEROL/IPRATROPIUM 3 ML NEB RESP TX SCH ×2 (12:27→19:50)
[2020-07-26] MEDS: ALUM/MAG/SIMETH/LIDO VISC 1:1 30 ML BOTTLE PO PRN (19:27)
[2020-07-27] MEDS: ALBUTEROL/IPRATROPIUM 3 ML NEB RESP TX SCH ×4 (00:31→19:03)
[2020-07-27] MEDS: MORPHINE 4 MG/1 ML VIAL IV PRN ×2 (04:48→09:05)
[2020-07-27] MEDS: ENOXAPARIN 80 MG/0.8 ML SYRINGE SUBCUT SCH (04:49)
[2020-07-27 06:45] LABS: Basophils # 0.1 10*3/uL (0.0-0.2); Basophils % 1.1 % (0.0-0.8); Eosinophils # 0.6 10*3/uL (0.0-0.87); Eosinophils % 6.7 % (0.00-10.9); Hematocrit 28.1 VOL% (35.7-47.0); Hemoglobin 9.3 GM/DL (12.0-16.0); Immature Granulocytes % 0.3 %; Immature Granulocytes Absolute 0.03 #; Mean Corpuscular HGB Conc 33.1 GM/DL (32-36); Mean Platelet Volume 12.5 FL (9.6-12.0); Monocytes % 7.6 % (1.7-12.7); Neutrophils % 62.3 % (38.7-73.9); Platelet Count 228 T/CUMM (130-400); Red Blood Count 2.81 MC/CUMM (3.8-5.5); Red Cell Distribution Width 14.1 % (9.3-17.3)
[2020-07-27 07:18] LABS: Alanine Aminotransferase 38 U/L (13-56); Albumin 1.4 G/DL (3.4-5.0); Alkaline Phosphatase 825 U/L (45-117); Aspartate Amino Transferase 27 U/L (0-37); Bilirubin,Total < 0.39 MG/DL (0.2-1.0); Blood Urea Nitrogen 13 MG/DL (7-18); Calcium 8.4 MG/DL (8.5-10.1); Carbon Dioxide 28 MMOL/L (21-32); Estimated Glom Filtration Rate 80 ML/MIN; Glucose 96 MG/DL (74-106); Osmolality,Calculated 278.4 MOS/KG (273-304); Potassium 3.7 MMOL/L (3.5-5.1); Sodium 140 MMOL/L (136-145); Total Protein 6.1 G/DL (6.4-8.3)
[2020-07-27] MEDS: INSULIN LISPRO 100 UNIT/ML SUBCUT SCH ×4 (08:31→20:33)
[2020-07-27] MEDS: LIDOCAINE 5% PATCH TRANSDERM SCH (08:45)
[2020-07-27] MEDS: amLODIPine 10 MG TABLET PO SCH (08:46)
[2020-07-27] MEDS: carvediloL 12.5 MG TABLET PO SCH ×2 (08:46→16:44)
[2020-07-27] MEDS: ASPIRIN EC 81 MG TABLET PO SCH (08:46)
[2020-07-27] MEDS: PANTOPRAZOLE 40 MG TABLET PO SCH ×2 (08:46→20:32)
[2020-07-27] MEDS: METOCLOPRAMIDE 5 MG TABLET PO SCH ×4 (08:46→20:40)
[2020-07-27] MEDS: CHLORTHALIDONE 25 MG TABLET PO SCH (08:46)
[2020-07-27] MEDS: INSULIN GLARGINE 100 UNIT/ML SUBCUT SCH ×2 (08:46→20:33)
[2020-07-27] MEDS: LEVOFLOXACIN INJ 750 MG in PREMIX 1 EACH IV SCH (08:46)
[2020-07-27] MEDS: PREGABALIN 75 MG CAPSULE PO SCH ×2 (09:05→21:19)
[2020-07-28] MEDS: ALBUTEROL/IPRATROPIUM 3 ML NEB RESP TX SCH ×4 (00:55→18:50)
[2020-07-28 05:40] LABS: Basophils # 0.1 10*3/uL (0.0-0.2); Basophils % 0.5 % (0.0-0.8); Eosinophils # 0.7 10*3/uL (0.0-0.87); Eosinophils % 4.7 % (0.00-10.9); Hematocrit 30.3 VOL% (35.7-47.0); Hemoglobin 9.9 GM/DL (12.0-16.0); Immature Granulocytes % 0.4 %; Immature Granulocytes Absolute 0.06 #; Lymphocytes # 1.8 10*3/uL (1.4-4.0); Mean Corpuscular HGB Conc 32.7 GM/DL (32-36); Mean Corpuscular Volume 99.7 FL (87-102); Mean Platelet Volume 12.7 FL (9.6-12.0); Monocytes % 5.2 % (1.7-12.7); Neutrophils % 77.2 % (38.7-73.9); Platelet Count 318 T/CUMM (130-400); Red Blood Count 3.04 MC/CUMM (3.8-5.5)
[2020-07-28 05:58] LABS: Calcium 8.8 MG/DL (8.5-10.1); Osmolality,Calculated 277.7 MOS/KG (273-304); Potassium 3.5 MMOL/L (3.5-5.1)
[2020-07-28] MEDS: LIDOCAINE 5% PATCH TRANSDERM SCH (09:35)
[2020-07-28] MEDS: METOCLOPRAMIDE 5 MG TABLET PO SCH ×4 (09:35→21:54)
[2020-07-28] MEDS: PANTOPRAZOLE 40 MG TABLET PO SCH ×2 (09:35→21:54)
[2020-07-28] MEDS: carvediloL 12.5 MG TABLET PO SCH ×2 (09:36→16:10)
[2020-07-28] MEDS: amLODIPine 10 MG TABLET PO SCH (09:36)
[2020-07-28] MEDS: PREGABALIN 75 MG CAPSULE PO SCH ×2 (09:36→21:54)
[2020-07-28] MEDS: CHLORTHALIDONE 25 MG TABLET PO SCH (09:36)
[2020-07-28] MEDS: ASPIRIN EC 81 MG TABLET PO SCH (09:36)
[2020-07-28] MEDS: INSULIN LISPRO 100 UNIT/ML SUBCUT SCH ×5 (09:37→22:55)
[2020-07-28] MEDS: LEVOFLOXACIN INJ 750 MG in PREMIX 1 EACH IV SCH (09:37)
[2020-07-28] MEDS: INSULIN GLARGINE 100 UNIT/ML SUBCUT SCH ×2 (09:38→21:54)
[2020-07-28] MEDS: hydrALAZINE 20 MG/1 ML VIAL IV PRN (11:08)
[2020-07-28] MEDS: MORPHINE 4 MG/1 ML VIAL IV PRN (22:55)
[2020-07-28] MEDS ORDERED: traZODone 50 MG TABLET PO ONE (23:57)
[2020-07-29] MEDS: ALBUTEROL/IPRATROPIUM 3 ML NEB RESP TX SCH ×2 (00:59→07:20)
[2020-07-29 05:56] LABS: Basophils # 0.1 10*3/uL (0.0-0.2); Basophils % 0.8 % (0.0-0.8); Eosinophils # 0.5 10*3/uL (0.0-0.87); Eosinophils % 4.8 % (0.00-10.9); Hematocrit 28.1 VOL% (35.7-47.0); Hemoglobin 9.3 GM/DL (12.0-16.0); Immature Granulocytes % 0.5 %; Immature Granulocytes Absolute 0.05 #; Lymphocytes # 2.1 10*3/uL (1.4-4.0); Lymphocytes % 21.8 % (21.3-54.2); Mean Corpuscular HGB Conc 33.1 GM/DL (32-36); Mean Corpuscular Volume 98.3 FL (87-102); Mean Platelet Volume 12.2 FL (9.6-12.0); Monocytes % 8.2 % (1.7-12.7); Neutrophils % 63.9 % (38.7-73.9); Platelet Count 311 T/CUMM (130-400); Red Blood Count 2.86 MC/CUMM (3.8-5.5); Red Cell Distribution Width 13.6 % (9.3-17.3); White Blood Count 9.6 T/CUMM (4-12)
[2020-07-29 06:29] LABS: Calcium 9.1 MG/DL (8.5-10.1); Osmolality,Calculated 276.8 MOS/KG (273-304); Potassium 3.6 MMOL/L (3.5-5.1)
[2020-07-29 08:23] VITALS: BP 146/86
[2020-07-29] MEDS: PREGABALIN 75 MG CAPSULE PO SCH (09:08)
[2020-07-29] MEDS: amLODIPine 10 MG TABLET PO SCH (09:08)
[2020-07-29] MEDS: METOCLOPRAMIDE 5 MG TABLET PO SCH (09:08)
[2020-07-29] MEDS: ASPIRIN EC 81 MG TABLET PO SCH (09:08)
[2020-07-29] MEDS: CHLORTHALIDONE 25 MG TABLET PO SCH (09:09)
[2020-07-29] MEDS: carvediloL 12.5 MG TABLET PO SCH (09:09)
[2020-07-29] MEDS: INSULIN LISPRO 100 UNIT/ML SUBCUT SCH (09:10)
[2020-07-29] MEDS: INSULIN GLARGINE 100 UNIT/ML SUBCUT SCH (09:10)
[2020-07-29] MEDS: LIDOCAINE 5% PATCH TRANSDERM SCH (09:10)
[2020-07-29] MEDS: PANTOPRAZOLE 40 MG TABLET PO SCH (09:11)
[2020-07-29] MEDS: LEVOFLOXACIN INJ 750 MG in PREMIX 1 EACH IV SCH (09:25)
== END 2020-07-29 09:50 | disposition home or self-care (01) | DRG 637 ==
LOC: EDSEX → EDUNIT# → EDBD → N.ED 00:27 → N.EDINP 02:04 → SUATTDRO 02:04 → N.CC 02:46 → N.TELES 07-26 16:05
PROVIDERS: ADMIT Internal Medicine; ATTEND Internal Medicine
PROC: IRTHORA (2020-07-28 07:55)

== ENCOUNTER 2020-09-10 08:48 | Inpatient (IN) ==
[2020-09-10] MEDS ORDERED: ALBUTEROL 2.5 MG/3 ML NEB RESP TX STA (09:21)
[2020-09-10] MEDS ORDERED: SODIUM CHLORIDE 0.9% 1,000 ML IV STA (09:26)
[2020-09-10 09:41] LABS: Basophils # 0.1 10*3/uL (0.0-0.2); Basophils % 0.4 % (0.0-0.8); Eosinophils # 0.2 10*3/uL (0.0-0.87); Eosinophils % 1.1 % (0.00-10.9); Hematocrit 27.5 VOL% (35.7-47.0); Hemoglobin 8.9 GM/DL (12.0-16.0); Immature Granulocytes % 0.4 %; Immature Granulocytes Absolute 0.07 #; Lymphocytes # 1.6 10*3/uL (1.4-4.0); Mean Corpuscular HGB Conc 32.4 GM/DL (32-36); Mean Corpuscular Volume 100.7 FL (87-102); Mean Platelet Volume 12.3 FL (9.6-12.0); Monocytes % 4.1 % (1.7-12.7); Platelet Count 233 T/CUMM (130-400); Red Blood Count 2.73 MC/CUMM (3.8-5.5); Red Cell Distribution Width 14.3 % (9.3-17.3); White Blood Count 17.7 T/CUMM (4-12)
[2020-09-10 09:43] LABS: ABG Base Excess -1.7 MMOL/L (-2.5-2.5); ABG HCO3 22.8 MMOL/L (20-26); ABG Oxygen Saturation 91.3 % (95-100); ABG PCO2 30.4 MM HG (35-48); ABG PH 7.454 (7.35-7.45); ABG PO2 57.1 MM HG (80-95); ABG TCO2 19.2 MMOL/L (23-27)
[2020-09-10] MEDS ORDERED: LEVOFLOXACIN INJ 750 MG in PREMIX 1 EACH IV STA (10:06)
[2020-09-10] MEDS ORDERED: ONDANSETRON 4 MG/2 ML VIAL IV ONE (10:06)
[2020-09-10] MEDS ORDERED: hydrALAZINE 20 MG/1 ML VIAL IV STA (10:11)
[2020-09-10 10:15] LABS: Albumin 2.1 G/DL (3.4-5.0); Bilirubin,Total 0.5 MG/DL (0.2-1.0); Calcium 8.1 MG/DL (8.5-10.1); Osmolality,Calculated 285.5 MOS/KG (273-304); Total Protein 6.1 G/DL (6.4-8.2)
[2020-09-10] MEDS ORDERED: HYDROmorphone 2 MG/1 ML VIAL IV STA (10:28)
[2020-09-10] MEDS ORDERED: HYDROmorphone 2 MG/1 ML VIAL ONE (10:29)
[2020-09-10 10:46] LABS: PT Patient Result 10.3 SECS (9.8-11.9)
[2020-09-10] MEDS ORDERED: ACETAMINOPHEN 325 MG TABLET PO ONE (10:49)
[2020-09-10] MEDS ORDERED: ACETAMINOPHEN 325 MG TABLET ONE (10:51)
[2020-09-10] MEDS ORDERED: hydrALAZINE 20 MG/1 ML VIAL IV PRN (13:12)
[2020-09-10] MEDS ORDERED: GLUCAGON 1 MG VIAL IM PRN ×2 (13:12)
[2020-09-10] MEDS ORDERED: DEXTROSE 50% 25 GM/50 ML VIAL IV PRN ×2 (13:12)
[2020-09-10 13:19] LABS: Bacteria,Urine Occasional /HPF (Few); Bilirubin,Urine Negative (Negative); Blood, Urine Small mg/dL (Negative); Glucose,Urine (UA) 50 mg/dL (Negative); Ketones,Urine Negative (Negative); Mucus,Urine Occasional /LPF (Occasional); Nitrite,Urine Negative (Negative); Protein,Urine >=500 MG/DL; RBC,Urine 14 /HPF (0-4); Squamous Epithelial Cell,Urine Moderate /HPF (0-10); Urine Appearance Slightly Hazy (Clear); Urine Color Yellow (Yellow); Urine Specific Gravity 1.041 (1.001-1.035); Urine Urobilinogen < 2.0 EU/DL (0.2-1.0); WBC,Urine 2 /HPF (0-6)
[2020-09-10 14:29] LABS: Barbiturates Screen,Urine Negative (Negative); Benzodiazepines Screen,Urine Negative (Negative); Cannabinoid Screen,Urine Negative (Negative); Opiate Screen,Urine Positive (Negative); Phencyclidine Screen,Urine Negative (Negative)
[2020-09-10 14:51] LABS: Troponin I < 0.015 NG/ML (0.00-0.045)
[2020-09-10 14:54] LABS: Hepatitis B Core IgM Quant 0.08 Index; Hepatitis B Surface Ag Quant < 0.10 Index; Hepatitis B Surface Ag Result Non-Reactive (NonReactive); Hepatitis C Virus Ab Quant 0.08 Index; Hepatitis C Virus Ab Result Non-Reactive (NonReactive)
[2020-09-10] MEDS ORDERED: MORPHINE 4 MG/1 ML VIAL IV PRN (15:43)
[2020-09-10] MEDS: MORPHINE 4 MG/1 ML VIAL IV PRN ×2 (16:05→20:19)
[2020-09-10] MEDS: ENOXAPARIN 40 MG/0.4 ML SYRINGE SUBCUT SCH (16:05)
[2020-09-10] MEDS: INSULIN LISPRO 100 UNIT/ML SUBCUT SCH ×2 (16:07→20:35)
[2020-09-10] MEDS: carvediloL 6.25 MG TABLET PO SCH (16:07)
[2020-09-10] MEDS: ONDANSETRON 4 MG/2 ML VIAL IV PRN (17:15)
[2020-09-10] MEDS: ALBUTEROL/IPRATROPIUM 3 ML NEB RESP TX SCH (19:12)
[2020-09-10] MEDS: PREGABALIN 75 MG CAPSULE PO SCH (22:12)
[2020-09-10] MEDS: INSULIN GLARGINE 100 UNIT/ML SUBCUT SCH (22:12)
[2020-09-10] MEDS ORDERED: ACETAMINOPHEN 325 MG TABLET PO PRN (22:26)
[2020-09-10] MEDS ORDERED: methylPREDNISolone SOD SUC 125 MG/2 ML VIAL IV ONE (22:54)
[2020-09-10] MEDS ORDERED: FUROSEMIDE 40 MG/4 ML VIAL IV ONE (22:54)
[2020-09-10] MEDS ORDERED: MORPHINE 4 MG/1 ML VIAL IV ONE (22:54)
[2020-09-10] MEDS ORDERED: ALBUTEROL/IPRATROPIUM 3 ML NEB RESP TX ONE (22:54)
[2020-09-10] MEDS ORDERED: KETOROLAC 30 MG/1 ML VIAL IV ONE (23:02)
[2020-09-10] MEDS ORDERED: KETOROLAC 30 MG/1 ML VIAL ONE (23:03)
[2020-09-10 23:22] LABS: Calcium 8.1 MG/DL (8.5-10.1); Potassium 4.2 MMOL/L (3.5-5.1)
[2020-09-11] MEDS: AZTREONAM 1,000 MG in SODIUM CHLORIDE 0.9% 100 ML IV SCH ×2 (00:41→11:41)
[2020-09-11] MEDS: MORPHINE 4 MG/1 ML VIAL IV PRN ×8 (00:47→22:58)
[2020-09-11] MEDS: VANCOMYCIN INJ 1,250 MG in SODIUM CHLORIDE 0.9% 250 ML IV SCH ×2 (01:19→14:18)
[2020-09-11] MEDS: ALBUTEROL/IPRATROPIUM 3 ML NEB RESP TX SCH ×4 (03:00→19:35)
[2020-09-11 05:17] LABS: Basophils % 0.3 % (0.0-0.8); Hematocrit 34.9 VOL% (35.7-47.0); Immature Granulocytes % 0.6 %; Immature Granulocytes Absolute 0.09 #; Lymphocytes # 0.3 10*3/uL (1.4-4.0); Lymphocytes % 1.8 % (21.3-54.2); Mean Corpuscular HGB Conc 31.2 GM/DL (32-36); Mean Corpuscular Volume 101.7 FL (87-102); Mean Platelet Volume 12.9 FL (9.6-12.0); Monocytes % 0.7 % (1.7-12.7); Neutrophils % 96.6 % (38.7-73.9); Platelet Count 188 T/CUMM (130-400); Red Cell Distribution Width 14.1 % (9.3-17.3); White Blood Count 15.4 T/CUMM (4-12)
[2020-09-11 05:28] LABS: Albumin 1.9 G/DL (3.4-5.0); Bilirubin,Total 0.7 MG/DL (0.2-1.0); Calcium 8.7 MG/DL (8.5-10.1); Osmolality,Calculated 286.1 MOS/KG (273-304); Potassium 4.9 MMOL/L (3.5-5.1); Total Protein 7.1 G/DL (6.4-8.2)
[2020-09-11 06:00] LABS: Hemoglobin 10.9 GM/DL (12.0-16.0); Red Blood Count 3.43 MC/CUMM (3.8-5.5)
[2020-09-11] MEDS: AZITHROMYCIN INJ 500 MG in SODIUM CHLORIDE 0.9% 250 ML IV SCH (06:34)
[2020-09-11 06:56] LABS: Hypochromasia Slight; Lymphocytes 2 % (20-55); Macrocytosis Slight; Platelet Estimate Normal; Segmented Neutrophils 97 % (50-85); Total Cells Counted 100
[2020-09-11] MEDS: carvediloL 6.25 MG TABLET PO SCH ×2 (08:17→16:03)
[2020-09-11] MEDS: PREGABALIN 75 MG CAPSULE PO SCH ×3 (08:17→20:42)
[2020-09-11] MEDS: INSULIN LISPRO 100 UNIT/ML SUBCUT SCH ×4 (08:17→20:42)
[2020-09-11] MEDS: PANTOPRAZOLE 40 MG TABLET PO SCH (08:17)
[2020-09-11] MEDS: INSULIN GLARGINE 100 UNIT/ML SUBCUT SCH ×2 (08:17→20:42)
[2020-09-11] MEDS: amLODIPine 10 MG TABLET PO SCH (08:17)
[2020-09-11] MEDS ORDERED: SODIUM CHLORIDE 0.9% 500 ML IV ONE (12:37)
[2020-09-11] MEDS: ENOXAPARIN 40 MG/0.4 ML SYRINGE SUBCUT SCH (14:18)
[2020-09-11] MEDS: ALBUTEROL 2.5 MG/3 ML NEB RESP TX PRN ×2 (20:39→22:51)
[2020-09-12] MEDS: AZTREONAM 1,000 MG in SODIUM CHLORIDE 0.9% 100 ML IV SCH ×2 (00:14→12:02)
[2020-09-12] MEDS: VANCOMYCIN INJ 1,250 MG in SODIUM CHLORIDE 0.9% 250 ML IV SCH ×2 (00:53→13:20)
[2020-09-12] MEDS: ALBUTEROL/IPRATROPIUM 3 ML NEB RESP TX SCH ×4 (01:13→19:40)
[2020-09-12] MEDS: ALBUTEROL 2.5 MG/3 ML NEB RESP TX PRN (01:13)
[2020-09-12] MEDS: MORPHINE 4 MG/1 ML VIAL IV PRN ×6 (02:12→21:12)
[2020-09-12] MEDS: AZITHROMYCIN INJ 500 MG in SODIUM CHLORIDE 0.9% 250 ML IV SCH (06:22)
[2020-09-12] MEDS: INSULIN GLARGINE 100 UNIT/ML SUBCUT SCH ×2 (08:46→21:12)
[2020-09-12] MEDS: amLODIPine 10 MG TABLET PO SCH (08:46)
[2020-09-12] MEDS: carvediloL 12.5 MG TABLET PO SCH ×2 (08:46→16:05)
[2020-09-12] MEDS: INSULIN LISPRO 100 UNIT/ML SUBCUT SCH ×4 (08:46→21:11)
[2020-09-12] MEDS: PREGABALIN 75 MG CAPSULE PO SCH ×3 (08:46→21:11)
[2020-09-12] MEDS: PANTOPRAZOLE 40 MG TABLET PO SCH (08:46)
[2020-09-12 09:25] LABS: Basophils # 0.1 10*3/uL (0.0-0.2); Basophils % 0.4 % (0.0-0.8); Eosinophils # 0.4 10*3/uL (0.0-0.87); Eosinophils % 2.4 % (0.00-10.9); Hematocrit 27.4 VOL% (35.7-47.0); Hemoglobin 8.7 GM/DL (12.0-16.0); Immature Granulocytes % 0.5 %; Immature Granulocytes Absolute 0.09 #; Lymphocytes # 1.5 10*3/uL (1.4-4.0); Lymphocytes % 8.8 % (21.3-54.2); Mean Corpuscular HGB Conc 31.8 GM/DL (32-36); Mean Corpuscular Volume 101.1 FL (87-102); Mean Platelet Volume 12.4 FL (9.6-12.0); Neutrophils % 82.9 % (38.7-73.9); Platelet Count 217 T/CUMM (130-400); Red Blood Count 2.71 MC/CUMM (3.8-5.5); Red Cell Distribution Width 14.3 % (9.3-17.3)
[2020-09-12] MEDS ORDERED: methylPREDNISolone SOD SUC 125 MG/2 ML VIAL IV ONE (09:32)
[2020-09-12 09:56] LABS: Albumin 1.5 G/DL (3.4-5.0); Bilirubin,Total 1.1 MG/DL (0.2-1.0); Calcium 8.2 MG/DL (8.5-10.1); Osmolality,Calculated 289.8 MOS/KG (273-304); Potassium 3.9 MMOL/L (3.5-5.1); Total Protein 6.1 G/DL (6.4-8.2)
[2020-09-12] MEDS: ENOXAPARIN 40 MG/0.4 ML SYRINGE SUBCUT SCH (13:20)
[2020-09-12] MEDS ORDERED: ALBUTEROL/IPRATROPIUM 3 ML NEB RESP TX PRN (15:56)
[2020-09-12] MEDS: methylPREDNISolone SOD SUC 125 MG/2 ML VIAL IV SCH (17:35)
[2020-09-12] MEDS: ARFORMOTEROL 15 MCG/2 ML NEB RESP TX SCH (19:40)
[2020-09-12] MEDS: BUDESONIDE 0.5 MG/2 ML NEB RESP TX SCH (19:40)
[2020-09-13] MEDS: ALBUTEROL/IPRATROPIUM 3 ML NEB RESP TX SCH ×4 (00:24→19:26)
[2020-09-13] MEDS: AZTREONAM 1,000 MG in SODIUM CHLORIDE 0.9% 100 ML IV SCH ×2 (00:36→11:45)
[2020-09-13] MEDS: methylPREDNISolone SOD SUC 125 MG/2 ML VIAL IV SCH (01:51)
[2020-09-13] MEDS: VANCOMYCIN INJ 1,250 MG in SODIUM CHLORIDE 0.9% 250 ML IV SCH ×2 (01:51→13:33)
[2020-09-13] MEDS: MORPHINE 4 MG/1 ML VIAL IV PRN ×4 (01:56→21:26)
[2020-09-13] MEDS: AZITHROMYCIN INJ 500 MG in SODIUM CHLORIDE 0.9% 250 ML IV SCH (05:02)
[2020-09-13 05:25] LABS: Hematocrit 30.6 VOL% (35.7-47.0); Hemoglobin 9.6 GM/DL (12.0-16.0); Immature Granulocytes % 0.5 %; Immature Granulocytes Absolute 0.06 #; Lymphocytes # 0.4 10*3/uL (1.4-4.0); Lymphocytes % 3.6 % (21.3-54.2); Mean Corpuscular HGB Conc 31.4 GM/DL (32-36); Mean Corpuscular Volume 101.3 FL (87-102); Mean Platelet Volume 12.3 FL (9.6-12.0); Monocytes % 0.6 % (1.7-12.7); Neutrophils % 95.3 % (38.7-73.9); Platelet Count 234 T/CUMM (130-400); Red Blood Count 3.02 MC/CUMM (3.8-5.5); Red Cell Distribution Width 13.8 % (9.3-17.3)
[2020-09-13 05:49] LABS: Albumin 1.5 G/DL (3.4-5.0); Bilirubin,Total 0.4 MG/DL (0.2-1.0); Potassium 4.6 MMOL/L (3.5-5.1); Total Protein 6.9 G/DL (6.4-8.2)
[2020-09-13 05:53] LABS: Hypochromasia Slight; Lymphocytes 4 % (20-55); Microcytosis Slight; Platelet Estimate Adequate; Segmented Neutrophils 96 % (50-85); Total Cells Counted 100
[2020-09-13] MEDS: BUDESONIDE 0.5 MG/2 ML NEB RESP TX SCH ×2 (07:29→19:26)
[2020-09-13] MEDS: ARFORMOTEROL 15 MCG/2 ML NEB RESP TX SCH ×2 (07:29→19:26)
[2020-09-13] MEDS: INSULIN LISPRO 100 UNIT/ML SUBCUT SCH ×4 (08:19→20:07)
[2020-09-13] MEDS: INSULIN GLARGINE 100 UNIT/ML SUBCUT SCH ×2 (08:19→20:06)
[2020-09-13] MEDS: amLODIPine 10 MG TABLET PO SCH (08:19)
[2020-09-13] MEDS: PANTOPRAZOLE 40 MG TABLET PO SCH (08:19)
[2020-09-13] MEDS: PREGABALIN 75 MG CAPSULE PO SCH ×3 (08:19→20:06)
[2020-09-13] MEDS: carvediloL 12.5 MG TABLET PO SCH ×2 (08:19→17:03)
[2020-09-13] MEDS ORDERED: methylPREDNISolone SOD SUC 125 MG/2 ML VIAL IV SCH (09:07)
[2020-09-13] MEDS: ENOXAPARIN 40 MG/0.4 ML SYRINGE SUBCUT SCH (15:14)
[2020-09-13] MEDS ORDERED: methylPREDNISolone SOD SUC 40 MG/1 ML VIAL ONE (16:45)
[2020-09-13] MEDS: methylPREDNISolone SOD SUC 40 MG/1 ML VIAL IV SCH (17:02)
[2020-09-13] MEDS: ONDANSETRON 4 MG/2 ML VIAL IV PRN (21:24)
[2020-09-14] MEDS: AZTREONAM 1,000 MG in SODIUM CHLORIDE 0.9% 100 ML IV SCH ×2 (00:13→15:28)
[2020-09-14] MEDS: methylPREDNISolone SOD SUC 40 MG/1 ML VIAL IV SCH ×3 (00:13→17:15)
[2020-09-14] MEDS: ALBUTEROL/IPRATROPIUM 3 ML NEB RESP TX SCH ×4 (00:15→19:54)
[2020-09-14] MEDS ORDERED: VANCOMYCIN INJ 1,250 MG in SODIUM CHLORIDE 0.9% 250 ML IV SCH (01:00)
[2020-09-14] MEDS: ONDANSETRON 4 MG/2 ML VIAL IV PRN (02:10)
[2020-09-14] MEDS: MORPHINE 4 MG/1 ML VIAL IV PRN ×2 (02:12→11:37)
[2020-09-14] MEDS: AZITHROMYCIN INJ 500 MG in SODIUM CHLORIDE 0.9% 250 ML IV SCH (05:11)
[2020-09-14 06:42] LABS: Albumin 1.7 G/DL (3.4-5.0); Bilirubin,Total 0.5 MG/DL (0.2-1.0); Osmolality,Calculated 290.2 MOS/KG (273-304); Potassium 4.6 MMOL/L (3.5-5.1); Total Protein 6.9 G/DL (6.4-8.2)
[2020-09-14] MEDS: ARFORMOTEROL 15 MCG/2 ML NEB RESP TX SCH ×2 (07:00→19:54)
[2020-09-14] MEDS ORDERED: PROMETHAZINE 25 MG/1 ML VIAL IM ONE (07:00)
[2020-09-14] MEDS ORDERED: MEPERIDINE 50 MG/1 ML VIAL IM ONE (07:00)
[2020-09-14] MEDS: BUDESONIDE 0.5 MG/2 ML NEB RESP TX SCH ×2 (07:00→19:54)
[2020-09-14 07:10] LABS: Basophils % 0.1 % (0.0-0.8); Hematocrit 29.4 VOL% (35.7-47.0); Hemoglobin 9.5 GM/DL (12.0-16.0); Immature Granulocytes % 0.6 %; Immature Granulocytes Absolute 0.09 #; Lymphocytes # 0.7 10*3/uL (1.4-4.0); Lymphocytes % 4.9 % (21.3-54.2); Mean Corpuscular HGB Conc 32.3 GM/DL (32-36); Mean Platelet Volume 12.8 FL (9.6-12.0); Neutrophils % 92.4 % (38.7-73.9); Platelet Count 292 T/CUMM (130-400); Red Blood Count 2.97 MC/CUMM (3.8-5.5); Red Cell Distribution Width 13.8 % (9.3-17.3); White Blood Count 14.2 T/CUMM (4-12)
[2020-09-14] MEDS ORDERED: MIDAZOLAM 2 MG/2 ML VIAL IV ONE (07:30)
[2020-09-14] MEDS ORDERED: LIDOCAINE 2% VISCOUS 100 ML BOTTLE SWISH/SPIT ONE (07:30)
[2020-09-14] MEDS ORDERED: LIDOCAINE 2% 20 ML VIAL RESP TX ONE (07:30)
[2020-09-14] MEDS ORDERED: LIDOCAINE 1% 20 ML VIAL MISC INJ ONE (07:30)
[2020-09-14 07:35] LABS: Anisocytosis Slight; Band Neutrophils 2 % (0-10); Lymphocytes 6 % (20-55); Platelet Estimate Normal; Segmented Neutrophils 90 % (50-85); Total Cells Counted 100
[2020-09-14 07:36] LABS: Macrocytosis Slight
[2020-09-14] MEDS: INSULIN LISPRO 100 UNIT/ML SUBCUT SCH ×4 (09:10→22:50)
[2020-09-14] MEDS: carvediloL 12.5 MG TABLET PO SCH ×2 (10:44→17:14)
[2020-09-14] MEDS: PREGABALIN 75 MG CAPSULE PO SCH ×3 (10:45→22:50)
[2020-09-14] MEDS: amLODIPine 10 MG TABLET PO SCH (10:45)
[2020-09-14] MEDS: INSULIN GLARGINE 100 UNIT/ML SUBCUT SCH (10:46)
[2020-09-14] MEDS: PANTOPRAZOLE 40 MG TABLET PO SCH (10:46)
[2020-09-14] MEDS: SODIUM BICARBONATE 650 MG TABLET PO SCH ×2 (11:38→22:50)
[2020-09-14] MEDS: ENOXAPARIN 40 MG/0.4 ML SYRINGE SUBCUT SCH (12:50)
[2020-09-14] MEDS: cefTRIAXone 1,000 MG in SYRINGE 1 EACH IV SCH (15:27)
[2020-09-14] MEDS ORDERED: INSULIN GLARGINE 100 UNIT/ML SUBCUT SCH ×2 (21:00)
[2020-09-15] MEDS: methylPREDNISolone SOD SUC 40 MG/1 ML VIAL IV SCH ×2 (00:35→09:38)
[2020-09-15] MEDS: ALBUTEROL/IPRATROPIUM 3 ML NEB RESP TX SCH ×2 (02:49→07:20)
[2020-09-15] MEDS ORDERED: AZITHROMYCIN 250 MG TABLET PO ONE ×2 (05:02→05:04)
[2020-09-15] MEDS: BUDESONIDE 0.5 MG/2 ML NEB RESP TX SCH (07:20)
[2020-09-15] MEDS: ARFORMOTEROL 15 MCG/2 ML NEB RESP TX SCH (07:20)
[2020-09-15 07:43] LABS: Basophils % 0.1 % (0.0-0.8); Eosinophils % 0.1 % (0.00-10.9); Hematocrit 32.7 VOL% (35.7-47.0); Hemoglobin 10.4 GM/DL (12.0-16.0); Immature Granulocytes % 1.1 %; Immature Granulocytes Absolute 0.18 #; Lymphocytes # 1.8 10*3/uL (1.4-4.0); Lymphocytes % 10.8 % (21.3-54.2); Mean Corpuscular HGB Conc 31.8 GM/DL (32-36); Mean Corpuscular Volume 100.3 FL (87-102); Mean Platelet Volume 12.3 FL (9.6-12.0); Monocytes % 6.7 % (1.7-12.7); Neutrophils % 81.2 % (38.7-73.9); Platelet Count 341 T/CUMM (130-400); Red Blood Count 3.26 MC/CUMM (3.8-5.5); Red Cell Distribution Width 13.4 % (9.3-17.3); White Blood Count 16.1 T/CUMM (4-12)
[2020-09-15 08:04] LABS: Calcium 8.8 MG/DL (8.5-10.1); Osmolality,Calculated 301.5 MOS/KG (273-304); Potassium 4.2 MMOL/L (3.5-5.1)
[2020-09-15 08:10] VITALS: BP 164/76
[2020-09-15] MEDS: SODIUM BICARBONATE 650 MG TABLET PO SCH (08:58)
[2020-09-15] MEDS: carvediloL 12.5 MG TABLET PO SCH (08:58)
[2020-09-15] MEDS: PREGABALIN 75 MG CAPSULE PO SCH (08:58)
[2020-09-15] MEDS: PANTOPRAZOLE 40 MG TABLET PO SCH (08:58)
[2020-09-15] MEDS: amLODIPine 10 MG TABLET PO SCH (08:59)
[2020-09-15] MEDS: INSULIN LISPRO 100 UNIT/ML SUBCUT SCH (09:00)
[2020-09-15] MEDS ORDERED: INSULIN GLARGINE 100 UNIT/ML SUBCUT SCH (09:00)
[2020-09-15] MEDS: cefTRIAXone 1,000 MG in SYRINGE 1 EACH IV SCH (09:38)
== END 2020-09-15 09:53 | disposition home or self-care (01) | DRG 193 ==
LOC: N.ED 08:48 → N.EDINP 08:48 → N.5E 14:17
PROVIDERS: ADMIT Internal Medicine; ATTEND Internal Medicine

== ENCOUNTER 2020-10-02 15:31 | Inpatient (IN) ==
[2020-10-02 16:21] LABS: Basophils # 0.1 10*3/uL (0.0-0.2); Basophils % 0.5 % (0.0-0.8); Eosinophils % 0.3 % (0.00-10.9); Hemoglobin 10.7 GM/DL (12.0-16.0); Immature Granulocytes % 0.6 %; Immature Granulocytes Absolute 0.08 #; Lymphocytes # 0.6 10*3/uL (1.4-4.0); Lymphocytes % 4.1 % (21.3-54.2); Mean Corpuscular HGB Conc 29.7 GM/DL (32-36); Mean Corpuscular Volume 106.2 FL (87-102); Mean Platelet Volume 13.4 FL (9.6-12.0); Monocytes % 2.1 % (1.7-12.7); Neutrophils % 92.4 % (38.7-73.9); Platelet Count 251 T/CUMM (130-400); Red Blood Count 3.39 MC/CUMM (3.8-5.5); Red Cell Distribution Width 15.8 % (9.3-17.3); White Blood Count 13.5 T/CUMM (4-12)
[2020-10-02] MEDS ORDERED: INSULIN REGULAR 100 UNIT/ML IV STA (16:32)
[2020-10-02 16:57] LABS: ABG Base Excess -22.8 MMOL/L (-2.5-2.5); ABG HCO3 8.2 MMOL/L (20-26); ABG Oxygen Saturation 97.5 % (95-100); ABG TCO2 5.1 MMOL/L (23-27)
[2020-10-02 16:58] LABS: Eosinophils 1 % (0-10); Lymphocytes 5 % (20-55); Segmented Neutrophils 93 % (50-85); Total Cells Counted 100
[2020-10-02 17:00] LABS: Anisocytosis Slight; Macrocytosis 1+; Platelet Estimate Adequate; Polychromasia Few
[2020-10-02 17:06] LABS: ABG PCO2 16.2 MM HG (35-48); ABG PH 7.132 (7.35-7.45)
[2020-10-02] MEDS ORDERED: INSULIN REGULAR DRIP 100 ML IV PRN (17:07)
[2020-10-02] MEDS ORDERED: SODIUM CHLORIDE 0.9% 1,000 ML IV STA (17:09)
[2020-10-02 18:04] LABS: Potassium 4.4 MMOL/L (3.5-5.1)
[2020-10-02 18:06] LABS: Calcium 8.2 MG/DL (8.5-10.1)
[2020-10-02 18:12] LABS: Albumin 1.8 G/DL (3.4-5.0); Bilirubin,Total 0.5 MG/DL (0.2-1.0); Osmolality,Calculated 300.2 MOS/KG (273-304); Total Protein 6.2 G/DL (6.4-8.2)
[2020-10-02] MEDS ORDERED: AZITHROMYCIN INJ 500 MG in SODIUM CHLORIDE 0.9% 250 ML IV STA (19:02)
[2020-10-02] MEDS ORDERED: cefTRIAXone 1,000 MG in SODIUM CHLORIDE 0.9% 100 ML IV STA (19:02)
[2020-10-02] MEDS ORDERED: ALBUTEROL 2.5 MG/3 ML NEB RESP TX PRN (19:41)
[2020-10-02] MEDS ORDERED: SODIUM BICARB INJ 100 MEQ in STERILE WATER INJ 400 ML IV PRN (19:46)
[2020-10-02] MEDS ORDERED: SODIUM CHLORIDE 0.9% 1,000 ML IV ONE (19:46)
[2020-10-02] MEDS ORDERED: SODIUM PHOSPHATE INJ 19.8 MMOL in SODIUM CHLORIDE 0.9% 250 ML IV PRN (19:46)
[2020-10-02] MEDS ORDERED: MAGNESIUM SULF RIDER 2 GM/50 ML PREMIX IV PRN (19:46)
[2020-10-02] MEDS ORDERED: MAGNESIUM SULF RIDER 4 GM/100 ML PREMIX IV PRN (19:46)
[2020-10-02] MEDS ORDERED: DEXTROSE 50% 25 GM/50 ML VIAL IV PRN ×2 (19:46)
[2020-10-02] MEDS ORDERED: INSULIN REGULAR 100 UNIT/ML IV ONE (19:46)
[2020-10-02] MEDS ORDERED: ONDANSETRON 4 MG/2 ML VIAL IV PRN (19:50)
[2020-10-02] MEDS ORDERED: NITROGLYCERIN SL 0.4 MG TABLET SL PRN (19:50)
[2020-10-02] MEDS ORDERED: INSULIN REGULAR DRIP 100 ML IV SCH (20:00)
[2020-10-02 20:17] LABS: ABG Base Excess -13.3 MMOL/L (-2.5-2.5); ABG HCO3 14.1 MMOL/L (20-26); ABG Oxygen Saturation 97.4 % (95-100); ABG PCO2 25.3 MM HG (35-48); ABG PO2 95.6 MM HG (80-95); ABG TCO2 11.2 MMOL/L (23-27)
[2020-10-02 20:18] LABS: Calcium 8.4 MG/DL (8.5-10.1); Osmolality,Calculated 289.7 MOS/KG (273-304); Potassium 4.5 MMOL/L (3.5-5.1)
[2020-10-02] MEDS: SODIUM CHLORIDE 0.9% 1,000 ML IV SCH ×2 (21:25→23:35)
[2020-10-02] MEDS: ENOXAPARIN 30 MG/0.3 ML SYRINGE SUBCUT SCH (21:30)
[2020-10-02] MEDS: PANTOPRAZOLE 40 MG VIAL IV SCH (22:10)
[2020-10-02 22:37] LABS: Bacteria,Urine Occasional /HPF (Few); Bilirubin,Urine Negative (Negative); Blood, Urine Moderate mg/dL (Negative); Glucose,Urine (UA) >=500 mg/dL (Negative); Hyaline Casts,Urine 10 /LPF (0-3); Ketones,Urine 80 mg/dL (Negative); Mucus,Urine Occasional /LPF (Occasional); Nitrite,Urine Negative (Negative); Protein,Urine >=500 MG/DL; RBC,Urine 3 /HPF (0-4); Squamous Epithelial Cell,Urine Occasional /HPF (0-10); Urine Appearance CLEAR (Clear); Urine Color Yellow (Yellow); Urine Specific Gravity 1.014 (1.001-1.035); Urine Urobilinogen < 2.0 EU/DL (0.2-1.0)
[2020-10-02 22:41] LABS: Barbiturates Screen,Urine Negative (Negative); Benzodiazepines Screen,Urine Negative (Negative); Cannabinoid Screen,Urine Negative (Negative); Opiate Screen,Urine Positive (Negative); Phencyclidine Screen,Urine Negative (Negative)
[2020-10-02] MEDS: PREGABALIN 75 MG CAPSULE PO SCH (22:55)
[2020-10-03] MEDS: SODIUM CHLORIDE 0.9% 1,000 ML IV SCH ×4 (00:13→21:39)
[2020-10-03 00:25] LABS: Osmolality,Calculated 292.8 MOS/KG (273-304); Potassium 4.4 MMOL/L (3.5-5.1)
[2020-10-03 01:18] LABS: Troponin I 0.247 NG/ML (0.00-0.045)
[2020-10-03 02:28] LABS: Troponin I 0.214 NG/ML (0.00-0.045)
[2020-10-03 04:00] LABS: Basophils # 0.1 10*3/uL (0.0-0.2); Basophils % 0.7 % (0.0-0.8); Eosinophils # 0.6 10*3/uL (0.0-0.87); Eosinophils % 5.5 % (0.00-10.9); Hematocrit 23.5 VOL% (35.7-47.0); Hemoglobin 7.6 GM/DL (12.0-16.0); Immature Granulocytes % 0.1 %; Immature Granulocytes Absolute 0.01 #; Lymphocytes # 2.4 10*3/uL (1.4-4.0); Lymphocytes % 23.7 % (21.3-54.2); Mean Corpuscular HGB Conc 32.3 GM/DL (32-36); Mean Corpuscular Volume 99.2 FL (87-102); Mean Platelet Volume 12.3 FL (9.6-12.0); Monocytes % 6.1 % (1.7-12.7); Neutrophils % 63.9 % (38.7-73.9); Platelet Count 197 T/CUMM (130-400); Red Blood Count 2.37 MC/CUMM (3.8-5.5); Red Cell Distribution Width 15.1 % (9.3-17.3)
[2020-10-03 04:15] LABS: Potassium 3.6 MMOL/L (3.5-5.1); Risk Ratio 3.3; VLDL CHOLESTEROL 30.2 MG/DL
[2020-10-03] MEDS: DEXT 5% NACL 0.45% KCL 20 MEQ 20 MEQ/1,000 ML BAG IV SCH ×2 (04:20→11:36)
[2020-10-03] MEDS: POTASSIUM CHLORIDE RIDER 10 MEQ in PREMIX 1 EACH IV PRN ×2 (04:56→05:49)
[2020-10-03] MEDS ORDERED: carvediloL 12.5 MG TABLET PO SCH (08:00)
[2020-10-03] MEDS: ASPIRIN CHEW 81 MG TABLET PO SCH (08:05)
[2020-10-03] MEDS: SERTRALINE 25 MG TABLET PO SCH (08:05)
[2020-10-03] MEDS: PREGABALIN 75 MG CAPSULE PO SCH ×3 (08:05→21:30)
[2020-10-03] MEDS ORDERED: amLODIPine 10 MG TABLET PO SCH (09:00)
[2020-10-03] MEDS ORDERED: GLUCAGON 1 MG VIAL IM PRN (09:15)
[2020-10-03] MEDS ORDERED: DEXTROSE 50% 25 GM/50 ML VIAL IV PRN (09:15)
[2020-10-03 09:53] LABS: Calcium 7.7 MG/DL (8.5-10.1); Osmolality,Calculated 288.5 MOS/KG (273-304); Potassium 4.2 MMOL/L (3.5-5.1)
[2020-10-03] MEDS: MORPHINE 4 MG/1 ML VIAL IV PRN (10:13)
[2020-10-03] MEDS: carvediloL 3.125 MG TABLET PO SCH ×2 (10:29→17:57)
[2020-10-03] MEDS: INSULIN GLARGINE 100 UNIT/ML SUBCUT SCH ×2 (10:29→21:30)
[2020-10-03 10:41] LABS: Hematocrit 27.3 VOL% (35.7-47.0); Hemoglobin 8.6 GM/DL (12.0-16.0)
[2020-10-03 10:51] LABS: % Iron Saturation 38.6 % (18-50)
[2020-10-03 10:56] LABS: Folate 11.39 NG/ML (5.38-24.0)
[2020-10-03] MEDS: INSULIN REGULAR 100 UNIT/ML SUBCUT SCH ×3 (11:20→21:30)
[2020-10-03] MEDS ORDERED: INSULIN REGULAR 100 UNIT/ML SUBCUT SCH (12:00)
[2020-10-03] MEDS ORDERED: SODIUM CHLORIDE 0.45% 1,000 ML IV SCH (12:46)
[2020-10-03 18:39] LABS: Hematocrit 31.2 VOL% (35.7-47.0); Hemoglobin 9.8 GM/DL (12.0-16.0)
[2020-10-03] MEDS ORDERED: AZITHROMYCIN INJ 500 MG in SODIUM CHLORIDE 0.9% 250 ML IV SCH (20:00)
[2020-10-03] MEDS ORDERED: cefTRIAXone 1,000 MG VIAL IV SCH (20:30)
[2020-10-03] MEDS: ENOXAPARIN 30 MG/0.3 ML SYRINGE SUBCUT SCH (21:30)
[2020-10-03] MEDS: PANTOPRAZOLE 40 MG VIAL IV SCH (23:57)
[2020-10-04] MEDS: cefTRIAXone 1,000 MG VIAL IM SCH (00:56)
[2020-10-04 02:13] LABS: Hematocrit 32.1 VOL% (35.7-47.0); Hemoglobin 10.4 GM/DL (12.0-16.0)
[2020-10-04 02:26] LABS: Calcium 8.1 MG/DL (8.5-10.1); Potassium 4.4 MMOL/L (3.5-5.1)
[2020-10-04] MEDS: SODIUM CHLORIDE 0.9% 1,000 ML IV SCH (03:18)
[2020-10-04 06:35] LABS: Basophils # 0.1 10*3/uL (0.0-0.2); Eosinophils # 1.2 10*3/uL (0.0-0.87); Eosinophils % 15.3 % (0.00-10.9); Hematocrit 31.8 VOL% (35.7-47.0); Hemoglobin 9.8 GM/DL (12.0-16.0); Immature Granulocytes % 0.4 %; Immature Granulocytes Absolute 0.03 #; Lymphocytes # 1.8 10*3/uL (1.4-4.0); Lymphocytes % 22.1 % (21.3-54.2); Mean Corpuscular HGB Conc 30.8 GM/DL (32-36); Mean Corpuscular Volume 102.9 FL (87-102); Mean Platelet Volume 12.3 FL (9.6-12.0); Monocytes % 7.2 % (1.7-12.7); Platelet Count 243 T/CUMM (130-400); Red Blood Count 3.09 MC/CUMM (3.8-5.5); Red Cell Distribution Width 15.6 % (9.3-17.3); White Blood Count 8.1 T/CUMM (4-12)
[2020-10-04 06:57] LABS: Eosinophils 22 % (0-10); Lymphocytes 27 % (20-55); Segmented Neutrophils 43 % (50-85); Total Cells Counted 100
[2020-10-04 06:58] LABS: Hypochromasia 1+; Microcytosis 1+; Platelet Estimate Adequate
[2020-10-04] MEDS ORDERED: carvediloL 6.25 MG TABLET PO SCH (09:00)
[2020-10-04] MEDS: INSULIN GLARGINE 100 UNIT/ML SUBCUT SCH ×2 (09:35→22:55)
[2020-10-04] MEDS: ASPIRIN CHEW 81 MG TABLET PO SCH (09:35)
[2020-10-04] MEDS: carvediloL 12.5 MG TABLET PO SCH ×2 (09:36→20:40)
[2020-10-04] MEDS: AZITHROMYCIN 250 MG TABLET PO SCH (09:36)
[2020-10-04] MEDS: SERTRALINE 25 MG TABLET PO SCH (09:36)
[2020-10-04] MEDS: PANTOPRAZOLE 40 MG TABLET PO SCH (09:37)
[2020-10-04] MEDS: PREGABALIN 75 MG CAPSULE PO SCH ×3 (09:37→20:45)
[2020-10-04] MEDS ORDERED: FUROSEMIDE 40 MG/4 ML VIAL IV ONE (09:47)
[2020-10-04] MEDS ORDERED: amLODIPine 5 MG TABLET PO SCH (10:00)
[2020-10-04 10:29] LABS: Hematocrit 30.8 VOL% (35.7-47.0); Hemoglobin 9.4 GM/DL (12.0-16.0)
[2020-10-04] MEDS: MORPHINE 4 MG/1 ML VIAL IV PRN ×3 (10:50→22:14)
[2020-10-04] MEDS: INSULIN REGULAR 100 UNIT/ML SUBCUT SCH ×4 (12:52→20:40)
[2020-10-04] MEDS ORDERED: ATORVASTATIN 10 MG TABLET PO SCH (21:00)
[2020-10-04] MEDS: ENOXAPARIN 30 MG/0.3 ML SYRINGE SUBCUT SCH (22:53)
[2020-10-05] MEDS: cefTRIAXone 1,000 MG VIAL IM SCH (00:41)
[2020-10-05] MEDS: MORPHINE 4 MG/1 ML VIAL IV PRN (03:46)
[2020-10-05 05:35] LABS: Basophils # 0.1 10*3/uL (0.0-0.2); Basophils % 1.4 % (0.0-0.8); Eosinophils # 1.7 10*3/uL (0.0-0.87); Eosinophils % 23.3 % (0.00-10.9); Hematocrit 30.9 VOL% (35.7-47.0); Immature Granulocytes % 0.1 %; Immature Granulocytes Absolute 0.01 #; Lymphocytes # 1.8 10*3/uL (1.4-4.0); Lymphocytes % 24.4 % (21.3-54.2); Mean Corpuscular HGB Conc 32.4 GM/DL (32-36); Mean Corpuscular Volume 99.7 FL (87-102); Mean Platelet Volume 12.8 FL (9.6-12.0); Monocytes % 7.6 % (1.7-12.7); Neutrophils % 43.2 % (38.7-73.9); Platelet Count 263 T/CUMM (130-400); Red Cell Distribution Width 15.3 % (9.3-17.3); White Blood Count 7.3 T/CUMM (4-12)
[2020-10-05 06:01] LABS: Eosinophils 20 % (0-10); Lymphocytes 29 % (20-55); Segmented Neutrophils 49 % (50-85); Total Cells Counted 100
[2020-10-05 06:02] LABS: Calcium 8.7 MG/DL (8.5-10.1); Hypochromasia Slight; Microcytosis Slight; Osmolality,Calculated 283.3 MOS/KG (273-304); Platelet Estimate Adequate; Potassium 4.3 MMOL/L (3.5-5.1)
[2020-10-05 06:11] LABS: Alanine Aminotransferase 129 U/L (13-56); Albumin 1.8 G/DL (3.4-5.0); Alkaline Phosphatase 975 U/L (45-117); Aspartate Amino Transferase 159 U/L (0-37); Bilirubin,Total < 0.39 MG/DL (0.2-1.0); Blood Urea Nitrogen 23 MG/DL (7-18); Calcium 8.5 MG/DL (8.5-10.1); Carbon Dioxide 25 MMOL/L (21-32); Estimated Glom Filtration Rate 58 ML/MIN; Glucose 87 MG/DL (74-106); Osmolality,Calculated 283.3 MOS/KG (273-304); Potassium 4.3 MMOL/L (3.5-5.1); Sodium 141 MMOL/L (136-145); Total Protein 6.3 G/DL (6.4-8.2)
[2020-10-05] MEDS: INSULIN REGULAR 100 UNIT/ML SUBCUT SCH (08:01)
[2020-10-05] MEDS ORDERED: amLODIPine 5 MG TABLET PO SCH (09:00)
[2020-10-05] MEDS: INSULIN GLARGINE 100 UNIT/ML SUBCUT SCH (09:51)
[2020-10-05] MEDS: PREGABALIN 75 MG CAPSULE PO SCH (09:52)
[2020-10-05] MEDS: carvediloL 12.5 MG TABLET PO SCH (09:52)
[2020-10-05] MEDS: SERTRALINE 25 MG TABLET PO SCH (09:52)
[2020-10-05] MEDS: PANTOPRAZOLE 40 MG TABLET PO SCH (09:52)
[2020-10-05] MEDS: ASPIRIN CHEW 81 MG TABLET PO SCH (09:52)
[2020-10-05] MEDS: AZITHROMYCIN 250 MG TABLET PO SCH (09:52)
[2020-10-05 11:56] VITALS: BP 185/102
== END 2020-10-05 12:25 | disposition home or self-care (01) | DRG 637 ==
LOC: EDUNIT# → EDBD → N.ED 15:31 → N.EDINP 19:41 → SUATTDRO 19:41 → N.CC 21:15 → N.TELES 10-03 12:12
PROVIDERS: ADMIT Internal Medicine; ATTEND Internal Medicine

== ENCOUNTER 2020-12-20 11:29 | Inpatient (IN) ==
[2020-12-20 11:47] LABS: Basophils # 0.1 10*3/uL (0.0-0.2); Basophils % 0.8 % (0.0-0.8); Eosinophils # 0.8 10*3/uL (0.0-0.87); Eosinophils % 7.6 % (0.00-10.9); Hematocrit 33.9 VOL% (35.7-47.0); Hemoglobin 11.1 GM/DL (12.0-16.0); Immature Granulocytes % 0.3 %; Immature Granulocytes Absolute 0.03 #; Lymphocytes # 2.1 10*3/uL (1.4-4.0); Lymphocytes % 20.8 % (21.3-54.2); Mean Corpuscular HGB Conc 32.7 GM/DL (32-36); Mean Platelet Volume 11.8 FL (9.6-12.0); Monocytes % 5.6 % (1.7-12.7); Neutrophils % 64.9 % (38.7-73.9); Platelet Count 175 T/CUMM (130-400); Red Blood Count 3.53 MC/CUMM (3.8-5.5); Red Cell Distribution Width 15.3 % (9.3-17.3)
[2020-12-20] MEDS ORDERED: DEXTROSE 50% 25 GM/50 ML SYRINGE IV ONE ×2 (12:05→13:27)
[2020-12-20] MEDS ORDERED: DEXTROSE 50% 25 GM/50 ML VIAL IV STA (12:15)
[2020-12-20 12:21] LABS: Alanine Aminotransferase 58 U/L (13-56); Alkaline Phosphatase 313 U/L (45-117); Aspartate Amino Transferase 89 U/L (0-37); Bilirubin,Total < 0.39 MG/DL (0.20-1.00); Blood Urea Nitrogen 19 MG/DL (7-18); Calcium 8.4 MG/DL (8.5-10.1); Carbon Dioxide 23 MMOL/L (21-32); Estimated Glom Filtration Rate 74 ML/MIN; Osmolality,Calculated 281.1 MOS/KG (273-304); Potassium 3.9 MMOL/L (3.5-5.1); Sodium 142 MMOL/L (136-145)
[2020-12-20 12:34] LABS: Glucose 43 MG/DL (74-106)
[2020-12-20] MEDS ORDERED: methylPREDNISolone SOD SUC 125 MG/2 ML VIAL IV STA (12:41)
[2020-12-20] MEDS ORDERED: ALBUTEROL/IPRATROPIUM 3 ML NEB RESP TX STA (12:41)
[2020-12-20 13:34] LABS: Barbiturates Screen,Urine Negative (Negative); Benzodiazepines Screen,Urine Negative (Negative); Cannabinoid Screen,Urine Negative (Negative); Opiate Screen,Urine Positive (Negative); Phencyclidine Screen,Urine Negative (Negative)
[2020-12-20] MEDS ORDERED: MORPHINE 10 MG/1 ML VIAL IV STA (14:10)
[2020-12-20] MEDS ORDERED: MORPHINE 4 MG/1 ML VIAL ONE (14:12)
[2020-12-20] MEDS ORDERED: GLUCAGON 1 MG VIAL IM PRN (15:14)
[2020-12-20] MEDS ORDERED: ALBUTEROL/IPRATROPIUM 3 ML NEB RESP TX PRN (15:14)
[2020-12-20] MEDS ORDERED: ONDANSETRON 4 MG/2 ML VIAL IV PRN (15:14)
[2020-12-20] MEDS ORDERED: SIMETHICONE CHEW 125 MG TABLET PO PRN (15:14)
[2020-12-20] MEDS ORDERED: DOCUSATE SODIUM 100 MG CAPSULE PO PRN (15:14)
[2020-12-20] MEDS ORDERED: DEXTROSE 50% 25 GM/50 ML VIAL IV PRN (15:14)
[2020-12-20] MEDS ORDERED: FUROSEMIDE 40 MG/4 ML VIAL IV ONE (15:49)
[2020-12-20] MEDS: amLODIPine 10 MG TABLET PO SCH (16:05)
[2020-12-20] MEDS: ENOXAPARIN 40 MG/0.4 ML SYRINGE SUBCUT SCH (16:05)
[2020-12-20] MEDS: methylPREDNISolone SOD SUC 40 MG/1 ML VIAL IV SCH (16:05)
[2020-12-20] MEDS: hydrALAZINE 20 MG/1 ML VIAL IV PRN ×2 (16:45→23:58)
[2020-12-20] MEDS ORDERED: MORPHINE 2 MG/1 ML SYRINGE IV ONE (19:31)
[2020-12-20] MEDS ORDERED: LEVALBUTEROL 1.25 MG/3 ML NEB RESP TX ONE (19:32)
[2020-12-20] MEDS ORDERED: methylPREDNISolone SOD SUC 40 MG/1 ML VIAL IV ONE (19:33)
[2020-12-20] MEDS: PREGABALIN 75 MG CAPSULE PO SCH (21:22)
[2020-12-21] MEDS: LEVALBUTEROL 1.25 MG/3 ML NEB RESP TX SCH ×2 (00:55→07:45)
[2020-12-21] MEDS: methylPREDNISolone SOD SUC 40 MG/1 ML VIAL IV SCH (03:37)
[2020-12-21 04:57] LABS: Basophils % 0.1 % (0.0-0.8); Hematocrit 33.7 VOL% (35.7-47.0); Immature Granulocytes % 0.8 %; Immature Granulocytes Absolute 0.14 #; Lymphocytes # 0.6 10*3/uL (1.4-4.0); Lymphocytes % 3.4 % (21.3-54.2); Mean Corpuscular HGB Conc 32.6 GM/DL (32-36); Mean Corpuscular Volume 97.1 FL (87-102); Mean Platelet Volume 12.9 FL (9.6-12.0); Monocytes % 1.2 % (1.7-12.7); Neutrophils % 94.5 % (38.7-73.9); Platelet Count 162 T/CUMM (130-400); Red Blood Count 3.47 MC/CUMM (3.8-5.5); Red Cell Distribution Width 15.4 % (9.3-17.3)
[2020-12-21 05:21] LABS: Lymphocytes 3 % (20-55); Platelet Estimate Adequate; Segmented Neutrophils 95 % (50-85); Total Cells Counted 100
[2020-12-21 05:22] LABS: Hypochromasia Slight; Microcytosis Slight
[2020-12-21 05:32] LABS: Calcium 8.1 MG/DL (8.5-10.1); Potassium 4.6 MMOL/L (3.5-5.1)
[2020-12-21] MEDS ORDERED: GLUCAGON 1 MG VIAL IM PRN (05:48)
[2020-12-21] MEDS ORDERED: DEXTROSE 50% 25 GM/50 ML VIAL IV PRN (05:48)
[2020-12-21] MEDS ORDERED: INSULIN REGULAR 100 UNIT/ML ONE (06:01)
[2020-12-21] MEDS: INSULIN REGULAR 100 UNIT/ML SUBCUT SCH ×4 (06:33→21:28)
[2020-12-21] MEDS: amLODIPine 10 MG TABLET PO SCH (08:59)
[2020-12-21] MEDS: MORPHINE 2 MG/1 ML SYRINGE IV PRN ×4 (08:59→20:50)
[2020-12-21] MEDS: AZITHROMYCIN 250 MG TABLET PO SCH (08:59)
[2020-12-21] MEDS: PREGABALIN 75 MG CAPSULE PO SCH ×3 (08:59→20:40)
[2020-12-21] MEDS ORDERED: INSULIN GLARGINE 100 UNIT/ML SUBCUT SCH ×2 (09:00→21:00)
[2020-12-21] MEDS: cefTRIAXone 1,000 MG in SODIUM CHLORIDE 0.9% 100 ML IV SCH (09:00)
[2020-12-21 13:10] LABS: Calcium 8.5 MG/DL (8.5-10.1); Osmolality,Calculated 297.5 MOS/KG (273-304); Potassium 4.2 MMOL/L (3.5-5.1)
[2020-12-21] MEDS ORDERED: INSULIN GLARGINE 100 UNIT/ML SUBCUT ONE ×2 (13:25→16:30)
[2020-12-21] MEDS: ALBUTEROL 2.5 MG/3 ML NEB RESP TX SCH ×2 (16:03→20:14)
[2020-12-21 18:24] LABS: Bacteria,Urine Occasional /HPF (Few); Bilirubin,Urine Negative (Negative); Blood, Urine Small mg/dL (Negative); Glucose,Urine (UA) >=500 mg/dL (Negative); Ketones,Urine Negative (Negative); Nitrite,Urine Negative (Negative); Protein,Urine >=500 MG/DL; RBC,Urine 2 /HPF (0-4); Squamous Epithelial Cell,Urine Occasional /HPF (0-10); Urine Appearance Slightly Hazy (Clear); Urine Color Yellow (Yellow); Urine Specific Gravity 1.026 (1.001-1.035); Urine Urobilinogen < 2.0 EU/DL (0.2-1.0)
[2020-12-21] MEDS: ENOXAPARIN 40 MG/0.4 ML SYRINGE SUBCUT SCH (20:40)
[2020-12-22] MEDS: ALBUTEROL 2.5 MG/3 ML NEB RESP TX SCH ×2 (00:08→07:15)
[2020-12-22 02:15] LABS: Basophils % 0.1 % (0.0-0.8); Eosinophils % 0.1 % (0.00-10.9); Hematocrit 29.6 VOL% (35.7-47.0); Hemoglobin 9.7 GM/DL (12.0-16.0); Immature Granulocytes % 0.5 %; Lymphocytes # 2.1 10*3/uL (1.4-4.0); Lymphocytes % 9.8 % (21.3-54.2); Mean Corpuscular HGB Conc 32.8 GM/DL (32-36); Mean Corpuscular Volume 96.4 FL (87-102); Mean Platelet Volume 12.9 FL (9.6-12.0); Monocytes % 4.9 % (1.7-12.7); Neutrophils % 84.6 % (38.7-73.9); Platelet Count 143 T/CUMM (130-400); Red Blood Count 3.07 MC/CUMM (3.8-5.5); Red Cell Distribution Width 15.6 % (9.3-17.3); White Blood Count 20.9 T/CUMM (4-12)
[2020-12-22 02:28] LABS: Calcium 8.4 MG/DL (8.5-10.1); Osmolality,Calculated 293.8 MOS/KG (273-304); Potassium 4.4 MMOL/L (3.5-5.1)
[2020-12-22 03:43] LABS: Hypochromasia 1+; Platelet Estimate Normal
[2020-12-22 07:30] VITALS: BP 171/88
[2020-12-22] MEDS: MORPHINE 2 MG/1 ML SYRINGE IV PRN (07:35)
[2020-12-22] MEDS: amLODIPine 10 MG TABLET PO SCH (07:35)
[2020-12-22] MEDS: PREGABALIN 75 MG CAPSULE PO SCH (07:35)
[2020-12-22] MEDS: AZITHROMYCIN 250 MG TABLET PO SCH (07:35)
[2020-12-22] MEDS: INSULIN REGULAR 100 UNIT/ML SUBCUT SCH (07:37)
[2020-12-22] MEDS: cefTRIAXone 1,000 MG in SODIUM CHLORIDE 0.9% 100 ML IV SCH (08:07)
[2020-12-22] MEDS ORDERED: predniSONE 20 MG TABLET PO SCH (09:00)
[2020-12-22] MEDS ORDERED: INSULIN GLARGINE 100 UNIT/ML SUBCUT SCH (09:00)
[2020-12-22] MEDS ORDERED: methylPREDNISolone SOD SUC 40 MG/1 ML VIAL IV SCH (09:00)
== END 2020-12-22 10:39 | disposition home or self-care (01) | DRG 194 ==
LOC: N.ED 11:29 → N.EDINP 11:29 → N.5E 17:06
PROVIDERS: ADMIT Internal Medicine; ATTEND Internal Medicine

== ENCOUNTER 2021-01-04 11:46 | Observation (INO) ==
[2021-01-04 14:00] LABS: Basophils % 0.3 % (0.0-0.8); Eosinophils # 0.1 10*3/uL (0.0-0.87); Eosinophils % 0.7 % (0.00-10.9); Hematocrit 33.7 VOL% (35.7-47.0); Hemoglobin 10.5 GM/DL (12.0-16.0); Immature Granulocytes % 0.6 %; Immature Granulocytes Absolute 0.07 #; Lymphocytes # 0.9 10*3/uL (1.4-4.0); Lymphocytes % 7.5 % (21.3-54.2); Mean Corpuscular HGB Conc 31.2 GM/DL (32-36); Mean Corpuscular Volume 101.8 FL (87-102); Mean Platelet Volume 12.2 FL (9.6-12.0); Monocytes % 2.3 % (1.7-12.7); Neutrophils % 88.6 % (38.7-73.9); Platelet Count 305 T/CUMM (130-400); Red Blood Count 3.31 MC/CUMM (3.8-5.5); Red Cell Distribution Width 16.1 % (9.3-17.3); White Blood Count 11.9 T/CUMM (4-12)
[2021-01-04 14:11] LABS: PT Patient Result 10.7 SECS (10.5-12.0)
[2021-01-04 14:22] LABS: Alanine Aminotransferase 55 U/L (13-56); Albumin 1.8 G/DL (3.4-5.0); Alkaline Phosphatase 409 U/L (45-117); Aspartate Amino Transferase 23 U/L (0-37); Bilirubin,Total < 0.39 MG/DL (0.20-1.00); Blood Urea Nitrogen 20 MG/DL (7-18); Calcium 8.3 MG/DL (8.5-10.1); Carbon Dioxide 24 MMOL/L (21-32); Estimated Glom Filtration Rate 73 ML/MIN; Glucose 178 MG/DL (74-106); Potassium 4.1 MMOL/L (3.5-5.1); Sodium 143 MMOL/L (136-145); Total Protein 6.2 G/DL (6.4-8.2)
[2021-01-04] MEDS ORDERED: GLUCAGON 1 MG VIAL IM PRN (15:44)
[2021-01-04] MEDS ORDERED: DEXTROSE 50% 25 GM/50 ML VIAL IV PRN (15:44)
[2021-01-04] MEDS ORDERED: ONDANSETRON 4 MG/2 ML VIAL IV PRN (15:45)
[2021-01-04] MEDS ORDERED: ACETAMINOPHEN 325 MG TABLET PO PRN (15:45)
[2021-01-04] MEDS ORDERED: BISACODYL 5 MG TABLET PO PRN (15:45)
[2021-01-04] MEDS ORDERED: ALBUTEROL 2.5 MG/3 ML NEB RESP TX PRN (15:47)
[2021-01-04] MEDS ORDERED: hydrALAZINE 20 MG/1 ML VIAL IV PRN ×2 (15:56→21:31)
[2021-01-04] MEDS ORDERED: LACTATED RINGERS 1,000 ML IV SCH (16:00)
[2021-01-04] MEDS ORDERED: SODIUM CHLORIDE 0.9% 1,000 ML IV SCH (16:00)
[2021-01-04] MEDS ORDERED: amLODIPine 10 MG TABLET PO SCH (16:00)
[2021-01-04] MEDS: ENOXAPARIN 40 MG/0.4 ML SYRINGE SUBCUT SCH (16:25)
[2021-01-04] MEDS ORDERED: carvediloL 3.125 MG TABLET PO SCH (17:00)
[2021-01-04 17:36] LABS: Hyaline Casts,Urine 15 /LPF (0-3); Mucus,Urine Occasional /LPF (Occasional); RBC,Urine 3 /HPF (0-4); Squamous Epithelial Cell,Urine Occasional /HPF (0-10); Urine Appearance Clear (Clear); Urine Color Yellow (Yellow); Urine Specific Gravity 1.021 (1.001-1.035)
[2021-01-04 17:37] LABS: Bilirubin,Urine Negative (Negative); Blood, Urine Small mg/dL (Negative); Glucose,Urine (UA) >=500 mg/dL (Negative); Ketones,Urine Negative (Negative); Nitrite,Urine Negative (Negative); Protein,Urine >=500 MG/DL
[2021-01-04] MEDS ORDERED: DEXTROSE 5% LACTATED RINGERS 1,000 ML IV SCH (21:00)
[2021-01-04] MEDS ORDERED: cloNIDine 0.1 MG TABLET PO PRN (21:31)
[2021-01-05] MEDS: PREGABALIN 75 MG CAPSULE PO SCH ×2 (01:18→09:27)
[2021-01-05 06:08] LABS: Basophils % 0.3 % (0.0-0.8); Eosinophils # 0.2 10*3/uL (0.0-0.87); Eosinophils % 1.9 % (0.00-10.9); Hematocrit 32.7 VOL% (35.7-47.0); Hemoglobin 10.5 GM/DL (12.0-16.0); Immature Granulocytes % 0.3 %; Immature Granulocytes Absolute 0.03 #; Lymphocytes # 1.3 10*3/uL (1.4-4.0); Lymphocytes % 13.8 % (21.3-54.2); Mean Corpuscular HGB Conc 32.1 GM/DL (32-36); Mean Corpuscular Volume 99.7 FL (87-102); Mean Platelet Volume 12.6 FL (9.6-12.0); Monocytes % 5.6 % (1.7-12.7); Neutrophils % 78.1 % (38.7-73.9); Platelet Count 311 T/CUMM (130-400); Red Blood Count 3.28 MC/CUMM (3.8-5.5); Red Cell Distribution Width 15.9 % (9.3-17.3); White Blood Count 9.4 T/CUMM (4-12)
[2021-01-05 06:29] LABS: Albumin 1.8 G/DL (3.4-5.0); Bilirubin,Total 0.5 MG/DL (0.20-1.00); Calcium 8.4 MG/DL (8.5-10.1); Osmolality,Calculated 288.5 MOS/KG (273-304); Potassium 3.6 MMOL/L (3.5-5.1); Risk Ratio 6.49; VLDL Cholesterol 37.8 MG/DL
[2021-01-05] MEDS ORDERED: LOSARTAN 25 MG TABLET PO SCH (09:00)
[2021-01-05] MEDS ORDERED: PANTOPRAZOLE 40 MG TABLET PO SCH (09:00)
[2021-01-05] MEDS ORDERED: GLUCAGON 1 MG VIAL IM PRN (09:11)
[2021-01-05] MEDS ORDERED: DEXTROSE 50% 25 GM/50 ML VIAL IV PRN (09:11)
[2021-01-05] MEDS: carvediloL 3.125 MG TABLET PO SCH ×2 (09:15→16:54)
[2021-01-05] MEDS: INSULIN LISPRO 100 UNIT/ML SUBCUT SCH ×3 (10:11→16:56)
[2021-01-05] MEDS: ENOXAPARIN 40 MG/0.4 ML SYRINGE SUBCUT SCH (16:55)
[2021-01-05 16:57] VITALS: BP 138/84
[2021-01-05] MEDS ORDERED: INSULIN GLARGINE 100 UNIT/ML SUBCUT SCH (17:00)
[2021-01-05] MEDS ORDERED: ATORVASTATIN 40 MG TABLET PO SCH (21:00)
== END 2021-01-05 17:25 | disposition home or self-care (01) ==
LOC: EDBD → EDUNIT# → N.ED 11:46 → N.EDINP 11:46 → SUATTDRO 15:54 → N.3E 23:00
PROVIDERS: ADMIT Internal Medicine; ATTEND Internal Medicine